=== PATIENT | female | born 1950 | race African-American/Black ===

== ENCOUNTER 2016-11-03 00:07 | Inpatient (IN) | payer OTHER ==
[~2016-11-03] VITALS: Ht 152.4 cm; Wt 134.0 kg
[2016-11-03] VITALS (7 sets, daily range): BP systolic 111–172; BP diastolic 49–92
--- NOTE | ~2016-11-03 | HC ---
[facility] [address] [place] [address] CONSULTATION Name: RADHA ALEMAN Room #: 455-P ADM IN M.R.#: [id number] Admission: 11/03/16 Attend Phys: Gilberto Phillips MD Discharge: Date of : 50 Report #: [id number] THIS REPORT FOR: //name// CC: [facility] REASON FOR ADMISSION: Shortness of breath and chest tightness. REASON FOR PRESENTATION: Chronic kidney disease. HISTORY OF PRESENT ILLNESS: This is a 67-year-old who is well known to me from my clinic. She stays at the [facility]. She has chronic kidney disease with a baseline creatinine of around 2. She is known to have obstructive sleep apnea. She is also known to have pulmonary hypertension, multiple sclerosis, diabetes mellitus and decubitus ulcers in the past. She presented to the emergency room complaining of shortness of breath. She utilizes chronic Pace catheters because of her multiple sclerosis. While taking a shower, she reported some chest tightness and shortness of breath and was brought to the emergency room for further evaluation. There was no PND or orthopnea. No nausea or vomiting. From the renal perspective, the patient has a baseline creatinine of around 2. Unfortunately, she has had numerous worsening of her kidney function because of over-diuresis and combination of diuretics in the past. I have tried to keep her out of the hospital by managing her diuretics and coordinating care with the [facility]. When she presented to the emergency room yesterday, she was found to be hyperkalemic. As far as I remember, her longterm physicians managing her diuretics sometimes add metolazone and this complicates her potassium issues. So, she gets placed on some potassium supplement along with spironolactone. This usually results in hyperkalemia. I was consulted to manage her hyperkalemia and her CKD. PAST MEDICAL HISTORY: 1. Pulmonary hypertension. 2. Chronic kidney disease stage 3. 3. Diabetes mellitus. 4. Pulmonary hypertension. 5. Obstructive sleep apnea. 6. Anemia. 7. Remote history of sacral decubitus. 8. Obesity. MEDICATIONS: 1. Gabapentin. 2. Aspirin. 3. Amlodipine. 4. Hydrocodone. [address] [address] CONSULTATION Name: RADHA ALEMAN Room #: 455-P [facility] IN .R.#: [id number] Admission: 11/03/16 Attend Phys: Gilberto Phillips MD Discharge: Date of : 50 Report #: [id number] 5. Folic acid. 6. Insulin. ALLERGIES: No known drug allergies. SOCIAL HISTORY: She resides at the [facility]. No drug or alcohol abuse. FAMILY HISTORY: Significant for hypertension and diabetes mellitus. REVIEW OF SYSTEMS: GENERAL: No fever or chills. CARDIOVASCULAR: Significant for chest pain and chest tightness. PULMONARY: No cough or hemoptysis. GASTROINTESTINAL: Occasional nausea, but no vomiting. GENITOURINARY: No frequency, no urgency. PHYSICAL EXAMINATION: GENERAL: The patient was alert, oriented, in no apparent distress. VITAL SIGNS: Most recent vitals revealed a blood pressure of 140/55, pulse rate of 85 and temperature of 36.8. HEAD AND NECK: No jugular venous distention, no bruit, no thyromegaly. CHEST: Decreased air entry bilaterally. CARDIOVASCULAR: Regular, with no rub detected. ABDOMEN: Soft, nontender with no hepatosplenomegaly. LOWER EXTREMITIES: Trace edema. LABORATORY DATA: Laboratory values reviewed. Hemoglobin is 8.3. Potassium is down to 6, creatinine is 2.5. ASSESSMENT, IMPRESSION AND PLAN: 1. Chronic kidney disease. 2. Hyperkalemia. 3. Pulmonary hypertension. 4. Obstructive sleep apnea. 5. Multiple sclerosis. 6. Discontinue spironolactone and potassium supplement. 7. Treat her hyperkalemia. 8. Gentle diuresis. 9. Avoid combination of diuretics. 10. Continue to address her current pulmonary and cardiac issues, including her COPD and her obstructive sleep apnea. 11. Cardiac workup. 12. Routine care for her multiple sclerosis. 13. I will communicate with the nursing facility [place] [address] CONSULTATION Name: RADHA ALEMAN Room #: 455-P ADM IN M.R.#: [id number] Admission: 11/03/16 Attend Phys: Gilberto Phillips MD Discharge: Date of : 50 Report #: [id number] regimen and the need to stay away from the combination of diuretics, potassium supplement and Aldactone. <ELECTRONICALLY SIGNED> By: Josep Monsalve MD 11/05/16 1554 1017 1253 Josep Monsalve MD /nt
--- NOTE | ~2016-11-03 | EKG ---
[place] [address] [facility] [place] [address] ELECTROCARDIOGRAM REPORT Name: RADHA ALEMAN Room #: 455-P ADM IN M.R.#: [id number] Admission: 11/03/16 Attend Phys: Michoacano Olivas MD Discharge: Date of : 50 Report #: [id number] THIS REPORT FOR: //name// [facility] ED Test Date: 2016-11-03 Test Time: 00:16:21 Pat Name: RADHA ALEMAN Department: Room: [facility] Gender: F Field Crop Farmer: ROSEEIAARON : 1950 Requested By: Tena Worrell Order Number: [id number] MD: Camden Rudolph Measurements Intervals [place] Rate: 82 P: OR: QRS: -36 QRSD: 154 T: 66 QT: 414 QTc: 484 Interpretive Statements Accelerated junctional rhythm Right bundle branch block Left ventricular hypertrophy Baseline wander in lead(s) V1 Compared to ECG 05/17/2016 06:58:58 Accelerated junctional rhythm now present Sinus rhythm no longer present Electronically Signed On 11-03-2016 7:47:58 DAMAGE APPRAISER by Camden Rudolph [email or web address] <ELECTRONICALLY SIGNED> By: Camden Rudolph MD, [facility] 11/03/16 0747 0016 0016 Camden Rudolph MD, [facility] /EPI
[~2016-11-03 00:07] MED LIST: ACID CONTROL20 MG PO; ALDACTONE25 MG PO; ALLOPURINOL 10100 M1 PO; BAYER CHEWABLE81 MG PO; BREWER'S YEAST500 MG PO; COLACE100 MG PO; COREG25 MG PO; DEMADEX 2020 MG/1 TA PO; DUONEB 0.5 MG-33 ML INH; ESCITALOPRAM OX20 MG PO; FLORASTOR250 MG PO; FOLIC ACID1 MG PO; GABAPENTIN 100100 MG PO; GENTAMICIN 0.1% TOP; GLYCOLAX255 GM PO; HUMALOG100 UNIT/1; HYDRALAZINE 2525 M1 PO; HYDRALAZINE 5050 MG PO; IRON325 PO; JANUVIA100 MG PO; KLOR-CON 1010 MEQ PO; KLOR-CON M2020 MEQ PO; LANTUS SOL100 UNIT/1 SUBQ; LASIX 40 MG TAB40 M2 PO; LEVAQUIN 250 M250 MG PO; LEVEMIR SUBQ; LEXAPRO 10 MG T10 M1 PO; LISINOPRIL40 MG PO; LOPERAMIDE2 MG PO; MELATONIN1 MG PO; MELATONIN3 MG PO; METOLAZONE 2.52.5 M1 PO; MIRALAX17 G1 PO; MIRALAX17 GM PO; NABUMETONE 750750 M1 PO; NEURONTIN 400M400 M2 PO; NORCO 10-325 T1 EACH PO; NORCO 5-325 TA1 EACH PO; NORVASC10 MG PO; NOVOLOG100 UNIT/1 SUBQ; SYSTANE GEL EYE10 ML OP; TYLENOL325 MG PO; VENTOLIN HFA 1818 GM INH; VITAMIN C500 M1 PO; VITAMIN D2000 UNIT PO
[2016-11-03 00:28] LABS: ABSOLUTE NEUTROPHILS 11.7 thou/uL (1.4-8.2); BASOPHILS 0.5 % (0.0-2.0); EOSINOPHILS 6.6 % (0.0-3.0); HEMATOCRIT 31.9 % (37.0-47.0); HEMOGLOBIN 10.1 gm/dL (12.0-15.0); LYMPHOCYTES 14.3 % (24.0-44.0); MCH 29.6 pg (26.0-34.0); MCHC 31.7 % (28.0-37.0); MCV 93.5 fL (80.0-100.0); MONOCYTES 4.5 % (1.0-8.0); PLATELET COUNT 264 thou/uL (150-400); POLYS 74.1 % (36.0-66.0); RBC 3.41 mil/uL (4.20-5.00); RDW 16.9 % (10.5-14.5); WBC 15.8 thou/uL (4.0-11.0)
[2016-11-03 00:32] LABS: MANUAL DIFF NO
[2016-11-03 00:37] LABS: ANION GAP 12 mmol/L (7-16); BUN 40 mg/dL (7-18); CALCIUM 9.1 mg/dL (8.5-10.1); CHLORIDE 105 mmol/L (98-107); CO2 23 mmol/L (21-32); GLUCOSE 192 mg/dL (70-99); POTASSIUM 4.8 mmol/L (3.5-5.1); SODIUM 140 mmol/L (136-145)
[2016-11-03 00:51] LABS: ALBUMIN 3.5 g/dL (3.4-5.0); ALKALINE PHOSPHATASE 90 U/L (46-116); NT-PRO BRAIN NAT PEPTIDE 2346 pg/mL (<300); SGOT 10 U/L (15-37); SGPT 14 U/L (30-65); TOTAL BILIRUBIN 0.4 mg/dL (<0.1-1.0); TOTAL PROTEIN 8.7 g/dL (6.4-8.2); TROPONIN-I < 0.04 ng/mL (<0.04-0.07)
[2016-11-03] MEDS ORDERED: MELATONIN3 MG PO (01:16)
[2016-11-03] MEDS ORDERED: NEURONTIN 300300 M1 PO (01:18)
[2016-11-03 11:08] LABS: CHOLESTEROL 196 mg/dL (<200); HDL CHOLESTEROL 48 mg/dL (>40); LDL CHOLESTEROL 135 mg/dL (<100); TC:HDL 4.1 Ratio (Not establshd); TRIGLYCERIDE 65 mg/dL (<150); VLDL 13 mg/dL (<40)
[2016-11-03 11:09] LABS: SERUM ASSESSMENT Clear
[2016-11-04 04:26] VITALS: BP 128/58
[2016-11-04 06:01] LABS: ALBUMIN 3.1 g/dL (3.4-5.0); ALKALINE PHOSPHATASE 70 U/L (46-116); ANION GAP 12 mmol/L (7-16); BUN 52 mg/dL (7-18); CALCIUM 8.8 mg/dL (8.5-10.1); CHLORIDE 102 mmol/L (98-107); CO2 22 mmol/L (21-32); CREATININE 2.4 mg/dL (0.6-1.3); GLUCOSE 268 mg/dL (70-99); MAGNESIUM 1.9 mg/dL (1.8-2.4); SGOT < 5 U/L (15-37); SGPT 12 U/L (30-65); SODIUM 136 mmol/L (136-145); TOTAL BILIRUBIN 0.3 mg/dL (<0.1-1.0); TOTAL PROTEIN 7.7 g/dL (6.4-8.2)
[2016-11-04 06:23] LABS: POTASSIUM 6.4 mmol/L (3.5-5.1)
[2016-11-04 07:00] LABS: HEMATOCRIT 26.7 % (37.0-47.0); HEMOGLOBIN 8.3 gm/dL (12.0-15.0); MCH 29.4 pg (26.0-34.0); MCV 94.8 fL (80.0-100.0); PLATELET COUNT 210 thou/uL (150-400); RBC 2.81 mil/uL (4.20-5.00); WBC 12.5 thou/uL (4.0-11.0)
[2016-11-04 07:13] LABS: CALCIUM 9.3 mg/dL (8.5-10.1); CREATININE 2.5 mg/dL (0.6-1.3)
[2016-11-04 07:29] LABS: MANUAL DIFF YES
[2016-11-04 08:10] VITALS: BP 141/55
[2016-11-04 08:53] LABS: ANISOCYTOSIS 1+; TOTAL CELL COUNT 100
[2016-11-04 12:38] VITALS: BP 127/50
[2016-11-04 15:42] VITALS: BP 148/69
[2016-11-04 20:00] VITALS: BP 149/55
[2016-11-05 04:00] VITALS: BP 149/68
[2016-11-05 04:41] LABS: HEMATOCRIT 24.3 % (37.0-47.0); HEMOGLOBIN 7.7 gm/dL (12.0-15.0); MCH 29.4 pg (26.0-34.0); MCHC 31.8 % (28.0-37.0); MCV 92.6 fL (80.0-100.0); PLATELET COUNT 210 thou/uL (150-400); RBC 2.62 mil/uL (4.20-5.00); RDW 16.8 % (10.5-14.5); WBC 12.3 thou/uL (4.0-11.0)
[2016-11-05 04:49] LABS: ALKALINE PHOSPHATASE 66 U/L (46-116); ANION GAP 11 mmol/L (7-16); BUN 57 mg/dL (7-18); CALCIUM 8.7 mg/dL (8.5-10.1); CHLORIDE 102 mmol/L (98-107); CO2 26 mmol/L (21-32); CREATININE 2.4 mg/dL (0.6-1.3); GLUCOSE 308 mg/dL (70-99); MANUAL DIFF YES; SGOT < 5 U/L (15-37); SGPT 14 U/L (30-65); SODIUM 139 mmol/L (136-145); TOTAL BILIRUBIN 0.3 mg/dL (<0.1-1.0); TOTAL PROTEIN 7.2 g/dL (6.4-8.2)
[2016-11-05 05:02] LABS: POTASSIUM 4.5 mmol/L (3.5-5.1)
[2016-11-05 06:14] LABS: ABSOLUTE NEUTROPHILS 11.1 thou/uL (1.4-8.2); ANISOCYTOSIS 1+; TOTAL CELL COUNT 100
[2016-11-05 07:14] VITALS: BP 136/46
[2016-11-05 12:32] VITALS: BP 126/45
[2016-11-05 15:30] VITALS: BP 134/59
[2016-11-05 19:31] VITALS: BP 132/56
[2016-11-06 03:28] VITALS: BP 151/57
[2016-11-06 06:37] LABS: ALBUMIN 2.9 g/dL (3.4-5.0); CALCIUM 8.4 mg/dL (8.5-10.1); CREATININE 2.1 mg/dL (0.6-1.3); PHOSPHORUS 3.7 mg/dL (2.5-4.9)
[2016-11-06 07:08] VITALS: BP 172/80
[2016-11-06 08:08] LABS: POTASSIUM 4.4 mmol/L (3.5-5.1)
[2016-11-06 10:23] LABS: HEMATOCRIT 26.9 % (37.0-47.0); HEMOGLOBIN 8.8 gm/dL (12.0-15.0); MCH 30.1 pg (26.0-34.0); MCHC 32.7 % (28.0-37.0); RBC 2.92 mil/uL (4.20-5.00); RDW 17.2 % (10.5-14.5); WBC 10.8 thou/uL (4.0-11.0)
[2016-11-06 10:27] LABS: URINE BILIRUBIN NEGATIVE (Negative); URINE BLOOD TRACE (Negative); URINE COLOR YELLOW; URINE GLUCOSE-RANDOM* NEGATIVE (Negative); URINE KETONES NEGATIVE (Negative); URINE NITRITE POSITIVE (Negative); URINE PROTEIN (DIPSTICK) NEGATIVE (Negative); URINE SPECIFIC GRAVITY 1.015 (1.003-1.035); URINE UROBILINOGEN 0.2 E.U./dl (0.2-1.0)
[2016-11-06 10:31] LABS: CASTS None Seen /LPF (None Seen); CRYSTALS None Seen /LPF (None Seen); SQUAMOUS 0-3 Few /LPF (0-3); URINE RBC None Seen /HPF (0-2); URINE WBC 6-15 Few /HPF (0-5)
[2016-11-06 11:49] VITALS: BP 150/63
[2016-11-06 16:06] VITALS: BP 136/65
[2016-11-06 19:42] VITALS: BP 116/64
[2016-11-07 00:18] VITALS: BP 132/60
[2016-11-07 03:28] VITALS: BP 138/67
[2016-11-07 04:27] LABS: HEMATOCRIT 25.8 % (37.0-47.0); HEMOGLOBIN 8.2 gm/dL (12.0-15.0); MCH 29.7 pg (26.0-34.0); MCHC 31.8 % (28.0-37.0); MCV 93.5 fL (80.0-100.0); RBC 2.76 mil/uL (4.20-5.00); RDW 17.2 % (10.5-14.5); WBC 7.1 thou/uL (4.0-11.0)
[2016-11-07 04:39] LABS: ALBUMIN 2.6 g/dL (3.4-5.0); CALCIUM 8.4 mg/dL (8.5-10.1); CREATININE 2.1 mg/dL (0.6-1.3); PHOSPHORUS 4.3 mg/dL (2.5-4.9); POTASSIUM 4.3 mmol/L (3.5-5.1)
[2016-11-07 08:20] VITALS: BP 142/69
[2016-11-07 11:44] VITALS: BP 142/75
[2016-11-07 16:00] VITALS: BP 130/63
[2016-11-07 19:38] VITALS: BP 147/62
[2016-11-08 04:14] VITALS: BP 132/59
[2016-11-08 05:47] LABS: HEMOGLOBIN 8.2 gm/dL (12.0-15.0); MCHC 32.7 % (28.0-37.0); RBC 2.72 mil/uL (4.20-5.00); RDW 16.9 % (10.5-14.5)
[2016-11-08 06:12] LABS: CALCIUM 8.3 mg/dL (8.5-10.1); CREATININE 2.1 mg/dL (0.6-1.3); POTASSIUM 4.4 mmol/L (3.5-5.1)
[2016-11-08 08:03] VITALS: BP 129/56
[2016-11-08] MEDS ORDERED: CARVEDILOL12.5 MG PO (11:40)
[2016-11-08] MEDS ORDERED: LANTUS100 UNIT/M SUBQ ×2 (11:40)
[2016-11-08] MEDS ORDERED: TORSEMIDE5 MG PO (11:40)
[2016-11-08] MEDS ORDERED: COZAAR 25 MG TA25 M1 PO (11:41)
[2016-11-08 11:55] VITALS: BP 157/70
== END 2016-11-08 19:12 | DRG 682 ==
LOC: ER 00:07 → 4W 01:35 → EROBS 01:35 → 4W 01:59
PROVIDERS: Emergency Medicine; Family Medicine; Hospitalist; Internal Medicine Nephrology; Nurse Practitioner; Nurse Practitioner Acute Care
DX: N17.9 Acute kidney failure, unspecified (principal); I50.33 Acute on chronic diastolic (congestive) heart failure; J96.01 Acute respiratory failure with hypoxia; J90 Pleural effusion, not elsewhere classified; J44.1 Chronic obstructive pulmonary disease with (acute) exacerbation; Z68.43 Body mass index [BMI] 50.0-59.9, adult; G35 Multiple sclerosis; E11.22 Type 2 diabetes mellitus with diabetic chronic kidney disease; E87.5 Hyperkalemia; D64.9 Anemia, unspecified; E11.65 Type 2 diabetes mellitus with hyperglycemia; I45.10 Unspecified right bundle-branch block; E66.9 Obesity, unspecified; I25.10 Atherosclerotic heart disease of native coronary artery without angina pectoris; G47.33 Obstructive sleep apnea (adult) (pediatric); I27.2 Other secondary pulmonary hypertension; N18.3 Chronic kidney disease, stage 3 (moderate); Z79.899 Other long term (current) drug therapy; Z79.2 Long term (current) use of antibiotics; Z79.82 Long term (current) use of aspirin; Z82.49 Family history of ischemic heart disease and other diseases of the circulatory system; Z83.3 Family history of diabetes mellitus; Z87.891 Personal history of nicotine dependence
CPT/HCPCS: 10045

== ENCOUNTER 2016-12-31 10:08 | Emergency (ER) | payer OTHER ==
[~2016-12-31] VITALS: Ht 152.4 cm; Wt 124.7 kg
[~2016-12-31 10:08] MED LIST changes: +CARVEDILOL12.5 MG PO; +COZAAR 25 MG TA25 M1 PO; +LANTUS100 UNIT/M SUBQ; +NEURONTIN 300300 M1 PO; +TORSEMIDE5 MG PO
[2016-12-31 13:26] LABS: ABSOLUTE NEUTROPHILS 7.7 thou/uL (1.4-8.2); BASOPHILS 0.8 % (0.0-2.0); HEMATOCRIT 25.6 % (37.0-47.0); HEMOGLOBIN 8.3 gm/dL (12.0-15.0); LYMPHOCYTES 14.7 % (24.0-44.0); MCHC 32.4 g/dL (28.0-37.0); MCV 89.5 fL (80.0-100.0); MONOCYTES 6.2 % (1.0-8.0); PLATELET COUNT 255 thou/uL (150-400); POLYS 75.3 % (36.0-66.0); RBC 2.86 mil/uL (4.20-5.00); RDW 18.1 % (10.5-14.5); WBC 10.2 thou/uL (4.0-11.0)
[2016-12-31 13:27] LABS: MANUAL DIFF NO
[2016-12-31 13:32] LABS: CALCIUM 8.9 mg/dL (8.5-10.1); CREATININE 2.3 mg/dL (0.6-1.3); POTASSIUM 4.1 mmol/L (3.5-5.1)
[2016-12-31 13:39] LABS: APTT 27.8 Seconds (24.5-32.8); PROTIME 10.4 Seconds (9.3-11.4)
== END 2016-12-31 17:24 | disposition home or self-care (01) ==
LOC: ER 10:08
PROVIDERS: Emergency Medicine
DX: R04.2 Hemoptysis (principal); D64.9 Anemia, unspecified; G35 Multiple sclerosis; G47.30 Sleep apnea, unspecified; E66.9 Obesity, unspecified; E11.9 Type 2 diabetes mellitus without complications; F41.9 Anxiety disorder, unspecified; M10.9 Gout, unspecified; I13.0 Hypertensive heart and chronic kidney disease with heart failure and stage 1 through stage 4 chronic kidney disease, or unspecified chronic kidney disease; N18.9 Chronic kidney disease, unspecified; I50.9 Heart failure, unspecified; K74.60 Unspecified cirrhosis of liver; Z87.891 Personal history of nicotine dependence; Z68.43 Body mass index [BMI] 50.0-59.9, adult

== ENCOUNTER 2017-01-25 15:12 | Emergency (ER) | payer OTHER ==
[~2017-01-25] VITALS: Ht 162.6 cm; Wt 113.4 kg
== END 2017-01-25 17:54 ==
LOC: ER 15:12
DX: S91.111A Laceration without foreign body of right great toe without damage to nail, initial encounter (principal); G35 Multiple sclerosis; G47.30 Sleep apnea, unspecified; E11.22 Type 2 diabetes mellitus with diabetic chronic kidney disease; I13.0 Hypertensive heart and chronic kidney disease with heart failure and stage 1 through stage 4 chronic kidney disease, or unspecified chronic kidney disease; N18.9 Chronic kidney disease, unspecified; I50.22 Chronic systolic (congestive) heart failure; J44.9 Chronic obstructive pulmonary disease, unspecified; K74.60 Unspecified cirrhosis of liver; E66.9 Obesity, unspecified; Z68.41 Body mass index [BMI] 40.0-44.9, adult; F41.9 Anxiety disorder, unspecified; Z86.2 Personal history of diseases of the blood and blood-forming organs and certain disorders involving the immune mechanism; Z96.0 Presence of urogenital implants; Z87.891 Personal history of nicotine dependence; W22.8XXA Striking against or struck by other objects, initial encounter; Y93.89 Activity, other specified; Y92.89 Other specified places as the place of occurrence of the external cause; Y99.9 Unspecified external cause status

== ENCOUNTER 2017-03-23 14:48 | Emergency (ER) | payer OTHER ==
[~2017-03-23] VITALS: Ht 152.4 cm; Wt 133.4 kg
[2017-03-23 16:00] LABS: HEMATOCRIT 22.1 % (37.0-47.0); HEMOGLOBIN 7.1 gm/dL (12.0-15.0); MCH 29.2 pg (26.0-34.0); MCHC 32.3 g/dL (28.0-37.0); MCV 90.3 fL (80.0-100.0); RBC 2.45 mil/uL (4.20-5.00); RDW 18.8 % (10.5-14.5); WBC 8.6 thou/uL (4.0-11.0)
[2017-03-23 16:08] LABS: CALCIUM 8.7 mg/dL (8.5-10.1); CREATININE 2.9 mg/dL (0.6-1.0); POTASSIUM 4.8 mmol/L (3.5-5.1)
== END 2017-03-23 17:44 | disposition home or self-care (01) ==
LOC: ER 14:48
PROVIDERS: Emergency Medicine
DX: D64.89 Other specified anemias (principal); E11.22 Type 2 diabetes mellitus with diabetic chronic kidney disease; I13.0 Hypertensive heart and chronic kidney disease with heart failure and stage 1 through stage 4 chronic kidney disease, or unspecified chronic kidney disease; N18.9 Chronic kidney disease, unspecified; I50.9 Heart failure, unspecified; E66.9 Obesity, unspecified; K74.60 Unspecified cirrhosis of liver; J44.9 Chronic obstructive pulmonary disease, unspecified; F41.9 Anxiety disorder, unspecified; Z96.0 Presence of urogenital implants; Z79.4 Long term (current) use of insulin; Z87.891 Personal history of nicotine dependence

== ENCOUNTER 2017-03-27 02:41 | Inpatient (IN) | payer OTHER ==
[2017-03-27] VITALS (8 sets, daily range): BP systolic 134–205; BP diastolic 60–84
[~2017-03-27] VITALS: Ht 152.4 cm; Wt 140.5 kg
--- NOTE | ~2017-03-27 | S ---
[facility] [place] [address] SURGICAL PATH RPT PROCEDURE Name: SAIRA ALEMAN Room #: 450-P [facility] IN M.R.#: [id number] Admission: 03/27/17 Date of : 50 Discharge: 03/31/17 Report #: [id number] Path Case #: [id number] PATHOLOGY REPORT COLLECTION DATE: 03/31/2017 RECEIVED DATE: 04/01/2017 SUBMITTING PHYS: Dr. Melani Steven OTHER PHYS: Dr. Tiffany Pretty SPECIMEN(S) RECEIVED: A.Bx of duodenum-random B.Bx of antral gastritis * * * * * * * * * * * * FINAL DIAGNOSIS: A. Small bowel, random duodenum, endoscopic biopsy: - No significant diagnostic abnormalities present. B. Gastric mucosa, gastritis, endoscopic biopsy: - Moderate reactive gastropathy with fibrotic lamina propria. - Negative for intestinal metaplasia or atrophy. - Negative for Helicobacter pylori. COMMENT: Helicobacter pylori immunohistochemical stain performed on block B1-negative. (IUV:mgr; d/t: 04/04/17) PATHOLOGIST: Enedelia Hawkins M.D. REPORT ELECTRONICALLY SIGNED BY: Enedelia Hawkins M.D. DATE/TIME: 04/04/2017 17:08 * * * * * * * * * * * * GROSS PATHOLOGY: A. Received in formalin labeled "Saira Aleman, BX of duodenumrandom," is a segment of valencia soft tissue measuring 0.4 x 0.2 x 0.2 cm in maximum dimension. The specimen is submitted entirely in cassette A1. B. Received in formalin labeled "Saira Aleman, BX of antral gastritis," are 4 segments of valencia soft tissue measuring 1.9 x 0.2 x 0.2 cm in aggregate dimensions and ranging from 0.3 to 0.6 cm in maximum dimension. The specimen is submitted entirely in cassette B1. (KYM; 04/01/2017) CLINICAL HISTORY: Anemia [facility] [address] [place] [address] SURGICAL PATH RPT PROCEDURE Name: SAIRA ALEMAN Room #: 450-[facility] IN M.R.#: [id number] Admission: 03/27/17 Date of : 50 Discharge: 03/31/17 Report #: [id number] Path Case #: [id number] INITIAL CPT CODE(S): A; 27011 B; 96843, 99242 Professional services performed by [facility] at [address] , [place] [address] Technical services performed by [facility] at [address] [place] [address], [address], [place] [address]. Jordan Valdes [facility] [address] [address] PHONE: [phone] DIRECTOR: Avinash Murphy M.D. * * * END OF REPORT * * *
--- NOTE | ~2017-03-27 | HC ---
[facility] [place] [address] CONSULTATION Name: RADHA ALEMAN Room #: 450-P ADM IN M.R.#: [id number] Admission: 03/27/17 Attend Phys: Tiffany Pretty MD Discharge: Date of : 50 Report #: [id number] THIS REPORT FOR: //name// CC: Gilberto DEE NEPHROLOGY CONSULTATION ATTENDING PHYSICIAN: Dr. Isabel. REASON FOR CONSULTATION: Chronic kidney disease. HISTORY OF PRESENT ILLNESS: The patient, well known to our service, has been seen on multiple admissions. She has chronic kidney disease with a baseline creatinine of about 2.5. She has morbid obesity with long-standing hypertension, diabetes, multiple sclerosis, for the most part bedbound and immobile, sleep apnea and chronic respiratory failure with home O2 at 3 liters. She became more short of breath. She came to the emergency room. She had extensive infiltrates which suggested possible edema or pneumonia and she was admitted. PAST MEDICAL HISTORY: She has the most part right-sided failure with a reasonably good left-sided ejection fraction. She has multiple the medical problems as eluded to above. She is DNR. ALLERGIES: No known medical allergies. SOCIAL HISTORY: Lives at home with her daughter. No code blue. FAMILY HISTORY: Negative for renal disease. REVIEW OF SYSTEMS: GENERAL: She has been feeling poorly. She is rather lethargic, not giving me a good history today. EYES: Vision seems to be okay. ENT: Hearing okay. She says she can swallow. ENDOCRINE: Positive for the diabetes. RESPIRATORY: Easily short-winded, chronically short winded, short winded at rest. CARDIAC: Denies any chest pains. GASTROINTESTINAL: Appetite is okay. GENITOURINARY: Chronic suprapubic catheter. SKELETAL: Chronic edema, particularly lower extremities. NEUROLOGIC: Weakness and paraparesis due to the multiple sclerosis. PHYSICAL EXAMINATION: GENERAL: Very obese woman, somewhat lethargic. [facility] [address] [place] [address] CONSULTATION Name: RADHA ALEMAN Room #: 450-P [facility] IN [facility].#: [id number] Admission: 03/27/17 Attend Phys: Tiffany Pretty MD Discharge: Date of : 50 Report #: [id number] SKIN: Very brawny edema in the lower extremities, rather massive. SKELETAL: Passively obese. HEENT: Extraocular movements are full. Vision intact. No scleral icterus. Hearing intact. Mucous membranes are slightly dry. NECK: Supple. Neck veins cannot be visualized. CHEST: Shows diminished breath sounds. HEART: Distant. ABDOMEN: Soft. EXTREMITIES: As above. LABORATORY DATA: Hemoglobin is only 7.8 with MCV of 89. Sodium 144, potassium 5, chloride 110, bicarbonate 24, BUN 57 and creatinine 2.5. Urinalysis pending. ASSESSMENT AND PLAN: 1. Chronic kidney disease. She has chronic kidney disease. I will stop her ARB as this may improve her renal perfusion. We will increase diuretics as she is quite fluid overloaded, probably was not on and off diuretics at home. 2. Multiple sclerosis with severe neurologic impairment. 3. Long-standing diabetes mellitus. 4. History of hypertension. 5. Right-sided heart failure with cor pulmonale. 6. Suprapubic catheter with frequent urinary tract infections. <ELECTRONICALLY SIGNED> By: Eriberto Reina MD 03/29/17 0718 1631 0116 Cesario Harrison MD /nt
--- NOTE | ~2017-03-27 | EKG ---
[address] [place] [address] ELECTROCARDIOGRAM REPORT Name: RADHA ALEMAN Room #: 450-P ADM IN M.R.#: [id number] Admission: 03/27/17 Attend Phys: Gilberto Phillips MD Discharge: Date of : 50 Report #: [id number] THIS REPORT FOR: //name// [facility] Test Date: 2017-03-27 Test Time: 10:11:57 Pat Name: RADHA AELMAN Department: Room: 450 P Gender: F Client Consultant: RAFA : 1950 Requested By: Gilberto Phillips Order Number: [id number] MD: Camden Rudolph Measurements Intervals [place] Rate: 69 P: 67 IN: 196 QRS: -41 QRSD: 149 T: 42 QT: 478 QTc: 512 Interpretive Statements Sinus rhythm RBBB and LAFB Compared to ECG 03/11/2017 11:11:56 No significant changes Electronically Signed On 03-27-2017 16:03:16 CDT by Camden Rudolph [email or web address] <ELECTRONICALLY SIGNED> By: Camden Rudolph MD, [facility] 03/27/17 1603 1011 1011 Camden Rudolph MD, [facility] /EPI
--- NOTE | ~2017-03-27 | EKG ---
[address] [place] [address] ELECTROCARDIOGRAM REPORT Name: RADHA ALEMAN Room #: 450-P ADM IN M.R.#: [id number] Admission: 03/27/17 Attend Phys: Gilberto Phillips MD Discharge: Date of : 50 Report #: [id number] THIS REPORT FOR: //name// [facility] ED Test Date: 2017-03-27 Test Time: 03:27:27 Pat Name: RADHA ALEMAN Department: Room: 450 P Gender: F Home Stereo Equipment Installer: Jeremiah GONG : 1950 Requested By: Jordan Valdes Order Number: [id number] MD: Camden Rudolph Measurements Intervals [place] Rate: 51 P: 67 DE: 168 QRS: -36 QRSD: 150 T: 28 QT: 526 QTc: 485 Interpretive Statements Sinus rhythm Right bundle branch block Compared to ECG 03/11/2017 11:11:56 No significant change was found Electronically Signed On 03-27-2017 16:02:53 CDT by Camden Rudolph [email or web address] <ELECTRONICALLY SIGNED> By: Camden Rudolph MD, [facility] 03/27/17 1602 0327 6 Camden Rudolph MD, [facility] /EPI
--- NOTE | ~2017-03-27 | HC ---
[facility] [place] [address] CONSULTATION Name: RADHA ALEMAN Room #: 450-P [facility] IN M.R.#: [id number] Admission: 03/27/17 Attend Phys: Gilberto Phillips MD Discharge: Date of : 50 Report #: [id number] THIS REPORT FOR: //name// CC: Gilberto KABA PCP DATE OF SERVICE: 03/27/2017 DATE OF SERVICE: 03/27/2017. REASON FOR CONSULTATION: Pulmonary infiltrates. IMPRESSION: 1. Pulmonary infiltrates, question edema versus pneumonia. 2. Chronic kidney disease. 3. Peripheral edema. 4. Hypertension. 5. Obstructive sleep apnea with possible obesity hypoventilation. 6. History of MS. 7. Indwelling Pace. 8. Question pulmonary fibrosis. PLAN: We will do BiPAP, aerosol therapy and culture. Diuresis per cardiology and renal. If elected, we will check sputum and urine strep and legionella. We will follow closely with. DVT prophylaxis per primary. HISTORY OF PRESENT ILLNESS: A 66-year-old female comes in with progressive edema, shortness of breath, cough. No nausea or vomiting, no chills. She relates she used to have a BiPAP; however, no longer has one. ALLERGIES: None known. MEDICATIONS: Included melatonin, nitrofurantoin, torsemide, glycol, Colace, Coreg, Pepcid, escitalopram, aspirin. FAMILY HISTORY: Positive for heart disease, congestive heart failure. SOCIAL HISTORY: Per chart, history of tobacco in past. Negative significant ETOH. PAST MEDICAL HISTORY: History of congestive heart failure, diastolic; hypertension, refractory; CKD; MS; obesity; chronic anemia; SIN. PAST SURGICAL HISTORY: Include suprapubic catheter, hysterectomy, cholecystectomy, tonsillectomy. [facility] [place] [address] CONSULTATION Name: RADHA ALEMAN Room #: 450-P [facility] IN ..#: [id number] Admission: 03/27/17 Attend Phys: Gilberto Phillips MD Discharge: Date of : 50 Report #: [id number] PHYSICAL EXAMINATION: VITAL SIGNS: Temperature 99, pulse 51, respiratory rate 20, and BP 134/60. EYES: Negative icterus. LUNGS: Crackles bilateral. HEART: Regular. ABDOMEN: Bowel sounds present. EXTREMITIES: Positive edema. LABORATORY DATA: PH 7.4, pCO2 of 34, pO2 of 66 on 10 liters. White count 11, hemoglobin 7.8, platelets 236. BUN 4311, creatinine 2.5. IMAGING STUDIES: Chest x-ray showed extensive bilateral infiltrates. We will follow closely with you. By: 1655 0012 Sugar Orellaan MD /nt
--- NOTE | ~2017-03-27 | 2DMMODE ---
[facility] [address] [place] [address] 2 D/M-MODE ECHOCARDIOGRAM Name: RADHA ALEMAN Room #: 450-P [facility] IN ..#: [id number] Admission: 03/27/17 Attend Phys: Joel Gutierrez Discharge: Date of : 50 Date of Service: 03/28/17 1058 Report #: [id number] THIS REPORT FOR: //name// APPROVED REPORT Study performed: 03/28/2017 09:47:23 EXAM: Comprehensive 2D, Doppler, and color-flow Echocardiogram Patient Location: Bedside Room #: [facility] Other Information Study Quality: Technically Difficult Indications Congestive Heart Failure COPD Diabetes Hypertension/HDD Echo Enhancing Agent Indication: Endocardial border delineation Agent(s) / Amount(s) Used: Definity 2 cc 2D Dimensions RVDd: 38.82 mm LVEF(%): 63.02 (>50%) IVSd: 12.21 (7-11mm) LVOT Diam: 20.22 (18-24mm) LVDd: 46.93 mm PWd: 12.50 (7-11mm) Ascending Ao: 32.22 (22-36mm) LVDs: 30.93 (25-40mm) Aortic Root: 27.88 mm IVC: 25.00 mm Malik's LVEF: 63.02 % Volumes Left Atrial Volume (Systole) Single Plane 4CH: 81.80 mL Single Plane 2CH: 83.13 mL LA ESV Index: 23.00 mL/m2 Aortic Valve AoV Peak Urbano.: 2.14 m/s AO Peak Gr.: 18.25 mmHg LVOT Max P.32 mmHg LVOT Max V: 0.91 m/s CHACE Vmax: 1.37 cm2 [facility] [place] [address] 2 D/M-MODE ECHOCARDIOGRAM Name: RADHA ALEMAN Room #: [facility] IN [facility].#: [id number] Admission: 03/27/17 Attend Phys: Joel Gutierrez Discharge: Date of : 50 Date of Service: 03/28/17 1058 Report #: [id number] Mitral Valve E/A Ratio: 1.2 MV Decel. Time: 230.87 ms MV E Max Urbano.: 1.09 m/s MV A Urbano.: 0.94 m/s MV PHT: 66.95 ms IVRT: 79.58 ms Pulmonary Valve PV Peak Urbano.: 1.06 m/s PV Peak Gr.: 4.48 mmHg Pulmonary Vein P Vein S: 0.59 m/s P Vein A: 0.27 m/s P Vein D: 0.39 m/s P Vein A Dur.: 110.7 msec P Vein S/D Ratio: 1.51 Tricuspid Valve RAP Estimate: 15.00 mmHg Left Ventricle The left ventricle is normal size. Mild concentric left ventricular hypertrophy. The left ventricular systolic function is normal. The left ventricular ejection fraction is within the normal range. LVEF is 60%. Right Ventricle Right ventricle size is normal. The right ventricular systolic function is normal. Atria The left atrium size is normal. The right atrium size is normal. Aortic Valve The aortic valve is mildly sclerotic. No aortic regurgitation is present. There is no aortic valvular stenosis. Mitral Valve The mitral valve is normal in structure. There is no mitral valve regurgitation noted. No evidence of mitral valve stenosis. Tricuspid Valve The tricuspid valve is normal in structure. Trace tricuspid regurgitation. Pulmonic Valve [facility] [address] [place] [address] 2 D/M-MODE ECHOCARDIOGRAM Name: ALEMANSUHARADHA Cale Room #: 450-P [facility] IN ..#: [id number] Admission: 03/27/17 Attend Phys: Joel Gutierrez Discharge: Date of : 50 Date of Service: 03/28/17 1058 Report #: [id number] The pulmonary valve is normal in structure. Trace pulmonic regurgitation. Great Vessels The aortic root is normal in size. IVC is dilated and collapses <50% with inspiration. Pericardium Trace pericardial effusion. There is no pleural effusion. <Conclusion> The left ventricle is normal size. Mild concentric left ventricular hypertrophy. The left ventricular systolic function is normal. The left atrium size is normal. Right ventricle size is normal. The left atrium size is normal. The aortic valve is mildly sclerotic. The mitral valve is normal in structure. Trace tricuspid regurgitation. Trace pericardial effusion. <ELECTRONICALLY SIGNED> By: Jamison Holguin MD 03/28/17 1058 1058 1058 Jamison Holguin MD /INF
--- NOTE | ~2017-03-27 | D ---
[facility] [place] [address] DISCHARGE SUMMARY Name: RADHA ALEMAN Room #: 450-P ADM IN M.R.#: [id number] Admission: 03/27/17 Attend Phys: Tiffany Pretty MD Discharge: Date of : 50 Report #: [id number] THIS REPORT FOR: //name// CC: Gilberto Phillips NO PCP Tiffany Pretty DATE OF SERVICE: 03/30/2017 HISTORY OF PRESENT ILLNESS: The patient is a 66-year-old female with multiple medical problems, including advanced MS and history of CHF, who came to the hospital with progressively worsening shortness of breath. Please refer to admission H and P for details. In brief, the patient was found to be in pulmonary edema and respiratory failure. HOSPITALIZATION COURSE: The patient was hospitalized at [facility]. The patient was started on IV diuretics. Real Estate Photographer and ultrasound manager were consulted. Since infiltrates could not be ruled out on the chest x-ray, the patient was also treated with antibiotics for possible pneumonia. On IV diuresis, the patient's condition improved significantly. IV Lasix was changed to the p.o. torsemide. The patient did well. The patient also was found to have acute on chronic anemia, with hemoglobin of less than 7. She received blood transfusion. The patient has guaiac positive stools. GI team was consulted. However, the patient declined EGD and colonoscopy at this time. She has no active bleeding. Currently, the patient's condition is at baseline. Her shortness of breath has improved. Her condition is acceptable, as documented in the patient's chart. DISCHARGE DIAGNOSES: 1. Acute on chronic diastolic congestive heart failure exacerbation. Cardiac echo showed normal ejection fraction. Clinically compensated on current regimen. 2. Suspected pneumonia, the patient will finish antibiotic course. 3. Acute on chronic anemia, status post blood transfusion. 4. Obesity hypoventilation, and sleep apnea. foster care case manager is working to get new CPAP machine for the patient. 5. Multiple sclerosis, disability, care dependent. 6. Hypertension. 7. Dyslipidemia. 8. Chronic obstructive pulmonary disease. 9. Morbid obesity. [facility] [address] [place] [address] DISCHARGE SUMMARY Name: RADHA ALEMAN Room #: 450-P [facility] IN .R.#: [id number] Admission: 03/27/17 Attend Phys: Tiffany Pretty MD Discharge: Date of : 50 Report #: [id number] 10. Chronic kidney disease stage 3. 11. Anxiety. 12. Gout. 13. Status post suprapubic catheter. DISCHARGE MEDICATIONS: Please refer to the medication reconciliation list. FOLLOWUP PLAN: 1. Follow up with the ultrasound manager in 1-2 weeks. 2. Follow up with the primary care physician in 1-2 weeks. DISPOSITION: The patient is discharged back to the long-term. <ELECTRONICALLY SIGNED> By: Tiffany Pretty MD 03/30/17 1807 5703 1451 Tiffany Pretty MD /[place]
--- NOTE | ~2017-03-27 | P ---
[facility] [place] [address] PROCEDURE REPORT Name: RADHA ALEMAN Room #: 450-P [facility] IN M.R.#: [id number] Admission: 03/27/17 Attend Phys: Tiffany Pretty MD Discharge: 03/31/17 Date of : 50 Report #: [id number] THIS REPORT FOR: //name// CC: Gilberto Pretty MD DATE OF SERVICE: 03/31/[address] Pretty. INDICATION FOR PROCEDURE: Evaluate possible etiologies of anemia. Informed consent for this procedure was obtained prior to the administration of any medication. The risks of the procedure which include bleeding, perforation, infection, complications of sedation and the possibility I could miss something have been explained to the patient and she has indicated her consent by signing. Propofol was slowly titrated before and during this procedure for patient comfort by the anesthesia service. The Invivodatan upper videoscope was introduced through the upper esophageal sphincter and advanced under direct visualization to the descending duodenum. Findings are noted on withdrawal of the scope. The duodenum was mildly erythematous and biopsies were obtained x 2 for histopathology. Good hemostasis was noted after those biopsies. Pylorus, normal mucosa. Antrum, erythematous mucosa. There is a watermelon appearance to the antrum of the stomach. Biopsies were obtained x 2 for histopathology from the antrum. The body, cardia and the fundus were all likewise erythematous and random biopsies were obtained x 2 in those areas as well and all placed in the same jar labeled gastric mucosal biopsies, random. Retroflex view did not reveal any hiatal hernia. The scope was withdrawn to the esophagus. The Z-line is appropriately located at the top of gastric folds and appears normal. The esophageal mucosa appears normal throughout its entirety. The scope was withdrawn. The patient went to the recovery room in stable condition. She tolerated the procedure well. IMPRESSION: 1. Gastroduodenitis as described above. Biopsies pending for both areas. 2. Normal esophagus. RECOMMENDATIONS: To await the biopsy results. [address] [address] PROCEDURE REPORT Name: RADHA ALEMAN Room #: 450-P [facility] IN .R.#: [id number] Admission: 03/27/17 Attend Phys: Tiffany Pretty MD Discharge: 03/31/17 Date of : 50 Report #: [id number] Thank you very much once again for allowing me to participate in her care, Dr. Pretty. I did not see any sign of source of chronic blood loss at this time. <ELECTRONICALLY SIGNED> By: Melani Steven DO 03/31/17 2211 1421 1813 Melani Steven DO /nt
[2017-03-27 04:23] LABS: ABG SAMPLE TYPE ARTERIAL; BE(vivo) -3.6 mmol/L (-2 to +3); HCO3 20.6 mmol/L (22.0-26.0); LACTATE 1.13 mmol/L (0.5-2.0); O2(CT) 11.6 mL/dL (15.0-23.0); O2Hb 91.3 % (92.0-98.0); PCO2 33.8 mmHg (35.0-45.0); PO2 66.1 mmHg (80.0-100.0); STICK SITE R.RADIAL; pH 7.403 (7.360-7.450); sO2 93.4 % (92.0-98.0); tCO2 21.6 mmol/L (24.0-30.0)
[2017-03-27 04:35] LABS: HEMATOCRIT 24.9 % (37.0-47.0); HEMOGLOBIN 7.8 gm/dL (12.0-15.0); MCHC 31.4 g/dL (28.0-37.0); MCV 89.3 fL (80.0-100.0); PLATELET COUNT 236 thou/uL (150-400); RBC 2.79 mil/uL (4.20-5.00); RDW 18.8 % (10.5-14.5)
[2017-03-27 04:38] LABS: MANUAL DIFF YES
[2017-03-27 04:45] LABS: CALCIUM 9.3 mg/dL (8.5-10.1); CREATININE 2.5 mg/dL (0.6-1.0)
[2017-03-27 04:53] LABS: TROPONIN-I 0.04 ng/mL (<0.04-0.07)
[2017-03-27 04:59] LABS: ANISOCYTOSIS 2+; TOTAL CELL COUNT 100
[2017-03-27] MEDS ORDERED: COREG25 MG PO (10:07)
[2017-03-27] MEDS ORDERED: GENTAMICIN 0.15 CR TOP (10:12)
[2017-03-27] MEDS ORDERED: SYSTANE 0.3-0.1 EACH OP (10:12)
[2017-03-27] MEDS ORDERED: VITAMINC500 PO (10:13)
[2017-03-27] MEDS ORDERED: MELATONIN1 MG PO (10:14)
[2017-03-27] MEDS ORDERED: DEMADEX20 MG PO (10:15)
[2017-03-27] MEDS ORDERED: LANTUS100 UNIT/M SUBQ (10:17)
[2017-03-27] MEDS ORDERED: NOVOLOG100 UNIT/1 SUBQ (10:19)
[2017-03-27] MEDS ORDERED: LANTUS SUBQ (10:19)
[2017-03-27] MEDS ORDERED: MELATIN3 MG PO (10:20)
[2017-03-27] MEDS ORDERED: MACROBID 100 M100 M2 PO (10:21)
[2017-03-28 03:33] VITALS: BP 162/62
[2017-03-28 05:28] LABS: ABSOLUTE NEUTROPHILS 4.6 thou/uL (1.4-8.2); BASOPHILS 0.6 % (0.0-2.0); EOSINOPHILS 3.5 % (0.0-3.0); LYMPHOCYTES 20.3 % (24.0-44.0); MCH 29.4 pg (26.0-34.0); MCHC 32.9 g/dL (28.0-37.0); MCV 89.3 fL (80.0-100.0); MONOCYTES 6.5 % (1.0-8.0); PLATELET COUNT 200 thou/uL (150-400); POLYS 69.1 % (36.0-66.0); RBC 2.24 mil/uL (4.20-5.00); RDW 18.9 % (10.5-14.5); WBC 6.7 thou/uL (4.0-11.0)
[2017-03-28 05:37] LABS: ALBUMIN 2.7 g/dL (3.4-5.0); CALCIUM 8.7 mg/dL (8.5-10.1); CREATININE 2.5 mg/dL (0.6-1.0); PHOSPHORUS 4.3 mg/dL (2.5-4.9); POTASSIUM 4.1 mmol/L (3.5-5.1)
[2017-03-28 05:50] LABS: MANUAL DIFF NO
[2017-03-28 05:51] LABS: HEMOGLOBIN 6.6 gm/dL (12.0-15.0)
[2017-03-28 07:36] LABS: HEMATOCRIT 20.8 % (37.0-47.0)
[2017-03-28 07:38] LABS: HEMOGLOBIN 6.7 gm/dL (12.0-15.0)
[2017-03-28 08:00] VITALS: BP 156/60
[2017-03-28 08:42] LABS: CHOLESTEROL 144 mg/dL (<200); HDL CHOLESTEROL 38 mg/dL (>40); LDL CHOLESTEROL 92 mg/dL (<100); TC:HDL 3.8 Ratio (Not establshd); TRIGLYCERIDE 74 mg/dL (<150); VLDL 15 mg/dL (<40)
[2017-03-28 12:00] VITALS: BP 138/68
[2017-03-28 14:52] VITALS: BP 145/78; BP 147/78
[2017-03-28 19:01] VITALS: BP 124/43
[2017-03-29] VITALS (7 sets, daily range): BP systolic 142–168; BP diastolic 63–82
[2017-03-29 04:23] LABS: ABSOLUTE NEUTROPHILS 5.9 thou/uL (1.4-8.2); BASOPHILS 0.6 % (0.0-2.0); EOSINOPHILS 3.9 % (0.0-3.0); HEMATOCRIT 23.9 % (37.0-47.0); HEMOGLOBIN 7.5 gm/dL (12.0-15.0); LYMPHOCYTES 14.7 % (24.0-44.0); MCHC 31.5 g/dL (28.0-37.0); MCV 88.8 fL (80.0-100.0); MONOCYTES 6.8 % (1.0-8.0); PLATELET COUNT 208 thou/uL (150-400); RBC 2.69 mil/uL (4.20-5.00); WBC 7.9 thou/uL (4.0-11.0)
[2017-03-29 04:31] LABS: MANUAL DIFF NO
[2017-03-29 04:36] LABS: ALBUMIN 2.9 g/dL (3.4-5.0); CALCIUM 8.7 mg/dL (8.5-10.1); CREATININE 2.6 mg/dL (0.6-1.0); PHOSPHORUS 4.7 mg/dL (2.5-4.9); POTASSIUM 4.1 mmol/L (3.5-5.1)
[2017-03-30 03:08] VITALS: BP 180/85
[2017-03-30 05:37] LABS: ABSOLUTE NEUTROPHILS 6.1 thou/uL (1.4-8.2); BASOPHILS 0.9 % (0.0-2.0); HEMATOCRIT 30.8 % (37.0-47.0); LYMPHOCYTES 14.7 % (24.0-44.0); MCH 28.3 pg (26.0-34.0); MCHC 32.6 g/dL (28.0-37.0); MCV 86.9 fL (80.0-100.0); MONOCYTES 6.4 % (1.0-8.0); PLATELET COUNT 211 thou/uL (150-400); RBC 3.55 mil/uL (4.20-5.00); RDW 18.4 % (10.5-14.5); WBC 8.2 thou/uL (4.0-11.0)
[2017-03-30 05:49] LABS: MANUAL DIFF NO
[2017-03-30 05:59] LABS: CALCIUM 8.8 mg/dL (8.5-10.1); CREATININE 2.5 mg/dL (0.6-1.0)
[2017-03-30 07:02] VITALS: BP 147/64
[2017-03-30 11:10] VITALS: BP 149/68
[2017-03-30] MEDS ORDERED: AUGMENTIN 500-1 EACH PO (13:52)
[2017-03-30] MEDS ORDERED: DEMADEX20 MG PO (13:52)
[2017-03-30] MEDS ORDERED: NORCO 10-325 T1 EACH PO (13:53)
[2017-03-30 15:25] VITALS: BP 169/79
[2017-03-30 19:06] VITALS: BP 155/66
[2017-03-31 03:39] VITALS: BP 187/72
[2017-03-31 06:17] LABS: ALBUMIN 3.1 g/dL (3.4-5.0); CALCIUM 8.8 mg/dL (8.5-10.1); CREATININE 2.4 mg/dL (0.6-1.0); PHOSPHORUS 3.7 mg/dL (2.5-4.9); POTASSIUM 3.7 mmol/L (3.5-5.1)
[2017-03-31 09:51] VITALS: BP 193/89
[2017-03-31 12:33] VITALS: BP 157/75
== END 2017-03-31 18:31 | DRG 291 ==
LOC: ER 02:41 → EROBS 06:32 → 4W 06:32
PROVIDERS: Emergency Medicine; Internal Medicine Endocrinology, Diabetes & Metabolism; Internal Medicine Nephrology; Nurse Practitioner Adult Health; Nurse Practitioner Family
PROC: 0DB68ZX Excision of Stomach, Via Natural or Artificial Opening Endoscopic, Diagnostic (ICD-10-PCS; principal; 2017-03-31)
PROC: 0DB98ZX Excision of Duodenum, Via Natural or Artificial Opening Endoscopic, Diagnostic (ICD-10-PCS; principal; 2017-03-31)
DX: I13.0 Hypertensive heart and chronic kidney disease with heart failure and stage 1 through stage 4 chronic kidney disease, or unspecified chronic kidney disease (principal); I50.33 Acute on chronic diastolic (congestive) heart failure; J18.9 Pneumonia, unspecified organism; J96.20 Acute and chronic respiratory failure, unspecified whether with hypoxia or hypercapnia; N39.0 Urinary tract infection, site not specified; E66.2 Morbid (severe) obesity with alveolar hypoventilation; N18.4 Chronic kidney disease, stage 4 (severe); Z68.44 Body mass index [BMI] 60.0-69.9, adult; G35 Multiple sclerosis; E11.22 Type 2 diabetes mellitus with diabetic chronic kidney disease; K74.60 Unspecified cirrhosis of liver; J44.9 Chronic obstructive pulmonary disease, unspecified; F41.9 Anxiety disorder, unspecified; M10.9 Gout, unspecified; D64.9 Anemia, unspecified; E78.5 Hyperlipidemia, unspecified; K29.90 Gastroduodenitis, unspecified, without bleeding; Z66 Do not resuscitate; M79.605 Pain in left leg; I27.2 Other secondary pulmonary hypertension; Z87.891 Personal history of nicotine dependence; Z90.710 Acquired absence of both cervix and uterus; Z90.49 Acquired absence of other specified parts of digestive tract; Z99.81 Dependence on supplemental oxygen; Z79.4 Long term (current) use of insulin; Z79.82 Long term (current) use of aspirin; Z79.899 Other long term (current) drug therapy; Z82.49 Family history of ischemic heart disease and other diseases of the circulatory system
CPT/HCPCS: 10045; 70005

== ENCOUNTER 2017-07-28 16:30 | Emergency (ER) | payer OTHER ==
[~2017-07-28] VITALS: Ht 152.4 cm; Wt 120.2 kg
[~2017-07-28 16:30] MED LIST changes: +AUGMENTIN 500-1 EACH PO; +DEMADEX20 MG PO; +GENTAMICIN 0.15 CR TOP; +LANTUS SUBQ; +MACROBID 100 M100 M2 PO; +MELATIN3 MG PO; +SYSTANE 0.3-0.1 EACH OP; +VITAMINC500 PO
[2017-07-28 16:58] LABS: URINE BILIRUBIN NEGATIVE (Negative); URINE BLOOD TRACE (Negative); URINE COLOR YELLOW; URINE GLUCOSE-RANDOM* NEGATIVE (Negative); URINE KETONES NEGATIVE (Negative); URINE NITRITE POSITIVE (Negative); URINE PROTEIN (DIPSTICK) NEGATIVE (Negative); URINE SPECIFIC GRAVITY <= 1.005 (1.003-1.035); URINE UROBILINOGEN 0.2 E.U./dl (0.2-1.0)
[2017-07-28 17:24] LABS: BACTERIA >30 Many /HPF (None Seen); CRYSTALS None Seen /LPF (None Seen); SQUAMOUS None Seen /LPF (0-3); URINE WBC >25 Many /HPF (0-5); WBC CLUMPS Moderate (None Seen)
[2017-07-28 17:25] LABS: CASTS None Seen /LPF (None Seen); URINE RBC 0-2 Rare /HPF (0-2)
[2017-07-28] MEDS ORDERED: KEFLEX500 MG PO (17:45)
== END 2017-07-28 18:43 | disposition home or self-care (01) ==
LOC: ER 16:30
PROVIDERS: Physician Assistant
DX: T83.038A Leakage of other urinary catheter, initial encounter (principal); N39.0 Urinary tract infection, site not specified; G47.30 Sleep apnea, unspecified; K74.60 Unspecified cirrhosis of liver; J44.9 Chronic obstructive pulmonary disease, unspecified; F41.9 Anxiety disorder, unspecified; M10.9 Gout, unspecified; I13.0 Hypertensive heart and chronic kidney disease with heart failure and stage 1 through stage 4 chronic kidney disease, or unspecified chronic kidney disease; E11.22 Type 2 diabetes mellitus with diabetic chronic kidney disease; N18.9 Chronic kidney disease, unspecified; I50.9 Heart failure, unspecified; E66.9 Obesity, unspecified; Z79.4 Long term (current) use of insulin; Z86.2 Personal history of diseases of the blood and blood-forming organs and certain disorders involving the immune mechanism; Z87.891 Personal history of nicotine dependence; Z68.43 Body mass index [BMI] 50.0-59.9, adult; Y84.9 Medical procedure, unspecified as the cause of abnormal reaction of the patient, or of later complication, without mention of misadventure at the time of the procedure; Y92.89 Other specified places as the place of occurrence of the external cause

== ENCOUNTER → 2017-11-25 | Outpatient (CLI) | payer OTHER ==
[~2017-11-25] MED LIST changes: +ACETAMINOPHEN-1 EAC1 PO; +AMLODIPINE BESY10 MG PO; +AMLODIPINE BESYL5 M1 PO; +CARDURA4 MG PO; +CLARITIN10 MG PO; +COZAAR 50 MG TA50 M2 PO; +HUMALOG100 UNIT/1 SUBQ; +HYDROCODON-ACE1 EAC7 PO; +IMDUR 60 MG TAB60 M1 PO; +IPRAT-ALBUT 0.5-3 ML INH; +KEFLEX500 MG PO; +NEURONTIN600 MG PO; +OXYBUTYNIN 5 MG5 M2 PO; +PREDNISONE 10 M10 MG PO; +PROCRIT20000 UNIT SUBQ
--- NOTE | ~2017-11-25 | 2DMMODE ---
[facility] [place] [address] 2 D/M-MODE ECHOCARDIOGRAM Name: RADHA ALEMAN Room #: REG CL [facility]#: [id number] Admission: 11/25/17 Attend Phys: Aniceto Omalley Discharge: Date of : 50 Date of Service: 11/25/17 1340 Report #: [id number] THIS REPORT FOR: //name// APPROVED REPORT Study performed: 11/25/2017 12:46:18 EXAM: Comprehensive 2D, Doppler, and color-flow Echocardiogram Patient Location: Out-Patient Status: routine BSA: 2.17 HR: 50 bpm Rhythm: NSR Other Information Study Quality: Adequate Technically limited study due to morbid obesity. Exam done with patient in wheelchair. Indications Cardiomyopathy. Hx:CHF, DM, PHTN 2D Dimensions RVDd: 41.53 mm LVEF(%): 55.91 (>50%) IVSd: 13.05 (7-11mm) LVOT Diam: 20.57 (18-24mm) LVDd: 46.78 mm PWd: 12.80 (7-11mm) LVDs: 33.16 (25-40mm) Aortic Root: 31.45 mm Malik's LVEF: 55.91 % Volumes Left Atrial Volume (Systole) Single Plane 4CH: 72.81 mL Single Plane 2CH: 84.67 mL LA ESV Index: 38.00 mL/m2 Aortic Valve AoV Peak Urbano.: 2.19 m/s AO Peak Gr.: 19.24 mmHg LVOT Max P.07 mmHg AO Mean Gr.: 9.84 mmHg AO V2 Mean: 1.49 m/s LVOT Max V: 1.12 m/s AO V2 VTI: 52.35 cm CHACE Vmax: 1.70 cm2 [facility] [place] [address] 2 D/M-MODE ECHOCARDIOGRAM Name: RADHA ALEMAN Room #: REG Noe#: [id number] Admission: 11/25/17 Attend Phys: Aniceto Omalley Discharge: Date of : 50 Date of Service: 11/25/17 1340 Report #: [id number] Mitral Valve E/A Ratio: 1.3 MV Decel. Time: 164.68 ms MV E Max Urbano.: 0.99 m/s MV A Urbano.: 0.74 m/s MV PHT: 47.76 ms IVRT: 73.82 ms Pulmonary Valve PV Peak Urbano.: 0.91 m/s PV Peak Gr.: 3.29 mmHg Pulmonary Vein P Vein S: 0.47 m/s P Vein A: 0.30 m/s P Vein D: 0.38 m/s P Vein A Dur.: 120.0 msec P Vein S/D Ratio: 1.24 Tricuspid Valve TR Peak Urbano.: 3.70 m/s RAP Estimate: 10.00 mmHg TR Peak Gr.: 54.63 mmHg PA Pressure: 65.00 mmHg Left Ventricle The left ventricle is normal size. Mild concentric left ventricular hypertrophy. Left ventricular systolic function is normal. LVEF is 55-60%. Moderate diastolic dysfunction is present (pseudonormal filling). Right Ventricle Right ventricle is not well visualized but appears grossly normal. Atria Left atrium is mildly dilated. Right atrium is at the upper limits of normal. Aortic Valve The Aortic valve is mildly sclerotic. No aortic regurgitation is present. No hemodynamically significant valvular aortic stenosis. Mitral Valve The mitral valve is normal in structure. Mild mitral regurgitation. Tricuspid Valve [address] [address] 2 D/M-MODE ECHOCARDIOGRAM Name: RADHA ALEMAN [id number] Admission: 11/25/17 Attend Phys: Aniceto Omalley Discharge: Date of : 50 Date of Service: 11/25/17 1340 Report #: [id number] The tricuspid valve is normal in structure. Mild tricuspid regurgitation. Moderate to severe pulmonary hypertension. Estimated PAP is 65-70mmHg. Pulmonic Valve The pulmonary valve is normal in structure. Trace pulmonic regurgitation. Great Vessels The aortic root is normal in size. Ascending aorta is not well visualized. IVC is dilated and collapses >50% with inspiration. Pericardium No significant pericardial effusion <Conclusion> The left ventricle is normal size. LVEF is 55-60%. Right ventricle is not well visualized but appears grossly normal. Left atrium is mildly dilated. The Aortic valve is mildly sclerotic. No aortic regurgitation is present. No hemodynamically significant valvular aortic stenosis. The mitral valve is normal in structure. Mild mitral regurgitation. The tricuspid valve is normal in structure. Mild tricuspid regurgitation. Moderate to severe pulmonary hypertension. Estimated PAP is 65-70mmHg. The pulmonary valve is normal in structure. Trace pulmonic regurgitation. No significant pericardial effusion <ELECTRONICALLY SIGNED> By: Aniceto Moses MD 11/25/17 1340 1340 1340 Aniceto Moses MD /INF
== END ==
LOC: CV 10:14
DX: I42.9 Cardiomyopathy, unspecified (principal); I11.0 Hypertensive heart disease with heart failure; I50.9 Heart failure, unspecified; E11.9 Type 2 diabetes mellitus without complications; J44.9 Chronic obstructive pulmonary disease, unspecified

== ENCOUNTER 2018-04-19 00:37 | Inpatient (IN) | payer OTHER ==
[~2018-04-19] VITALS: Ht 165.1 cm; Wt 127.9 kg
[2018-04-19] VITALS (9 sets, daily range): BP systolic 151–201; BP diastolic 72–91
--- NOTE | ~2018-04-19 | EKG ---
[address] [place] [address] ELECTROCARDIOGRAM REPORT Name: RADHA ALEMAN Room #: 211-P [facility] IN M.R.#: [id number] Admission: 04/19/18 Attend Phys: Irving Goldberg MD Discharge: Date of : 50 Report #: [id number] THIS REPORT FOR: //name// [facility] ED Test Date: 2018-04-19 Test Time: 00:40:40 Pat Name: RADHA ALEMAN Department: Room: Gender: F Research & Analytics Manager: 8 : 1950 Requested By: Jordan Valdes Order Number: [id number] MD: Camden Rudolph Measurements Intervals [place] Rate: 59 P: VA: QRS: -57 QRSD: 144 T: 80 QT: 470 QTc: 466 Interpretive Statements Junctional rhythm RBBB and LAFB Compared to ECG 03/27/2017 10:11:57 Junctional rhythm now present Electronically Signed On 04-20-2018 8:34:44 CDT by Camden Rudolph [email or web address] <ELECTRONICALLY SIGNED> By: Camden Rudolph MD, [facility] 04/20/18 0834 0040 Camden Rudolph MD, FACC /EPI
--- NOTE | ~2018-04-19 | H ---
[facility] [place] [address] HISTORY AND PHYSICAL Name: RADHA ALEMAN Cale Room #: 211-P ADM IN .R.#: [id number] Admission: 04/19/18 Attend Phys: Irving Goldberg MD Discharge: Date of : 50 Report #: [id number] THIS REPORT FOR: //name// CC: Bello Torres MD DATE OF SERVICE: 04/19/2018 CHIEF COMPLAINT: Shortness of breath and chest tightness. HISTORY OF PRESENT ILLNESS: The patient is a 67-year-old female who presents to the Emergency Department with complaints of chest tightness and shortness of breath that began 20 minutes prior to arrival. Dr. Cabrales worked her up quite extensively and then called me. Her workup findings suggested healthcare-acquired pneumonia and possible COPD exacerbation. Chest x-ray also suggested possibility of infiltrates with pulmonary edema and cardiomegaly. The patient is admitted for further evaluation and treatment. PAST MEDICAL HISTORY: Includes multiple sclerosis, obstructive sleep apnea, hypertension, obesity, diabetes mellitus, cirrhosis, etiology not described; COPD, congestive heart failure, chronic kidney disease, chronic anxiety, gout, anemia, urogenital implants/suprapubic catheter, sacral and heel ulcers, obesity and type 2 diabetes mellitus. MEDICATIONS: At the time of admission include torsemide 20 mg tablets 2 tablets daily, hydralazine 50 mg tablets one and a half tablet by mouth 3 times daily, ferrous sulfate 325 mg by mouth twice daily, allopurinol 100 mg by mouth daily for gout, folic acid 1 mg by mouth daily, MiraLax 17 grams by mouth daily in a glass of water, vitamin D3 at 2000 units by mouth daily, gabapentin 600 mg by mouth 3 times daily, carvedilol 6.25 mg by mouth twice daily, Lantus 20 units subQ daily, oxybutynin 5 mg by mouth twice daily, melatonin 3 mg by mouth nightly, loratadine 10 mg by mouth daily, losartan 50 mg by mouth daily, Tylenol No. 3 at 300 mg every 4 hours p.r.n. pain, Humalog 3 units before meals, aspirin 81 mg by mouth daily chewable, escitalopram 20 mg by mouth daily, famotidine 10 mg by mouth twice daily, Tylenol on a p.r.n. basis, gentamicin sulfate 0.1% cream apply topically daily (I am not sure of the diagnosis for this), and vitamin C 500 mg by mouth twice daily. ALLERGIES: She has no known drug allergies. SOCIAL HISTORY: She lives in a intermediate. She smoked in the past. She drank to excess in the past, but does not have any current vices. [address] [address] HISTORY AND PHYSICAL Name: RADHA ALEMAN Room #: 211-P [facility] IN M.R.#: [id number] Admission: 04/19/18 Attend Phys: Irving Goldberg MD Discharge: Date of : 50 Report #: [id number] FAMILY HISTORY: Unavailable. REVIEW OF SYSTEMS: The patient reports that this sort of sudden onset of shortness of breath problem has happened to her in the past. Also note that in reviewing her record, she has significant pulmonary artery hypertension with the range of pulmonary artery blood pressure greater than 60. She also has known diastolic dysfunction. PHYSICAL EXAMINATION: VITAL SIGNS: In the Emergency Room showed temperature of 36.9 degrees centigrade, pulse of 67, blood pressure of 198/91, respirations of 28 with oxygen at 4 liters per nasal cannula and an oxygen saturation of 91%. She usually wears oxygen at 3 liters per nasal cannula chronically. Her reported weight at the time of admission is 289.2 pounds. GENERAL: This is an obese, older white female with mild respiratory distress. HEENT: Extraocular muscles are intact. Oropharynx is slightly dry and pink. No lesions, no exudates. NECK: Without adenopathy, thyromegaly or mass. Elevated JVD is noted to the angle of the jaw. CHEST: Lungs are slightly coarse throughout with wheezes noted bilaterally. No respiratory distress, no accessory muscles being used. ABDOMEN: Soft. Bowel sounds are present. No visceromegaly or masses. CARDIAC: Rhythm is regular, but distant. EXTREMITIES: Bilateral lower extremity 1/4 pitting below the knees and generalized weakness. MENTAL STATUS: The patient is alert. She is oriented to person, place and time and is quite inquisitive. She is able to think abstractly without difficulty. NEUROLOGIC: She has significant motor deficits in the right lower extremity and to a lesser degree the right upper extremity. LABORATORY DATA: EKG in the Emergency Room showed junctional rhythm with right bundle branch block and left anterior fascicular block and a rate of 59 beats per minute. The CBC showed a white blood cell count was elevated at 14,100 with a hemoglobin of 10.2, hematocrit 31.4, platelet count of 187,000, fairly normal red blood cell indices, although the RDW was slightly elevated at 18.4. The differential showed 83% segmented neutrophils, 8.2% lymphocytes, 3.9% monocytes, 4.0% eosinophils, 0.9% basophils and the absolute neutrophil count was 11,700. Basic metabolic panel showed a sodium of 135, potassium 4.3, chloride of 101, bicarbonate 27, BUN of 83, and creatinine 3.3. The anion gap is 7. The glucose is 211. The calcium is 8.8 and the estimated GFR was 17. Troponin in the Emergency Room was less than 0.06. The NT-proBNP that was done in the Emergency Room was 2753. Lactic acid venous was 1.0. The procalcitonin was 0.39, also normal. The official reading on the chest x-ray from the Emergency Room, which was compared to one from 03/2017 showed pulmonary edema and mention of interstitial alveolar infiltrates bilaterally without any pleural effusions. [facility] [address] [place] [address] HISTORY AND PHYSICAL Name: RADHA ALEMAN Room #: [facility] IN ..#: [id number] Admission: 04/19/18 Attend Phys: Irving Goldberg MD Discharge: Date of : 50 Report #: [id number] ASSESSMENT: 1. Community-acquired pneumonia. 2. Pulmonary edema. 3. History of severe pulmonary hypertension, diastolic dysfunction and diastolic congestive heart failure (chronic). 4. Multiple sclerosis with right hemiparesis. 5. Type 2 diabetes mellitus. 6. Possible history of cirrhosis, suspect nonalcoholic steatohepatitis. 7. Obstructive sleep apnea history. 8. History of gout. 9. History of chronic kidney disease -- review of previous lab studies shows that her creatinine was 2.6 as of last May. It was 3.1 February of the year before, was 1.7 as recently as 12/2016 and generally in the past 2 years has been gradually inching upward. Today is the highest creatinine reading of those available in the hospital computer. PLAN: Cultures have been obtained, IV antibiotics started, aggressive nebulizer treatments and diet. I did speak with this patient at length about her diet. She has numerous complaints about the food at the intermediate where she resides and her lack of control over diet choices there. I suggested to her that she be weighed daily and that the information be used to help manage degree of fluid overload so that risk of being hospitalized for acute congestive heart failure could be minimized. I will discuss her case further with Dr. Torres when he is back. We will use sequential compression stockings and Lovenox for DVT prophylaxis. <ELECTRONICALLY SIGNED> By: Irving oGldberg MD 04/22/181414 25 54 Irving Goldberg MD /nt
--- NOTE | ~2018-04-19 | HC ---
[facility] [address] [place] [address] CONSULTATION Name: RADHA ALEMAN Room #: 211-P [facility] IN M.R.#: [id number] Admission: 04/19/18 Attend Phys: Irving Goldberg MD Discharge: Date of : 50 Report #: [id number] THIS REPORT FOR: //name// CC: Irving Torres REASON FOR PRESENTATION: Shortness of breath. HISTORY OF PRESENT ILLNESS: The patient has chronic kidney disease, who follows with me in the clinic. She has longstanding hypertension, diabetes mellitus. She is also known to have multiple sclerosis. She resides in the [facility]. She has done relatively well in the last year; however, she had issues with her care at the [facility]. Her baseline creatinine runs anywhere from 2-2.5. We had been able to manage her volume with some diuretics; however, combined diuretics regimen had some times resulted in worsening of her kidney function. On other occasions she had significant hyperkalemia. She presented yesterday complaining of sudden onset shortness of breath. This was associated with a sudden surge in her blood pressure. Chest x-ray was suggestive of pulmonary edema. She was admitted for further evaluation and management. No fever or chills. She has a chronic Pace catheter related to her neurogenic bladder and multiple sclerosis. She is being treated currently as a case of healthcare-associated pneumonia with pulmonary edema. It is not clear to me why did her blood pressure have a sudden surge. Most of the time when she is seeing me in the clinic, her blood pressure is under well control. I am being asked to manage her chronic kidney disease as she had an elevated creatinine above her baseline when she presented. PAST MEDICAL HISTORY: 1. Chronic kidney disease with a creatinine baseline of around 2-2.5. 2. Multiple sclerosis. 3. Obstructive sleep apnea. 4. Diabetes mellitus. 5. Hypertension. 6. Gout. 7. Chronic suprapubic catheter. 8. Chronic sacral and heel ulcers. MEDICATIONS: 1. Torsemide 20 mg and she is supposed to take 2 tablets daily. 2. Hydralazine 50 three times a day. 3. Ferrous sulfate. 4. MiraLax. 5. Allopurinol. 6. Gabapentin. 7. Carvedilol twice a day. 8. Lantus 20 units. 9. Melatonin. [address] [address] CONSULTATION Name: RADHA ALEMAN Room #: 211-P [facility] IN .R.#: [id number] Admission: 04/19/18 Attend Phys: Irving Goldberg MD Discharge: Date of : 50 Report #: [id number] 10. Losartan. 11. Humalog. 12. Aspirin. 13. Tylenol. ALLERGIES: None. SOCIAL HISTORY: She resides in the [facility]. No drug or alcohol abuse. FAMILY HISTORY: Very significant diabetes and hypertension. REVIEW OF SYSTEMS: GENERAL: Occasional weakness. She utilizes an electric wheelchair to move around given her multiple sclerosis. CARDIOVASCULAR: As per the history of present illness. No palpitation, no syncope. PULMONARY: As per the history of present illness. GASTROINTESTINAL: No nausea or vomiting. GENITOURINARY: Chronic suprapubic catheter. PHYSICAL EXAMINATION: GENERAL: She was alert, oriented. VITAL SIGNS: Blood pressure was 198/91, respiratory rate was 21, O2 sat was 91 on 4 liters when evaluated. HEAD AND NECK: No jugular venous distention. CHEST: Decreased air entry bilaterally with crackles. CARDIOVASCULAR: Regular with no rub. ABDOMEN: Soft, nontender. LOWER EXTREMITIES: +1 edema. She has suprapubic catheter. She has chronic heel ulcers. LABORATORY DATA: Reviewed. CBC showed a white blood cell count of 14,000, hemoglobin 10. Sodium was 135, potassium 4.3, chloride 101, bicarbonate 27, BUN 30, creatinine 3.3. ASSESSMENT, IMPRESSION AND PLAN: 1. Pulmonary edema. 2. Severe pulmonary hypertension. 3. Diastolic heart failure. 4. Multiple sclerosis. 5. Diabetes mellitus. 6. Hypertension. 7. Obstructive sleep apnea. 8. I am puzzled as to why she had a sudden surge in her blood pressure and this is the likely contribution to be pulmonary edema. Unfortunately, she resides in a nursing facility and she is not able to control her salt or fluid restriction. [facility] [address] [place] [address] CONSULTATION Name: RADHA ALEMAN Room #: 211-P ADM IN M.R.#: [id number] Admission: 04/19/18 Attend Phys: Irving Goldberg MD Discharge: Date of : 50 Report #: [id number] As of this moment, we will send appropriate laboratory investigations related to her symptoms. She is currently being treated as a pneumonitis. Pulmonary has been consulted. 9. I will switch to IV diuretic regimen. 10. Blood pressure control including her medication is losartan and carvedilol and those should be resumed. 11. Blood sugar control. 12. Daily evaluate. 13. Continue to address her other comorbid conditions. As usual, it is my pleasure to evaluate the patient. Should you have any question, please do not hesitate to call me. <ELECTRONICALLY SIGNED> By: Josep Monsalve MD 04/21/18 0734 1250 1631 Josep Monsalve MD /nt
--- NOTE | ~2018-04-19 | EKG ---
[address] [place] [address] ELECTROCARDIOGRAM REPORT Name: RADHA ALEMAN Room #: 211- ADM IN M.R.#: [id number] Admission: 04/19/18 Attend Phys: Irving Goldberg MD Discharge: Date of : 50 Report #: [id number] THIS REPORT FOR: //name// [facility] Test Date: 2018-04-20 Test Time: 06:44:32 Pat Name: RADHA ALEMAN Department: Room: 211 P Gender: F Monument Installer: GR : 1950 Requested By: Irving Goldberg Order Number: [id number] MD: Camden Rudolph Measurements Intervals [place] Rate: 65 P: 64 [place]: 200 QRS: -49 QRSD: 151 T: 112 QT: 487 QTc: 507 Interpretive Statements Sinus rhythm RBBB and LAFB Nonspecific ST and T wave abnormality Compared to ECG 03/27/2017 10:11:57 Sinus rhythm has replaced junctional rhythm Electronically Signed On 04-20-2018 8:46:52 CDT by Camden Rudolph [email or web address] <ELECTRONICALLY SIGNED> By: Camden Rudolph MD, [facility] 04/20/18 0846 Camden Rudolph MD, [facility] /EPI
[~2018-04-19 00:37] MED LIST changes: -ACETAMINOPHEN-1 EAC1 PO; -AMLODIPINE BESY10 MG PO; -AMLODIPINE BESYL5 M1 PO; -CARDURA4 MG PO; -CLARITIN10 MG PO; -COZAAR 50 MG TA50 M2 PO; -HUMALOG100 UNIT/1 SUBQ; -HYDROCODON-ACE1 EAC7 PO; -IMDUR 60 MG TAB60 M1 PO; -IPRAT-ALBUT 0.5-3 ML INH; -NEURONTIN600 MG PO; -OXYBUTYNIN 5 MG5 M2 PO; -PREDNISONE 10 M10 MG PO; -PROCRIT20000 UNIT SUBQ
[2018-04-19 01:34] LABS: ABSOLUTE NEUTROPHILS 11.7 thou/uL (1.4-8.2); BASOPHILS 0.9 % (0.0-2.0); HEMATOCRIT 31.4 % (37.0-47.0); HEMOGLOBIN 10.2 gm/dL (12.0-15.0); LYMPHOCYTES 8.2 % (24.0-44.0); MCH 27.3 pg (26.0-34.0); MCHC 32.6 g/dL (28.0-37.0); MCV 83.9 fL (80.0-100.0); MONOCYTES 3.9 % (1.0-8.0); PLATELET COUNT 187 thou/uL (150-400); RBC 3.74 mil/uL (4.20-5.00); RDW 18.4 % (10.5-14.5); WBC 14.1 thou/uL (4.0-11.0)
[2018-04-19 01:39] LABS: ANION GAP 7 mmol/L (7-16); BUN 83 mg/dL (7-18); CALCIUM 8.8 mg/dL (8.5-10.1); CHLORIDE 101 mmol/L (98-107); CO2 27 mmol/L (21-32); CREATININE 3.3 mg/dL (0.6-1.0); GLUCOSE 211 mg/dL (74-106); POTASSIUM 4.3 mmol/L (3.5-5.1); SODIUM 135 mmol/L (136-145)
[2018-04-19 01:48] LABS: TROPONIN-I <0.06 ng/mL (<0.06)
[2018-04-19] MEDS ORDERED: NEURONTIN600 MG PO (04:21)
[2018-04-19] MEDS ORDERED: OXYBUTYNIN 5 MG5 M2 PO (04:22)
[2018-04-19] MEDS ORDERED: CLARITIN10 MG PO (04:23)
[2018-04-19] MEDS ORDERED: MELATONIN3 MG PO (04:23)
[2018-04-19] MEDS ORDERED: COZAAR 50 MG TA50 M2 PO (04:24)
[2018-04-19] MEDS ORDERED: ACETAMINOPHEN-1 EAC1 PO (04:26)
[2018-04-19] MEDS ORDERED: HUMALOG100 UNIT/1 SUBQ (04:29)
[2018-04-20 00:59] VITALS: BP 188/74
[2018-04-20 03:13] LABS: HEMATOCRIT 27.4 % (37.0-47.0); MCH 27.9 pg (26.0-34.0); MCHC 32.9 g/dL (28.0-37.0); MCV 84.7 fL (80.0-100.0); RBC 3.23 mil/uL (4.20-5.00)
[2018-04-20 03:25] LABS: CALCIUM 8.6 mg/dL (8.5-10.1); CREATININE 3.1 mg/dL (0.6-1.0); POTASSIUM 4.4 mmol/L (3.5-5.1)
[2018-04-20 04:50] VITALS: BP 195/85
[2018-04-20 07:05] VITALS: BP 207/82
[2018-04-20 11:10] VITALS: BP 183/75
[2018-04-20 15:00] VITALS: BP 151/63
[2018-04-20 19:07] VITALS: BP 167/76
[2018-04-21 04:30] VITALS: BP 180/78
[2018-04-21 04:32] LABS: ALBUMIN 3.2 g/dL (3.4-5.0); CALCIUM 8.8 mg/dL (8.5-10.1); CREATININE 3.1 mg/dL (0.6-1.0); PHOSPHORUS 4.3 mg/dL (2.5-4.9); POTASSIUM 4.6 mmol/L (3.5-5.1)
[2018-04-21 07:20] VITALS: BP 178/81
[2018-04-21 11:00] VITALS: BP 177/77
[2018-04-21 15:05] VITALS: BP 197/94
[2018-04-21 15:25] VITALS: BP 105/72
[2018-04-21 19:25] VITALS: BP 180/84
[2018-04-22 00:17] VITALS: BP 181/81
[2018-04-22 03:49] VITALS: BP 177/80
[2018-04-22 03:52] LABS: ALBUMIN 3.1 g/dL (3.4-5.0); CALCIUM 8.4 mg/dL (8.5-10.1); CREATININE 3.1 mg/dL (0.6-1.0); PHOSPHORUS 4.3 mg/dL (2.5-4.9); POTASSIUM 4.7 mmol/L (3.5-5.1)
[2018-04-22 07:10] VITALS: BP 183/85
[2018-04-22 11:30] VITALS: BP 179/83
[2018-04-22 15:30] VITALS: BP 158/84
[2018-04-22 19:45] VITALS: BP 144/56
[2018-04-23 03:55] LABS: ALBUMIN 3.2 g/dL (3.4-5.0); CALCIUM 8.5 mg/dL (8.5-10.1); CREATININE 3.1 mg/dL (0.6-1.0); PHOSPHORUS 4.2 mg/dL (2.5-4.9); POTASSIUM 4.2 mmol/L (3.5-5.1)
[2018-04-23 05:06] VITALS: BP 164/65
[2018-04-23 07:33] VITALS: BP 156/68
[2018-04-23 11:05] VITALS: BP 167/75
[2018-04-23 15:35] VITALS: BP 163/66
[2018-04-23 19:58] VITALS: BP 152/69
[2018-04-24 05:19] VITALS: BP 123/62
[2018-04-24 07:05] VITALS: BP 147/58
[2018-04-24 11:05] VITALS: BP 146/66
[2018-04-24 15:30] VITALS: BP 126/64
[2018-04-24 19:58] VITALS: BP 124/56
[2018-04-25 04:34] LABS: ALBUMIN 2.8 g/dL (3.4-5.0); CALCIUM 8.3 mg/dL (8.5-10.1); CREATININE 3.1 mg/dL (0.6-1.0); POTASSIUM 4.5 mmol/L (3.5-5.1)
[2018-04-25 04:50] VITALS: BP 132/62
[2018-04-25 07:05] VITALS: BP 135/70
[2018-04-25] MEDS ORDERED: IPRAT-ALBUT 0.5-3 ML INH (09:38)
[2018-04-25] MEDS ORDERED: LEVAQUIN 250 M250 MG PO (09:38)
[2018-04-25] MEDS ORDERED: IMDUR 60 MG TAB60 M1 PO (09:39)
[2018-04-25] MEDS ORDERED: AMLODIPINE BESY10 MG PO (09:40)
[2018-04-25] MEDS ORDERED: NEURONTIN 300300 M1 PO (09:41)
[2018-04-25] MEDS ORDERED: DEMADEX 2020 MG/1 TA PO (09:41)
[2018-04-25] MEDS ORDERED: PREDNISONE 10 M10 MG PO (09:45)
[2018-04-25 11:10] VITALS: BP 124/59
== END 2018-04-25 15:00 | DRG 291 ==
LOC: ER 00:37 → EROBS 02:35 → 2N 02:35
PROVIDERS: Emergency Medicine; Hospitalist; Internal Medicine; Internal Medicine Nephrology
DX: I13.0 Hypertensive heart and chronic kidney disease with heart failure and stage 1 through stage 4 chronic kidney disease, or unspecified chronic kidney disease (principal); J18.9 Pneumonia, unspecified organism; J96.21 Acute and chronic respiratory failure with hypoxia; I50.33 Acute on chronic diastolic (congestive) heart failure; I26.99 Other pulmonary embolism without acute cor pulmonale; Z68.42 Body mass index [BMI] 45.0-49.9, adult; J44.0 Chronic obstructive pulmonary disease with (acute) lower respiratory infection; J44.1 Chronic obstructive pulmonary disease with (acute) exacerbation; G81.91 Hemiplegia, unspecified affecting right dominant side; N17.9 Acute kidney failure, unspecified; N18.4 Chronic kidney disease, stage 4 (severe); R65.10 Systemic inflammatory response syndrome (SIRS) of non-infectious origin without acute organ dysfunction; G35 Multiple sclerosis; I27.20 Pulmonary hypertension, unspecified; E66.01 Morbid (severe) obesity due to excess calories; E11.22 Type 2 diabetes mellitus with diabetic chronic kidney disease; N31.9 Neuromuscular dysfunction of bladder, unspecified; Y95 Nosocomial condition; D63.1 Anemia in chronic kidney disease; G47.33 Obstructive sleep apnea (adult) (pediatric); K74.60 Unspecified cirrhosis of liver; F41.9 Anxiety disorder, unspecified; M10.9 Gout, unspecified; Z90.49 Acquired absence of other specified parts of digestive tract; Z90.710 Acquired absence of both cervix and uterus; Z87.891 Personal history of nicotine dependence; Z79.4 Long term (current) use of insulin; Z79.82 Long term (current) use of aspirin; Z79.899 Other long term (current) drug therapy; Z83.3 Family history of diabetes mellitus; Z80.0 Family history of malignant neoplasm of digestive organs
CPT/HCPCS: 10081

== ENCOUNTER 2018-05-05 18:15 | Inpatient (IN) | payer OTHER ==
[~2018-05-05] VITALS: Ht 152.4 cm; Wt 124.3 kg
--- NOTE | ~2018-05-05 | HC ---
[facility] [place] [address] CONSULTATION Name: RADHA ALEMAN Room #: 457-P [facility] IN M.R.#: [id number] Admission: 05/05/18 Attend Phys: Irving Goldberg MD Discharge: Date of : 50 Report #: [id number] THIS REPORT FOR: //name// CC: Irving Torres REASON FOR CONSULTATION: Chronic kidney disease. REASON FOR PRESENTATION: Abnormal labs. HISTORY OF PRESENT ILLNESS: This is a very well-known patient to me. See my consultation from 04/19/2018. She has a long-standing diabetes mellitus, hypertension, chronic kidney disease with multiple sclerosis, suprapubic catheter and chronic lower extremity edema. Baseline creatinine is anywhere from 2 to 2.5 with recent worsening of her creatinine all the way up to 3. She was recently discharged after being treated for pulmonary edema and elevated blood pressure. She was discharged on torsemide. Creatinine was stable. However, her BUN was above her baseline and she was sent for further evaluation and management. She continues to have issues with her blood pressure. She also continues to have some issues with lower extremity edema. Unfortunately, dietary habits are not being followed with her being in a nursing facility, specifically salt and fluid restriction has not been followed in the past and the patient has had numerous admissions with sudden surges of her blood pressures, pulmonary edema. I am being consulted to manage her chronic kidney disease. PAST MEDICAL HISTORY: 1. Chronic sacral and heel ulcers. 2. Suprapubic catheter. 3. Hypertension. 4. Diabetes mellitus. 5. Obstructive sleep apnea. 6. Multiple sclerosis. 7. Wheelchair bound. 8. Chronic kidney disease. MEDICATIONS: 1. Torsemide. 2. Allopurinol. 3. Carvedilol. 4. Lantus. 5. Hydralazine. 6. Losartan. 7. Humalog. 8. Aspirin. 9. Tylenol. [facility] [address] [place] [address] CONSULTATION Name: RADHA ALEMAN Room #: 457-P [facility] IN [facility]#: [id number] Admission: 05/05/18 Attend Phys: Irving Goldberg MD Discharge: Date of : 50 Report #: [id number] SOCIAL HISTORY: She resides in the [facility]. No drug or alcohol abuse. FAMILY HISTORY: Significant for diabetes mellitus and hypertension. ALLERGIES: None. REVIEW OF SYSTEMS: GENERAL: Wheelchair bound. CARDIOVASCULAR: Occasional shortness of breath and lower extremity edema. PULMONARY: No cough, however, she did have some issues with her shortness of breath. GASTROINTESTINAL: No nausea or vomiting. GENITOURINARY: Chronic suprapubic catheter. PHYSICAL EXAMINATION: VITAL SIGNS: Blood pressure is 160/66. HEAD AND NECK: No jugular venous distention. CHEST: Decreased air entry bilaterally, with crackles. CARDIOVASCULAR: Regular, with no rub. ABDOMEN: Soft, nontender. LOWER EXTREMITIES: +3 edema with what seems to be chronic venous stasis changes. LABORATORY DATA: Laboratory values reviewed. White blood cell count 6.9, hemoglobin 8.0 and platelet 109,000. Sodium 142, potassium 4.2, BUN 95 and creatinine 3. IMAGING: Chest x-ray reviewed, mild pulmonary venous congestions. ASSESSMENT, IMPRESSION AND PLAN: 1. Chronic kidney disease. 2. Anemia. 3. Diabetes mellitus. 4. Hypertension. 5. Mild pulmonary edema. 6. Chronic venous stasis changes and chronic lymphedema. 7. Chronic suprapubic catheter. 8. From the renal perspective, she is at her baseline. 9. Blood pressure is mildly elevated and I will resume her Cozaar. 10. Continue with once daily torsemide. 11. Continue with other blood pressure medications. [facility] [address] [place] [address] CONSULTATION Name: RADHA ALEMAN Room #: 457-P [facility] IN .R.#: [id number] Admission: 05/05/18 Attend Phys: Irving Goldberg MD Discharge: Date of : 50 Report #: [id number] 12. Blood sugar control. 13. Receiving iron and I will add erythropoietin. By: 1000 1320 Josep Monsalve MD /nt
--- NOTE | ~2018-05-05 | H ---
[facility] [place] [address] HISTORY AND PHYSICAL Name: RADHA ALEMAN Room #: 457-P ADM IN M.R.#: [id number] Admission: 05/05/18 Attend Phys: Irving Goldberg MD Discharge: Date of : 50 Report #: [id number] THIS REPORT FOR: //name// CC: Irving Torres MD DATE OF SERVICE: 05/06/2018 CHIEF COMPLAINT: "I just don't feel well." HISTORY OF PRESENT ILLNESS: The patient is a 67-year-old, soon to be 68 female who is a resident of a retirement who explained that she had not been feeling well for the last couple of days. She was seen by Dr. Torres at the retirement and had some labs that showed markedly elevated from baseline blood urea nitrogen and she was sent to the hospital for further evaluation and treatment. Emergency Room evaluation confirmed that and urinalysis suggested possibility of a urinary tract infection. She does have a chronic indwelling suprapubic catheter. The patient denies any back pain or fever or chills and has no new pains different from her baseline condition. PAST MEDICAL HISTORY: Very extensive and includes advanced multiple sclerosis, obstructive sleep apnea, hypertension, obesity, type 2 diabetes mellitus, decubitus ulcers in the sacral and heel areas in the past, cirrhosis of the liver, recent acute on chronic congestive heart failure, recent acute kidney injury as well as chronic kidney disease, neurogenic bladder due to MS, chronic obstructive pulmonary disease, history of recurrent gout, history of urogenital implants, history of anemia, history of chronic anxiety. MEDICATIONS: On the list from the retirement include levofloxacin recently, ipratropium/albuterol nebulizer treatments, isosorbide mononitrate, amlodipine, gabapentin, torsemide, prednisone, hydralazine, ferrous sulfate, allopurinol, folic acid, MiraLax, vitamin D3, carvedilol, Lantus, oxybutynin, melatonin, loratadine, Tylenol No. 3, Humalog, aspirin, Lexapro, famotidine, plain Tylenol, and vitamin C. ALLERGIES: She has no known drug allergies. FAMILY HISTORY: Not applicable. SOCIAL HISTORY: She is a retirement resident because of advanced MS. She smoked in the past, but she has not smoked and does not have any vices for many years. REVIEW OF SYSTEMS: GENERAL: She has malaise, but no shaking chills or fever that she was aware of [address] [address] HISTORY AND PHYSICAL Name: RADHA ALEMAN Room #: 457-P [facility] IN ..#: [id number] Admission: 05/05/18 Attend Phys: Irving Goldberg MD Discharge: Date of : 50 Report #: [id number] until today, no headache, no vision changes, she does have some dysgeusia and feels like her tongue and throat are coated. No neck pain. There is mild shortness of breath, no chest pain, no complaints of back pain, no abdominal pain. She does not have any pain in her extremities. She feels very tired, more so than usual. PHYSICAL EXAMINATION: VITAL SIGNS: In the Emergency Room showed a temperature of 37.3 degrees centigrade, which is afebrile, but today her temperature is 100.5 degrees Fahrenheit, which is febrile. Her pulse is 57 on admission, respirations 16. Her oxygen saturation was 98% on 3 liters per nasal cannula and her blood pressure was 181/73, her blood pressure remains elevated today. Her oxygen saturation was 92%. Her weight yesterday was recorded as 274 pounds via bed scale consistent with the patient report. Her current oxygen replacement is at 1.5 liters per nasal cannula. GENERAL: The patient is drowsy, but pleasant, older female with no overt signs of distress. HEENT: Extraocular muscles are intact. Borderline exophthalmos. Oropharynx is moist and pink, slightly whitish coating but no areas of erythema. Sinuses are nontender. Hearing is grossly normal. NECK: Supple, without adenopathy or thyromegaly or mass. LUNGS: Fairly clear bilaterally. CARDIAC: Reveals a regular rate and rhythm without tachycardia. ABDOMEN: Soft. Bowel sounds are present, no visceromegaly or masses. EXTREMITIES: The lower extremities are somewhat flaccid as far as skin tone with trace edema at worst. Peripheral pulses easily palpated in all 4 distal extremities. MENTAL STATUS: The patient is arousable, oriented to place and person, but not time. No overt hallucinations or delusions. Affect is somewhat downcast. Generalized weakness, but more pronounced in the lower extremities. No focal sensory losses. No Babinski signs. Gait and Romberg could not be assessed. LABORATORY DATA: This morning's second set of labs show white blood cell count of 9800 without differential, hemoglobin of 8.6, hematocrit of 26.2, which is slightly lower than yesterday, which was 9.0 and 27.4, but the white count is stable and the platelet count today is 122,000, comparable to 127,000 the day before. The red blood cell indices are fairly normal with a distribution but that has increased at 20, in the setting of a mean cell volume of 86.5. The basic metabolic panel shows a sodium of 142, potassium 4.1, (was 5.3 yesterday), chloride of 107, bicarbonate of 24, BUN of 114, creatinine 3.1 with an anion gap of 11, glucose is 124 nonfasting, and calcium is 8.5. The estimated GFR is 18 and urinalysis shows a specific gravity that is less than 1.005 with a pH of 6; is negative for protein, glucose, ketones, bilirubin; positive for blood, nitrite and 3+ for leukocytes. Microscopic exam shows a few white blood cell clumps, 0-5 white blood cells per high power field, 3-10 red blood cells per high power field, few bacteria, and no casts or crystals. Blood cultures were [facility] [address] [place] [address] HISTORY AND PHYSICAL Name: RADHA ALEMAN Room #: 457-P [facility] IN .R.#: [id number] Admission: 05/05/18 Attend Phys: Irving Goldberg MD Discharge: Date of : 50 Report #: [id number] obtained in the Emergency Room and are pending. ASSESSMENT AND PLAN: 1. Fever and generalized malaise in a relatively immunocompromised patient - I am concerned because of the patient's recent respiratory failure and her chronic indwelling urinary catheter. Cultures are pending. We will proceed with intravenous antibiotics looking for the usual suspects as far as infections go and close monitoring. 2. We will use acetaminophen to help her manage the fever and continue gentle rehydration to continue. Chest x-ray will be ordered. 3. Advanced multiple sclerosis - neurologically stable. 4. Hypertension - out of control, we will increase therapy. 5. Type 2 diabetes mellitus. We will perform serial monitoring and use a sliding scale in addition to her long-acting insulin at mealtimes. 6. History of recent acute on chronic diastolic heart failure (see recent echocardiogram) - we will treat to lower blood pressure and decrease cardiac work. 7. History of obstructive sleep apnea, currently using supplemental oxygen, but not CPAP or BiPAP. 8. Chronis obstructive pulmonary disease - continue respiratory nebulizer treatments and supplemental oxygen. I did not hear any wheezes or see any evidence of respiratory distress despite the patient's complaint that she did feel somewhat short of breath. 9. History of gout - no evidence of disease at this time. 10. Anemia, probably multifactorial and made worse by inflammation as well as by chronic kidney disease. Iron deficiency is remarked upon in her past as well. See continuing workup. <ELECTRONICALLY SIGNED> By: Irving Goldberg MD 05/08/18 1708 1208 1248 Irving Goldberg MD /nt
--- NOTE | ~2018-05-05 | EKG ---
[address] [address] ELECTROCARDIOGRAM REPORT Name: RADHA ALEMAN Room #: 457-P ADM IN M.R.#: [id number] Admission: 05/05/18 Attend Phys: Irving Goldberg MD Discharge: Date of : 50 Report #: [id number] THIS REPORT FOR: //name// [facility] Test Date: 2018-05-06 Test Time: 12:24:28 Pat Name: RADHA ALEMAN Department: Room: [facility] Gender: F Coffee Sommelier: jlambertz : 1950 Requested By: Irving Goldberg Order Number: [id number] MD: Camden Rudolph Measurements Intervals [place] Rate: 68 P: 69 MS: 184 QRS: -62 QRSD: 147 T: 81 QT: 446 QTc: 475 Interpretive Statements Sinus rhythm RBBB and LAFB Compared to ECG 04/20/2018 06:44:32 ST (T wave) deviation no longer present Electronically Signed On 05-08-2018 8:08:21 CDT by Camden Rudolph [email or web address] <ELECTRONICALLY SIGNED> By: Camden Rudolph MD, [facility] 05/08/18 0808 1224 23 Camden Rudolph MD, [facility] /EPI
[~2018-05-05 18:15] MED LIST changes: +ACETAMINOPHEN-1 EAC1 PO; +AMLODIPINE BESY10 MG PO; +CLARITIN10 MG PO; +COZAAR 50 MG TA50 M2 PO; +HUMALOG100 UNIT/1 SUBQ; +IMDUR 60 MG TAB60 M1 PO; +IPRAT-ALBUT 0.5-3 ML INH; +NEURONTIN600 MG PO; +OXYBUTYNIN 5 MG5 M2 PO; +PREDNISONE 10 M10 MG PO
[2018-05-05 18:16] VITALS: BP 181/73
[2018-05-05 18:51] LABS: ABSOLUTE NEUTROPHILS 7.6 thou/uL (1.4-8.2); BASOPHILS 0.9 % (0.0-2.0); EOSINOPHILS 4.2 % (0.0-3.0); HEMATOCRIT 27.4 % (37.0-47.0); LYMPHOCYTES 11.3 % (24.0-44.0); MCH 28.4 pg (26.0-34.0); MCHC 32.9 g/dL (28.0-37.0); MCV 86.2 fL (80.0-100.0); MONOCYTES 4.9 % (1.0-8.0); PLATELET COUNT 127 thou/uL (150-400); POLYS 78.7 % (36.0-66.0); RBC 3.18 mil/uL (4.20-5.00); RDW 20.5 % (10.5-14.5); WBC 9.7 thou/uL (4.0-11.0)
[2018-05-05 18:59] LABS: CALCIUM 8.9 mg/dL (8.5-10.1); CREATININE 3.2 mg/dL (0.6-1.0); POTASSIUM 5.3 mmol/L (3.5-5.1)
[2018-05-05 19:04] LABS: ALBUMIN 3.1 g/dL (3.4-5.0); DIRECT BILIRUBIN 0.1 mg/dL (<0.1-0.3); TOTAL BILIRUBIN 0.6 mg/dL (<0.1-1.0); TOTAL PROTEIN 7.4 g/dL (6.4-8.2)
[2018-05-05 19:12] LABS: URINE BILIRUBIN NEGATIVE (Negative); URINE BLOOD 2+ (Negative); URINE CLARITY CLEAR; URINE COLOR YELLOW; URINE GLUCOSE-RANDOM* NEGATIVE (Negative); URINE KETONES NEGATIVE (Negative); URINE LEUKOCYTES 3+ (Negative); URINE NITRITE POSITIVE (Negative); URINE PROTEIN (DIPSTICK) NEGATIVE (Negative); URINE SPECIFIC GRAVITY <= 1.005 (1.005-1.035); URINE UROBILINOGEN 0.2 E.U./dl (0.2-1.0)
[2018-05-05 19:32] LABS: SQUAMOUS None Seen /LPF (0-3); WBC CLUMPS Few (None Seen)
[2018-05-05 19:33] LABS: BACTERIA 1-9 Few /HPF (None Seen); CASTS None Seen /LPF (None Seen); CRYSTALS None Seen /LPF (None Seen); URINE RBC 3-10 Few /HPF (0-2); URINE WBC 0-5 Rare /HPF (0-5)
[2018-05-05 19:44] LABS: ANISOCYTOSIS 2+
[2018-05-05 19:45] LABS: POLYCHROMASIA 1+
[2018-05-05 21:44] VITALS: BP 185/70
[2018-05-05 21:49] VITALS: BP 181/65
[2018-05-06 03:40] VITALS: BP 186/76
[2018-05-06 06:29] LABS: HEMATOCRIT 26.2 % (37.0-47.0); HEMOGLOBIN 8.6 gm/dL (12.0-15.0); MCH 28.4 pg (26.0-34.0); MCHC 32.8 g/dL (28.0-37.0); MCV 86.5 fL (80.0-100.0); RBC 3.03 mil/uL (4.20-5.00); WBC 9.8 thou/uL (4.0-11.0)
[2018-05-06 06:37] LABS: CALCIUM 8.5 mg/dL (8.5-10.1); CREATININE 3.1 mg/dL (0.6-1.0); POTASSIUM 4.1 mmol/L (3.5-5.1)
[2018-05-06 07:25] VITALS: BP 173/73
[2018-05-06 16:10] VITALS: BP 170/72
[2018-05-06 19:09] VITALS: BP 139/51
[2018-05-07 04:41] VITALS: BP 147/50
[2018-05-07 06:44] LABS: ABSOLUTE NEUTROPHILS 5.3 thou/uL (1.4-8.2); ABSOLUTE RETIC COUNT 0.0428 10^6/uL; BASOPHILS 0.5 % (0.0-2.0); EOSINOPHILS 4.6 % (0.0-3.0); HEMATOCRIT 24.9 % (37.0-47.0); LYMPHOCYTES 12.7 % (24.0-44.0); MCH 28.1 pg (26.0-34.0); MCHC 32.3 g/dL (28.0-37.0); MCV 86.8 fL (80.0-100.0); MONOCYTES 5.8 % (1.0-8.0); OBSERVED RETIC COUNT 1.49 % (0.6-2.6); PLATELET COUNT 109 thou/uL (150-400); POLYS 76.4 % (36.0-66.0); RBC 2.86 mil/uL (4.20-5.00); RDW 19.8 % (10.5-14.5); WBC 6.9 thou/uL (4.0-11.0)
[2018-05-07 06:59] LABS: % SATURATION 31 % (20-39); ALBUMIN 2.7 g/dL (3.4-5.0); CALCIUM 8.4 mg/dL (8.5-10.1); CREATININE 2.7 mg/dL (0.6-1.0); DIRECT BILIRUBIN 0.2 mg/dL (<0.1-0.3); IRON 43 ug/dL (50-170); POTASSIUM 4.1 mmol/L (3.5-5.1); TIBC 139 ug/dL (250-450); TOTAL BILIRUBIN 0.6 mg/dL (<0.1-1.0); TOTAL PROTEIN 6.6 g/dL (6.4-8.2); URIC ACID* 9.6 mg/dL (2.6-7.2)
[2018-05-07 07:20] VITALS: BP 155/70
[2018-05-07 16:22] VITALS: BP 152/71
[2018-05-07 19:50] VITALS: BP 130/56
[2018-05-08 05:12] VITALS: BP 138/71
[2018-05-08 06:52] LABS: CALCIUM 8.4 mg/dL (8.5-10.1); CREATININE 2.7 mg/dL (0.6-1.0); POTASSIUM 4.2 mmol/L (3.5-5.1)
[2018-05-08 08:00] VITALS: BP 133/67
[2018-05-08 11:45] VITALS: BP 115/58
[2018-05-08 13:57] LABS: HEMATOCRIT 27.6 % (37.0-47.0)
[2018-05-08 15:54] VITALS: BP 111/59
[2018-05-08 20:00] VITALS: BP 106/43
[2018-05-09] VITALS: BP 112/59
[2018-05-09 04:00] VITALS: BP 124/62
[2018-05-09 06:20] LABS: HEMATOCRIT 27.9 % (37.0-47.0); HEMOGLOBIN 9.1 gm/dL (12.0-15.0)
[2018-05-09 06:32] LABS: CALCIUM 8.6 mg/dL (8.5-10.1); POTASSIUM 4.2 mmol/L (3.5-5.1)
[2018-05-09 07:25] VITALS: BP 118/68
[2018-05-09 15:45] VITALS: BP 115/60
[2018-05-09 19:59] VITALS: BP 138/68
[2018-05-10 04:22] VITALS: BP 169/81
[2018-05-10 07:55] VITALS: BP 161/66
[2018-05-10 15:20] VITALS: BP 141/55
[2018-05-10 20:35] VITALS: BP 151/50
[2018-05-11 04:00] VITALS: BP 161/61
[2018-05-11 05:30] LABS: HEMATOCRIT 25.4 % (37.0-47.0); HEMOGLOBIN 8.4 gm/dL (12.0-15.0); MCH 28.6 pg (26.0-34.0); MCV 86.8 fL (80.0-100.0); RBC 2.92 mil/uL (4.20-5.00); RDW 18.8 % (10.5-14.5); WBC 6.6 thou/uL (4.0-11.0)
[2018-05-11 05:44] LABS: ALBUMIN 2.5 g/dL (3.4-5.0); CALCIUM 8.2 mg/dL (8.5-10.1); CREATININE 2.9 mg/dL (0.6-1.0); POTASSIUM 4.1 mmol/L (3.5-5.1); TOTAL BILIRUBIN 0.3 mg/dL (<0.1-1.0); TOTAL PROTEIN 6.4 g/dL (6.4-8.2)
[2018-05-11 07:08] VITALS: BP 131/59
[2018-05-11 10:11] LABS: ANTI-DNA SCREEN 1 IU/mL (0-9); ANTI-RNP 0.2 AI (0.0-0.9)
[2018-05-11] MEDS ORDERED: PROCRIT20000 UNIT SUBQ (12:02)
[2018-05-11] MEDS ORDERED: HYDRALAZINE 5050 MG PO (12:03)
[2018-05-11] MEDS ORDERED: CARDURA4 MG PO (12:05)
[2018-05-11] MEDS ORDERED: DEMADEX 2020 MG/1 TA PO (12:06)
[2018-05-11 16:13] VITALS: BP 148/68
== END 2018-05-11 19:56 | DRG 682 ==
LOC: ER 18:15 → EROBS 19:35 → 4W 19:35
PROVIDERS: Emergency Medicine; Hospitalist; Internal Medicine; Nurse Practitioner Gerontology
PROC: 30233N1 Transfusion of Nonautologous Red Blood Cells into Peripheral Vein, Percutaneous Approach (ICD-10-PCS; principal; 2018-05-08)
DX: N17.9 Acute kidney failure, unspecified (principal); I50.33 Acute on chronic diastolic (congestive) heart failure; E43 Unspecified severe protein-calorie malnutrition; N39.0 Urinary tract infection, site not specified; I13.0 Hypertensive heart and chronic kidney disease with heart failure and stage 1 through stage 4 chronic kidney disease, or unspecified chronic kidney disease; Z68.43 Body mass index [BMI] 50.0-59.9, adult; N18.4 Chronic kidney disease, stage 4 (severe); E66.9 Obesity, unspecified; K74.60 Unspecified cirrhosis of liver; J44.9 Chronic obstructive pulmonary disease, unspecified; F41.9 Anxiety disorder, unspecified; M10.9 Gout, unspecified; G47.33 Obstructive sleep apnea (adult) (pediatric); I87.8 Other specified disorders of veins; I89.0 Lymphedema, not elsewhere classified; G47.00 Insomnia, unspecified; G35 Multiple sclerosis; E86.0 Dehydration; E86.1 Hypovolemia; E11.22 Type 2 diabetes mellitus with diabetic chronic kidney disease; I27.20 Pulmonary hypertension, unspecified; F32.9 Major depressive disorder, single episode, unspecified; D63.8 Anemia in other chronic diseases classified elsewhere; Z79.899 Other long term (current) drug therapy; Z79.82 Long term (current) use of aspirin; Z87.891 Personal history of nicotine dependence; Z83.3 Family history of diabetes mellitus; Z82.49 Family history of ischemic heart disease and other diseases of the circulatory system; Z90.49 Acquired absence of other specified parts of digestive tract; Z90.710 Acquired absence of both cervix and uterus
CPT/HCPCS: 10040; 10045

== ENCOUNTER 2018-10-03 16:04 | Inpatient (IN) | payer OTHER ==
[~2018-10-03] VITALS: Ht 152.4 cm; Wt 99.6 kg
[~2018-10-03 16:04] MED LIST changes: +AMLODIPINE BESYL5 M1 PO; +CARDURA4 MG PO; +HYDROCODON-ACE1 EAC7 PO; +PROCRIT20000 UNIT SUBQ
[2018-10-03 16:06] VITALS: BP 114/51
[2018-10-03 16:48] LABS: HEMATOCRIT 31.6 % (37.0-47.0); HEMOGLOBIN 9.9 gm/dL (12.0-15.0); MCH 27.9 pg (26.0-34.0); MCHC 31.4 g/dL (28.0-37.0); MCV 88.8 fL (80.0-100.0); PLATELET COUNT 258 thou/uL (150-400); RBC 3.56 mil/uL (4.20-5.00); RDW 19.7 % (10.5-14.5); WBC 20.2 thou/uL (4.0-11.0)
[2018-10-03 16:58] LABS: CALCIUM 9.5 mg/dL (8.5-10.1); CREATININE 5.8 mg/dL (0.6-1.0); POTASSIUM 3.7 mmol/L (3.5-5.1)
[2018-10-03 17:06] LABS: ALBUMIN 2.1 g/dL (3.4-5.0); TOTAL BILIRUBIN 0.7 mg/dL (<0.1-1.0); TOTAL PROTEIN 7.8 g/dL (6.4-8.2); TROPONIN-I 0.08 ng/mL (<0.06)
[2018-10-03 17:12] LABS: URINE BILIRUBIN NEGATIVE (Negative); URINE BLOOD 3+ (Negative); URINE CLARITY TURBID; URINE COLOR RED; URINE GLUCOSE-RANDOM* NEGATIVE (Negative); URINE KETONES NEGATIVE (Negative); URINE NITRITE-REFLEX NEGATIVE (Negative); URINE PROTEIN (DIPSTICK) 2+ (Negative); URINE UROBILINOGEN 0.2 E.U./dl (0.2-1.0)
[2018-10-03 17:15] LABS: URINE LEUKOCYTES-REFLEX 3+ (Negative)
[2018-10-03 17:19] LABS: CASTS None Seen /LPF (None Seen); CRYSTALS None Seen /LPF (None Seen); MUCUS >6 Heavy strn/LPF (None Seen); SQUAMOUS 0-3 Few /LPF (0-3); URINE RBC >20 Many /HPF (0-2); URINE WBC-REFLEX >25 Many /HPF (0-5)
[2018-10-03 17:20] LABS: BACTERIA-REFLEX >30 Many /HPF (None Seen); WBC CLUMPS Packed (None Seen)
--- NOTE | 2018-10-03 17:28 | EKG ---
[address] [address] [place] [address] ELECTROCARDIOGRAM REPORT Name: RADHA ALEMAN Room #: [facility] Noe#: [id number] Admission: 10/03/18 Attend Phys: Discharge: Date of : 50 Report #: [id number] THIS REPORT FOR: //name// [facility] ED Test Date: 2018-10-03 Test Time: 16:59:57 Pat Name: RADHA ALEMAN Department: Room: Gender: F Tv Production Assistant: ABDIRAHMAN : 1950 Requested By: Shakira Ramirez Order Number: [id number] MD: Camden Rudolph Measurements Intervals [place] Rate: 77 P: 64 ND: 164 QRS: -67 QRSD: 143 T: 46 QT: 417 QTc: 472 Interpretive Statements Sinus rhythm RBBB and LAFB Compared to ECG 05/23/2018 17:19:58 Junctional rhythm no longer present Electronically Signed On 10-03-2018 17:28:26 WIRELESS SALES MANAGER by Camden Rudolph [email or web address] <ELECTRONICALLY SIGNED> By: Camden Rudolph MD, [facility] 10/03/18 1728 1659 1659 Camden Rudolph MD, [facility] /EPI
[2018-10-03 17:30] LABS: ABSOLUTE NEUTROPHILS 17.4 thou/uL (1.4-8.2); ANISOCYTOSIS 1+; PLATELET ESTIMATE NORMAL
[2018-10-03 21:29] VITALS: BP 116/52
[2018-10-03 22:27] VITALS: BP 94/45
[2018-10-03 22:30] VITALS: BP 117/50
[2018-10-03] MEDS ORDERED: IBUPROFEN 400400 M2 PO (22:58)
[2018-10-03] MEDS ORDERED: RENVELA800 MG PO (22:59)
[2018-10-03] MEDS ORDERED: ARTIFICIAL TEA1 EAC1 INTRAOCULR (23:00)
[2018-10-03] MEDS ORDERED: MILK OF MA2400 MG/10 PO (23:01)
[2018-10-03] MEDS ORDERED: RENA-VITE TABL0.8 MG PO (23:17)
[2018-10-03] MEDS ORDERED: PEPCID20 MG PO (23:18)
[2018-10-03] MEDS ORDERED: REGLAN 10 MG TA10 MG PO (23:19)
[2018-10-03] MEDS ORDERED: IMDUR 60 MG TAB60 M1 PO (23:25)
[2018-10-03] MEDS ORDERED: LANTUS100 UNIT/M SUBQ (23:39)
[2018-10-03] MEDS ORDERED: SSD CREAM 1% 5050 GM TOP (23:39)
[2018-10-03] MEDS ORDERED: AMITIZA 24 MCG24 MC1 PO (23:40)
[2018-10-03] MEDS ORDERED: NORCO 5-325 TA1 EACH PO (23:41)
--- NOTE | 2018-10-04 00:22 | NUR ---
PATIENT WAS A NEW ADMISSION TO THE UNIT THIS SHIFT. SHE ARRIVED VIA CART FROM THE ER AND HAD TO BE TRANSFERRED TO BED. PATIENT IS ALERT TO SELF AND SITUATION AND IS UNABLE TO FULLY PARTICIPATE IN ADMISSION PROCESS. PATIENT HAS MULTIPLE WOUNDS WHICH REQUIRED DRESSINGS AND PICTURES. NURSE TO COMPETE ADMISSION AND INITIATE CARE PLAN.
[2018-10-04 01:00] VITALS: BP 154/72
[2018-10-04 05:30] VITALS: BP 143/66
[2018-10-04 07:24] VITALS: BP 122/55
--- NOTE | 2018-10-04 07:50 | EKG ---
[address] [place] [address] ELECTROCARDIOGRAM REPORT Name: RADHA ALEMAN Room #: 356-P ADM IN M.R.#: [id number] Admission: 10/03/18 Attend Phys: Ruby Torres MD Discharge: Date of : 50 Report #: [id number] THIS REPORT FOR: //name// [facility] ED Test Date: 2018-10-03 Test Time: 17:05:48 Pat Name: RADHADEANNA ALEMAN Department: Room: [facility] Gender: F Manager Trade Marketing: ABDIRAHMAN : 1950 Requested By: Shakira Ramirez Order Number: [id number] MD: Camden Rudolph Measurements Intervals [place] Rate: 71 P: 262 CA: 215 QRS: 33 QRSD: 98 T: 51 QT: 401 QTc: 436 Interpretive Statements Sinus or ectopic atrial rhythm Borderline prolonged CA interval Poor R wave progression Compared to ECG 10/03/2018 16:59:57 Ectopic atrial rhythm now present Left anterior fascicular block no longer present Right bundle-branch block no longer present Electronically Signed On 10-04-2018 7:50:13 TABLEAU ARCHITECT by Camden Rudolph [email or web address] <ELECTRONICALLY SIGNED> By: Camden Rudolph MD, [facility] 10/04/18 0750 1705 1705 Camden Rduolph MD, [facility] /EPI
[2018-10-04 13:19] VITALS: BP 97/44
--- NOTE | 2018-10-04 13:58 | NUR ---
ASSUMED PATIENT CARE AT 0715. PATIENT ORIENTED TO PERSON AND PLACE. VERY LETHARGIC, WOULD NOT FOLLOW ANY COMMANDS ON FIRST ASSESSMENT. FEVER OF 103 F. IN THE MORNING. UNABLE TO GIVE ANY ORAL MEDS DUE TO PATIENT BEING SO LETHARGIC. AFEBRILE FOR NOON VITALS. IV TEAM PLACED NEW IV IN THE AFTERNOON. ANTIBIOTICS STARTED. MULTIPLE PRESSURE WOUNDS AND DTI'S. WOUND ROUNDED AND WROTE FOR DRESSING CHANGE ORDERS, SEE WOUND RN NOTE. WOUNDS ARE VERY FOUL SMELLING. SURGERY CONSULTED FOR POSSIBLE I&D OF WOUNDS. Q2 TURN. VERY SLOWLY WOKRING TOWARDS DC GOALS.
--- NOTE | 2018-10-04 14:42 | NUR ---
WOUND CONSULT: PT. WAS SEEN TODAY BY DR. HERRERA AND MYSELF. PT. HAS MULTIPLE PRESSURE ULCER THROUGHOUT HER BODY. DEEP TISSUE INJURYS ARE LOCATED AT: LEFT LATERAL HEEL, LEFT LATERAL ANKLE, LEFT LATERAL LEG, LEFT 5TH MTP JOINT, LEFT MEDIAL ANKLE, LEFT POSTERIOR CALF, RIGHT HEEL, RIGHT POSTERIOR CALF, AND RIGHT GREAT TOE. PT. ALSO HAS A FISSURE LOCATED ON HER RIGHT 4TH TOE PLANTER SURFACE. STAGE 3 PRESSURE ULCER TO HER RIGHT LATERAL CALF AND AN UNSTAGABLE PRESSURE ULCER TO HER SACRUM. HER RIGHT ADAN HAS 2 POSSIBLE HEMOTOMA'S WELL. RECOMMENDATIONS: BETADINE DAILY TO ALL DTI'S AND FISSURE DAKIN'S TO SACRUM AND RIGHT LATERAL LEG BID HEEL PROTECTORS VALENTINO PUMP GENERAL SURGERY CONSULT FOR SACRUM ULCER ARTERIAL DOPPERAL FOR EVALUATION OF BLOOD FLOW DIEATARY CONSULT PT. AND STAFF NURSE WERE INSTRUCTED ON WOUND CARE.
--- NOTE | 2018-10-04 15:21 | NUR ---
assessment: CM REVIEWED CHART AND MET WITH PATIENT AT THE BEDSIDE. PT WAS ADMITTED WITH SEPSIS/UTI/CHRONIC RENAL FAILURE. PT IS A LTC RESIDENT AT [facility]. PT ALSO GETS DIALYSIS THERE . PLANS ARE FOR PATIENT TO RETURN BACK TO [facility] ONCE MEDICALLY STABLE TO DO SO. CM CONTACTED [facility] AND LEFT VM WELL FAXED UPDATED CLINICAL. CM ALSO REACHED PATIENTS DAUGHTER ARJUN TO UPDATE. CM WILL CONTINUE TO FOLLOW TO ASSIST NEEDED.
[2018-10-04 15:23] VITALS: BP 103/51
[2018-10-04 22:15] VITALS: BP 110/61
[2018-10-05 04:45] VITALS: BP 118/70
--- NOTE | 2018-10-05 05:58 | NUR ---
ASSESSMENT: PT REMAIN ALERT TIMES TWO, DOES NOT FULLY GRASP SITUATION NOR TIME. PT WAS IN DIALYSIS AT THE TIME OF SHIFT CHANGE ON ANOTHER UNIT. PT RETURNED BACK TO HER ROOM AT APPROXIMATED.Y 2215. PT C/O COCCYX PAIN, PRN PAIN MEDICATIONS WERE GIVEN WHILE IN DIALYSIS, PARTIAL RELIEF. PT WAS REPOSITIONED, MADE COMFORTABLE WITH PILLOWS UNTIL TIME FOR NEXT DOSE OF HYDROCODONE. PT STATE THAT SHE FELT BETTER AFTER BEING MOVED AND WANTED TO WAIT A COUPLE OF MORE MINS FOR PRN PAIN MED. SUPERPUBIC CATH INTACT, 50 ML OF URINE OUTPUT. NO BM. DRESSINGS C/D/I. DIALYSIS FISTULA INTACK, +BRUIT AND + THRILL. CURRENTLY POOR PROGRESS TOWARDS DC GOALS. WILL CONTINUE TO MONITOR.
[2018-10-05 06:15] LABS: ALBUMIN 1.8 g/dL (3.4-5.0); CALCIUM 9.3 mg/dL (8.5-10.1); CREATININE 4.8 mg/dL (0.6-1.0); PHOSPHORUS 2.4 mg/dL (2.5-4.9); POTASSIUM 4.3 mmol/L (3.5-5.1)
[2018-10-05 08:04] VITALS: BP 116/72
--- NOTE | 2018-10-05 10:37 | NUR ---
FAMILY AT BEDSIDE, ASKING IF PT CAN GET FOOD SINCE SHE DID NOT EAT BREAKFAST. GIVEN YOGURT, SF JELLO, APPLESAUCE, AND OJ FOR NOW SINCE DIETARY HOT PLATES ARE THRU FOR THE MORNING.
[2018-10-05 11:56] LABS: HEMATOCRIT 29.3 % (37.0-47.0); HEMOGLOBIN 9.2 gm/dL (12.0-15.0); MCH 27.8 pg (26.0-34.0); MCHC 31.2 g/dL (28.0-37.0); MCV 89.3 fL (80.0-100.0); PLATELET COUNT 280 thou/uL (150-400); RBC 3.29 mil/uL (4.20-5.00); RDW 19.8 % (10.5-14.5); WBC 23.7 thou/uL (4.0-11.0)
[2018-10-05 12:48] LABS: ANISOCYTOSIS 2+
--- NOTE | 2018-10-05 14:35 | NUR ---
ASSUMED CARE AT SHIFT CHANGE; ASSESSMENTS PER CHART. GIVEN MEDS FOR PAIN PRN. FAMILY AT BEDSIDE MOST OF THE DAY AND UPDATED ON PHONE. VSS. LABS NOTED. WILL CONT TO FOLLOW POC AND INTERVENE PRN.
--- NOTE | 2018-10-05 15:08 | NUR ---
ON-GOING ASSESSMENT: CM REVIEWED CHART. PT HAS SACRAL DECUBITIS AND PER NOTES PATIENT MAY BENEFIT FROM EXCISIONAL DEBRIDEMENT AND POSSIBLE DIVERTING COLOSTOMY. CM FAXED UPDATED CLINICAL TO TRUDI BUENO. CM WILL CONTINUE TO FOLLOW TO ASSIST NEEDED.
[2018-10-05 16:34] VITALS: BP 112/75
[2018-10-05 20:56] VITALS: BP 101/53
[2018-10-06] VITALS (14 sets, daily range): BP systolic 52–117; BP diastolic 40–73
--- NOTE | 2018-10-06 02:43 | NUR ---
PATIENT IS ADVANCING VERY SLOWLY IN HER CARE PLAN. VITAL SIGNS STABLE WITH PATIENT HAVING NO COMPLAINTS OF NAUSEA. PATIENT DID COMPLAIN OF PAIN WHICH WAS TREATED WITH MEDICATION AND NON PHARMACOLOGICAL INTERVENTION. ORIENTED TO SELF, PATIENT SEEMS LETHARGIC AND CONFUSED. SHE IS UNABLE TO ADEQUATELY STATE HER NEEDS. PATIENTS WOUNDS CHANGED PER ORDERS, WITH FREQUENT TURNS AND BARRIER CREAM APPLIED NEEDED. PATIENT IS EXPECTED TO DIALYZE TOMORROW. CONTINUE PLAN OF CARE.
[2018-10-06 09:48] LABS: CALCIUM 9.6 mg/dL (8.5-10.1); POTASSIUM 4.7 mmol/L (3.5-5.1)
[2018-10-06 09:51] LABS: CREATININE 6.1 mg/dL (0.6-1.0)
--- NOTE | 2018-10-06 11:06 | NUR ---
Patient left unit at 1050 for surgery.
--- NOTE | 2018-10-06 13:36 | NUR ---
on-going assessment: CM REVIEWED CHART. PT IS DOWN FOR DEBRIDEMENT. IF PATIENT IS MEDICALLY STABLE OVER THE WEEKEND SHE CAN RETURN TO [facility]. ADMISSIONS LIASON AT [facility] STATING THEY CAN ACCEPT PATIENT BACK IF SHES READY OVER THE WEEKEND AND TO CONTACT [facility] MAIN NUMBER [phone] AND ASK FOR [facility] WELL THE FAX NUMBER TO FAX DISCHARGE ORDERS/SUMMARY. FOR TRANSPORTATION CONTACT [facility]:[phone] AND STATE TO BILL [facility]. CM ATTEMPTED TO CONTACT ARJUN BUT NO ANSWER. CM WILL CONTINUE TO FOLLOW TO ASSIST NEEDED.
--- NOTE | 2018-10-06 16:22 | NUR ---
Assumed care of patient at 0700. Vitals have been stable, BP soft at times. Patient is drowsy, but arouses easily. Alert to self, otherwise, hard to determine orientation. Does follow commands. NPO pending surgery. Completed I&D of sacral wound today. Returned to floor; initated post-op vitals. Patient is alert to self, somewhat drowsy post-op. Dressing is clean and intact. Started on clear liquid diet, advance as tolerated. Other dressing changes completed before surgery per orders. Profo boots in place. Repositioning every couple hours to maintain skin integrity. Low airloss mattress pump in place. Family at bedside. Slowly progressing towards POC. Will continue to monitor.
--- NOTE | 2018-10-06 16:40 | NUR ---
Son at bedside, requests he be called with information regarding patient. Patient's daughter, Corrine, lives far away and Richard lives close, so he is able to be here when needed. Richard (son) [phone]
[2018-10-07 03:45] VITALS: BP 110/59
--- NOTE | 2018-10-07 04:35 | NUR ---
ASSUMED CARE AT 1900, ASSESSMENT COMPLETED. PT AWAKE, WILL LOOK AT STAFF WHEN SPOKEN TO BUT HAS NOT TALKED. TOLERATING LIQUIDS WELL, NO NAUSEA, NO S/S RESP DISTRESS ON 3L BASELINE O2. CHANGED RIGHT LATERAL LEG DRESSING AND SACRAL DRESSING. SACRAL DRESSING WAS NEARLY SOAKED THROUGH WITH SANGINOUS DRAINAGE; USED 1.5 PACKS OF KERLIX AND 3 ABD'S TO PACK AND COVER WOUND. NO STOOL SO FAR THIS SHIFT. LESS THAN 50 ML OUTPUT FROM CATHETER, DARK YELLOW WITH SIGNIFICANT AMOUNT OF SEDIMENT. TURNING Q2 HOURS, BUT PT HAS PULLED WEDGE OUT AND THROWN ON FLOOR AFTER BEING REPOSITIONED. GAVE IV MORPHINE THIS AM FOR PAIN. PLAN FOR EARLY DIALYSIS TODAY. NO OTHER CONCERNS, WILL CONTINUE TO MONITOR.
[2018-10-07 06:01] LABS: HEMATOCRIT 26.8 % (37.0-47.0); HEMOGLOBIN 8.2 gm/dL (12.0-15.0); MCH 27.7 pg (26.0-34.0); MCHC 30.7 g/dL (28.0-37.0); MCV 90.1 fL (80.0-100.0); PLATELET COUNT 309 thou/uL (150-400); RBC 2.98 mil/uL (4.20-5.00); RDW 19.8 % (10.5-14.5); WBC 22.8 thou/uL (4.0-11.0)
[2018-10-07 06:18] LABS: ALBUMIN 1.7 g/dL (3.4-5.0); CALCIUM 9.4 mg/dL (8.5-10.1); CREATININE 6.7 mg/dL (0.6-1.0); PHOSPHORUS 4.8 mg/dL (2.5-4.9); POTASSIUM 5.4 mmol/L (3.5-5.1)
[2018-10-07 06:42] LABS: ANISOCYTOSIS 2+; METAMYELOCYTES 1 %; PROMYELOCYTES 1 %
[2018-10-07 06:43] LABS: PLATELET ESTIMATE NORMAL
[2018-10-07 08:08] VITALS: BP 102/49
[2018-10-07 13:50] LABS: DIRECT BILIRUBIN 0.3 mg/dL (<0.1-0.3); TOTAL BILIRUBIN 0.7 mg/dL (<0.1-1.0); TOTAL PROTEIN 8.1 g/dL (6.4-8.2)
--- NOTE | 2018-10-07 17:57 | NUR ---
Assumed care of patient at 0700. Vitals have been stable. This morning, patient is drowsy / lethargic, but does arouse. Not following commands well this morning. After Dr. Torres rounded, orders for CT head and ID consult. CT head shows no acute. Dr. Costello rounded on patient. No changes to antibiotics at this time. Dialysis started early, tolerated well. Pulled 1.5 L off. After dialysis, patient is more awake and is conversing. Following commands well. Seems much more interactive and back to baseline, although mentation does wax and wane. Does complain of sacral pain, especially with movement. Bonner administered with good effect. Diet advanced to carb control diet. Dr. Paulino at bedside this afternoon during dressing change. To continue same orders regarding wound care. Gave Dr. Paulino patient's son, Richard, phone number and request call to family per family's request. Post debridement picture taken and placed in chart. Repositioning every couple hours to maintain skin integrity, low airloss mattress in place. Progressing towards POC. Will continue to monitor.
[2018-10-07 19:07] VITALS: BP 94/50
--- NOTE | 2018-10-07 23:36 | NUR ---
CALLED AND LEFT MESSAGE WITH DR. ESTES ANSWERING SERVICE ABOUT PTS INSULIN NOT ON EMAR FOR COVERAGE. INSULIN WAS RESTARTED AND 6 UNITS WERE GIVEN ACCORDING TO SLIDING SCALE.
[2018-10-08 02:47] VITALS: BP 101/54
[2018-10-08 05:42] LABS: BASOPHILS 0.3 % (0.0-2.0); EOSINOPHILS 0.1 % (0.0-3.0); HEMATOCRIT 24.4 % (37.0-47.0); HEMOGLOBIN 7.5 gm/dL (12.0-15.0); LYMPHOCYTES 5.7 % (24.0-44.0); MCH 27.6 pg (26.0-34.0); MCHC 30.6 g/dL (28.0-37.0); MCV 90.2 fL (80.0-100.0); MONOCYTES 6.1 % (1.0-8.0); PLATELET COUNT 299 thou/uL (150-400); POLYS 87.8 % (36.0-66.0); RBC 2.71 mil/uL (4.20-5.00); RDW 19.9 % (10.5-14.5); WBC 15.9 thou/uL (4.0-11.0)
--- NOTE | 2018-10-08 06:05 | NUR ---
ROTATED PT ON Q2 BASIS. CRITICAL LAB CALLED IN FROM [facility] IN THE LAB FOR POSITIVE BLOOD CULTURES. POSITIVE FOR GRAM + COCCI. WILL ADVISE ID IN THE AM. PT'S DAUGHTER CALLED TO CHECK ON PT, BUT PT WAS SLEEPING. INSTRUCTED TO CALL BACK DURING DAY HOURS TO SPEAK TO HER MOTHER. PT MORE ALERT THAN DURING ADMISSION. HOURLY ROUNDING.
--- NOTE | 2018-10-08 09:56 | NUR ---
ASSUMED CARE AT 0710, SHIFT ASSESSMENT DONE, VSS. MEDS GIVEN. DENIES ANY PAIN THIS AM. IV ANTIBIOTICS INFUSING. ATE BREAKFAST, RESTING IN BED THIS AM. WILL CONTINUE TO ASSESS AND ASSSIT WITH ADLs NEEDED.
--- NOTE | 2018-10-08 12:57 | HC ---
[facility] [place] [address] CONSULTATION Name: RADHA ALEMAN Room #: 356-P [facility] IN .R.#: [id number] Admission: 10/03/18 Attend Phys: Ruby Torres MD Discharge: Date of : 50 Report #: [id number] THIS REPORT FOR: //name// CC: Ruby Torres DATE OF SERVICE: 10/07/2018 REASON FOR CONSULTATION: Evaluate leukocytosis post sacral decubitus debridement. HISTORY OF PRESENT ILLNESS: The patient was a 68-year-old with history of multiple sclerosis, diabetes, end-stage renal disease, pulmonary hypertension, chronic diastolic heart failure, who presented on 10/03/2018 with a sacral decubitus, which was nonhealing, associated with encephalopathy. On presentation, she was found to have E. coli identified from her urine culture. Her white count was elevated at 20,000. Placed on vancomycin and Zosyn. Surgical evaluation performed and underwent debridement of her sacrum yesterday by Dr. Paulino. Intraoperative findings included abscess with purulence identified from her sacral bone as further debridement was completed. Cultures from this procedure are pending. Postoperatively, the patient has had no fever, but remains encephalopathic. Her maximum temperature was on 10/04/2018 where it was 103 degrees. White count today was 22,000. The patient was a poor historian. She would arouse and would answer yes or no to questioning, but was not consistent. She is currently on dialysis via right upper extremity AV fistula. She arouses to verbal stimulus, then drifts back off to sleep. Denies any headache. She is anorexic. No reported abdominal pain. She had two loose stools. No nausea or emesis. No cough or sputum production. No chest pain. She has a peripheral IV in her left arm. She makes minimal amount of urine. No other rashes or decubiti. She does have pressure wounds to her right lower extremity below the knee. REVIEW OF SYSTEMS: A 10-point review of systems is negative other than what is described above. ALLERGIES: None. MEDICATIONS: As noted on her MAR including vancomycin and Zosyn adjusted for her renal failure. PAST MEDICAL HISTORY: Multiple sclerosis, obstructive sleep apnea, hypertension, diabetes, cirrhosis, chronic kidney disease, now end stage, on dialysis; suprapubic catheter, COPD, congestive heart failure, anemia, anxiety, gout, pulmonary edema, UTI, left shoulder fracture, pneumonia. FAMILY HISTORY: Coronary artery disease. [facility] [address] [place] [address] CONSULTATION Name: RADHA ALEMAN Room #: 356-P [facility] IN ..#: [id number] Admission: 10/03/18 Attend Phys: Ruby Torres MD Discharge: Date of : 50 Report #: [id number] SOCIAL HISTORY: Past smoker, no significant alcohol intake. PHYSICAL EXAMINATION: VITAL SIGNS: Afebrile, hemodynamically stable on dialysis. She was obese. She would arouse when stimulated, otherwise would drift back off to sleep. HEENT: Eyes without scleral icterus or conjunctivitis. Mouth without mucositis or lesion. NECK: Supple with no thyromegaly, mass or JVD. LUNGS: Clear. HEART: Regular, without murmur, gallop or rub. ABDOMEN: Soft, obese, mild lower abdominal tenderness, but the patient could not localize any of this discomfort. No associated masses or hepatosplenomegaly. Sacral wound was packed. EXTREMITIES: Right lower extremity had two swollen areas pretibial, appeared most consistent with hematomas. Had breakdown of the plantar aspect of her distal first toe and fourth toe. Moderate amount of tenderness throughout the lower leg below the knee. Diminished pulses in the foot. Femoral and popliteal were palpable. The patient was on dialysis and it was difficult to have her complete neurologic examination. Mood was sedate. No other rashes or decubiti noted. No palpable adenopathy. LABORATORY STUDIES: Hemoglobin 8.2, white count 22.8 with 86% segs, 6% bands. Creatinine 6.7, glucose 323, albumin 1.7. Urine culture, gram negatives identified as E. coli sensitive to Augmentin, ceftriaxone, imipenem, nitrofurantoin, Zosyn. Tissue cultures are pending. Blood cultures negative to date. Arterial studies of the right lower extremity showed high-grade obstruction superficial femoral artery and distal popliteal artery with total occlusion of the posterior tibial. On the left, she had moderate distal popliteal obstruction with complete occlusion of the posterior tibia. CT of the abdomen and pelvis on 10/03/2018 showed no acute changes to the abdomen or pelvis. Dependent atelectasis. Large sacral decubitus without definite abscess cavity. IMPRESSION: A 68-year-old with multiple sclerosis, presents with large sacral infected decubitus with osteomyelitis. Also has peripheral vascular disease and likely component of ischemia to the right lower leg. Now encephalopathy post surgical debridement of her sacrum. Postoperative day #1. Source of her encephalopathy, I suspect, is more toxic metabolic. Could have exacerbation of her Multiple sclerosis. 1. Diabetes. 2. End-stage renal disease. 3. Congestive heart failure. 4. Escherichia coli cystitis. 5. Morbid obesity. 6. Anemia of chronic disease. [facility] [address] [place] [address] CONSULTATION Name: RADHA ALEMAN Room #: 356-P ADM IN M.R.#: [id number] Admission: 10/03/18 Attend Phys: Ruby Torres MD Discharge: Date of : 50 Report #: [id number] RECOMMENDATIONS: We will obtain CT scan of the head in addition to culturing of her blood. Check liver function tests and chest x-ray. Continue with wound care. May wish further intervention regarding her distal arterial obstructive disease. If stools persist, we will check C. difficile by PCR. We will continue with vancomycin and Zosyn adjusted for renal failure. We will make further recommendations pending further studies. <ELECTRONICALLY SIGNED> By: Eduardo Costello MD 10/08/18 1257 [id number] [id number] Eduardo Costello MD /nt
[2018-10-08 15:43] VITALS: BP 90/50
--- NOTE | 2018-10-08 17:46 | O ---
[address] [address] OPERATIVE REPORT Name: RADHA ALEMAN Room #: 356-P ADM IN M.R.#: [id number] Admission: 10/03/18 Attend Phys: Ruby Torres MD Discharge: Date of : 50 Report #: [id number] THIS REPORT FOR: //name// CC: Ruby Torres DATE OF SERVICE: 10/06/2018 SURGEON: Oscar Paulino MD. MULCHER OPERATOR: None. PREOPERATIVE DIAGNOSES: 1. Unstageable sacral decubitus ulcer. 2. Multiple sclerosis. 3. Sleep apnea. 4. Type 2 diabetes mellitus. 5. Cirrhosis. 6. Hypertension. 7. Stage 4 chronic kidney disease with hemodialysis dependence. 8. Chronic obstructive pulmonary disease. 9. Congestive heart failure. 10. Chronic anemia. POSTOPERATIVE DIAGNOSES: 1. Large stage 4 sacral decubitus ulcer with probable osteomyelitis. 2. Multiple sclerosis. 3. Sleep apnea. 4. Type 2 diabetes mellitus. 5. Cirrhosis. 6. Hypertension. 7. Stage 4 chronic kidney disease with hemodialysis dependence. 8. Chronic obstructive pulmonary disease. 9. Congestive heart failure. 10. Chronic anemia. PROCEDURE: Excisional and ultrasonic debridement of stage 4 sacral decubitus ulcer including skin, subcutaneous tissue, muscle and bone. Starting measurement 7.1 x 6.2 cm. Ending measurement 15.8 x 15.3 cm. *area 241.7 cm2. ANESTHESIA: General endotracheal anesthesia and local anesthetic. [address] [address] OPERATIVE REPORT Name: RADHA ALEMAN Room #: 356-P [facility] IN [facility]#: [id number] Admission: 10/03/18 Attend Phys: Ruby Torres MD Discharge: Date of : 50 Report #: [id number] ESTIMATED BLOOD LOSS: 25 mL. SPECIMEN: Sacral skin, subcutaneous tissue, muscle and sacral bone. COMPLICATIONS: None appreciated. INDICATIONS FOR PROCEDURE: This is a 68-year-old female patient of Dr. Torres who is a resident at [facility]. The patient was admitted to [facility] with an exacerbation of her congestive heart failure. She was found to have multiple decubitus ulcers including a large sacral decubitus ulcer with malodorous drainage. The ulcer is unstageable. She presents now for excisional and ultrasonic debridement. OPERATIVE FINDINGS: Measurements are as noted above. The tissue necrosis beneath the surface was a significantly larger area. As a result, a large amount of tissue loss was present and wide excision was necessary. Debridement was carried down to healthy, bleeding tissue. There appeared to be osteomyelitis as the marrow beneath the outer table of the bone was soft and mushy. At the conclusion of the operation, sponge, needle, and instrument counts were correct. The wound was hemostatic. DESCRIPTION OF PROCEDURE IN DETAIL: After risks, benefits, and expectations of the operation were discussed in detail with the patient, informed consent was obtained. The patient was identified in the preoperative holding area. She has been receiving scheduled IV antibiotics. She was taken to the operating room. She was placed in the supine position. SCDs were placed on the patient's bilateral lower extremities and pneumatic compression was initiated. The patient was then given IV sedation and she was intubated without incident. She was placed in the left lateral decubitus position on the OR table. The buttocks were taped apart. The sacral area was prepped and draped in the standard sterile fashion. A timeout was then performed to identify the correct patient and procedure. Local anesthetic was infiltrated into the skin and subcutaneous tissue in the area of the planned incision. A sharp #10 blade scalpel was used to make the incision through the skin. Electrocautery was used to dissect the subcutaneous tissue down to a more necrotic tissue; however, there was significant undermining in all directions. The skin was trimmed away to allow for this and ultimately improve wound care. All necrotic appearing tissue was removed including skin, subcutaneous tissue, and muscle down to the bone. The outer table of bone was then removed with a rongeur. Cultures were taken from the bone marrow to be sent for aerobes, anaerobes and fungus. Necrotic appearing marrow and outer table were removed. A rasp was then used to file down any jagged edges. Bleeding points were made hemostatic with electrocautery. The wound was then irrigated. The [employer] ultrasonic debridement device was then used to mechanically debride the entire surface area of the wound including the [address] [address] OPERATIVE REPORT Name: RADHA ALEMAN Room #: 356-P [facility] IN M.R.#: [id number] Admission: 10/03/18 Attend Phys: Ruby Torres MD Discharge: Date of : 50 Report #: [id number] bone marrow. There was good cavitation of the tissue, which would ultimately decrease the bacterial load and microscopically disrupt the nonviable cells. Bleeding points were again made hemostatic with electrocautery. Local anesthetic was infiltrated into the deeper surrounding tissue. After ensuring final hemostasis, the wound was packed with 1:1 Betadine to normal saline on Kerlix. ABDs and tape were then applied. The patient tolerated the procedure well. She was returned to the supine position, awakened, extubated, and taken to recovery room in stable condition with no apparent intraoperative complications. <ELECTRONICALLY SIGNED> By: Oscar Paulino MD, FACS 10/08/18 1746 [id number] Oscar Paulino MD, FACS /nt
[2018-10-08 20:08] VITALS: BP 88/47
[2018-10-09 00:28] VITALS: BP 88/47
[2018-10-09 04:48] VITALS: BP 87/55
[2018-10-09 08:10] VITALS: BP 90/47
--- NOTE | 2018-10-09 11:49 | NUR ---
SW reviewed chart and spoke with nursing. Pt is s/p debridement. Awaiting cultures at this time. Pt remains on IV abx per ID. SW left voice message for [place] in admissions at [facility]. Plan is for pt to return to [facility] when medically stable. BRANDON is following to assist as needed with discharge planning. [facility]--
[2018-10-09 12:00] VITALS: BP 95/55
[2018-10-09 16:30] VITALS: BP 94/47
--- NOTE | 2018-10-09 17:31 | NUR ---
PT WENT TO DIALYSIS THIS MORN AND 1 L WAS REMOVED...RN STATED HER FISTULA BLED QUITE A BIT...WILL MONITOR..NO FURTHER BLEEDING NOTED
[2018-10-09 19:41] VITALS: BP 97/59
[2018-10-10 03:35] VITALS: BP 100/51
--- NOTE | 2018-10-10 07:27 | NUR ---
PT. ABLE TO REST DURING THE NIGHT; NO C/O PAIN; MORPHINE GIVEN BEGORE DRESSING CHANGE; DRESSING CHANGED PER ORDER; TOLERATED WELL; NPO AT MIDNIGHT. ASSESSMENT CHARGED.
[2018-10-10 07:29] VITALS: BP 109/45
--- NOTE | 2018-10-10 15:43 | NUR ---
care of pt assumed this am @ ~0700. pt resting quietly and comfortably most of the day, watching tv and sleeping. pt denies soa and no n/v/d today. pt w/ a fair to good appetite for food and fluid. pt to receive dialysis tomorrow and she is aware. pt on bedrest, but is able to assist w/ repositioning of self. pt w/ contracted bue, needs max assistance to eat her meals, mostly being fed by staff. sp cathater functional w/o issues, but noted very low urine output, but this is noted in pt's hx. pt incontinent of stool. drsg change to multiple wounds today. blk food drop boots on today per pt's request. pt expressed no wishes, goals or problems for the day. no visitors today, but pt has talked w/ family and friends today per her phone and it has brightened her spirits and attitude.
[2018-10-10 18:59] VITALS: BP 104/51
--- NOTE | 2018-10-11 02:42 | NUR ---
Assumed care of pt at 1900. Pt alert and oriented to self. Per am nurse report, pt is to have IR arteriogram of monserrat extremity in the am. Pt's daughter called and verbal consent obtained with another nurse witness. NPO after midnight. Q2h turn. Suprapubic catheter in place. Sacrum wound and rt calf wound dressings changed. Insulin and blood thinners to be held. 3L O2. Fall precautions in place. Will continue to monitor.
[2018-10-11 03:34] VITALS: BP 111/54
--- NOTE | 2018-10-11 07:38 | HC ---
[facility] [place] [address] CONSULTATION Name: RADHA ALEMAN Room #: 356-P [facility] IN .R.#: [id number] Admission: 10/03/18 Attend Phys: Ruby Torres MD Discharge: Date of : 50 Report #: [id number] THIS REPORT FOR: //name// CC: Ruby Torres DATE OF SERVICE: 10/04/2018 CHIEF COMPLAINT: Multiple pressure ulcerations. HISTORY OF PRESENT ILLNESS: This is a 68-year-old female patient with a history of congestive heart failure, who was admitted to the hospital with an acute exacerbation of congestive heart failure and is noted to have multiple pressure ulcerations. She has significantly decreased level of consciousness and is not able to provide any information about herself. She has a history of end-stage renal disease. Some confusion was noted previously and noted for urinary tract infection as well. She is normally a resident at [facility]. PAST MEDICAL HISTORY: The patient's past medical history includes multiple sclerosis, sleep apnea, hypertension, type 2 diabetes, multiple pressure ulcers, cirrhosis, chronic kidney disease stage 4, suprapubic catheter, COPD, congestive heart failure, anxiety, chronic anemia, previous shoulder fracture and a history of renal dialysis beginning in 05/2018. FAMILY HISTORY: Positive for heart disease. SOCIAL HISTORY: The patient has a history of former smoking and history of past alcohol use. She cannot answer any questions herself. REVIEW OF SYSTEMS: Not obtainable due to her level of consciousness. MEDICATIONS: The patient's medications include Zyloprim, folic acid, MiraLax, melatonin, Humalog, Motrin, Renvela, milk of magnesia, Mita-Johnna, Pepcid, metoclopramide, Imdur, Silvadene cream, Lantus, Amitiza, [place], Tylenol and vitamin C. ALLERGIES: None. PHYSICAL EXAMINATION: VITAL SIGNS: At this time include pulse 77, respiratory rate 18, blood pressure 103/51 and temperature 98.3. GENERAL: This is a chronically ill-appearing female patient who appears to be in no obvious distress. HEENT: Head normocephalic. Nose and throat are clear. NECK: Supple. LUNGS: Diminished. HEART: Regular. [facility] [address] [place] [address] CONSULTATION Name: RADHA ALEMAN Room #: 356-P [facility] IN ..#: [id number] Admission: 10/03/18 Attend Phys: Ruby Torres MD Discharge: Date of : 50 Report #: [id number] ABDOMEN: Soft, nontender. EXTREMITIES: Examination of the extremities demonstrate multiple areas of pressure concern. She has a fairly large unstageable pressure ulcer in the sacrum that is with moderate eschar and some moist slough. The depth is not able to be evaluated due to the presence of these things. She has a stage 3 pressure ulceration to her right lateral calf area that is clean and granulating. She has multiple deep tissue injuries including her right heel, right posterior calf, right great toe, right fourth toe plantar surface with a fissure and hematomas to the right pretibial region x 2. On the left side, she has deep tissue injuries to the left lateral heel, left lateral ankle and lower leg fifth MTP, left medial ankle region and left posterior calf, possibly related to catheter or stockings. She has scarring and a previously healed right ischial pressure ulceration that is now epithelialized. CLINICAL IMPRESSION: 1. Unstageable pressure ulcer of the sacrum. 2. Stage 2 pressure ulcer of the right lateral calf. 3. Multiple deep tissue injuries detailed above. 4. Subcutaneous hematomas to the right pretibial region x 2. 5. Acute toxic metabolic encephalopathy. 6. End-stage renal disease. 7. Morbid obesity. RECOMMENDATIONS: At this point in time, we will check arterial Dopplers of both lower extremities. The hematomas do not seem to have any necrosis or infection associated with them. I am not convinced that her vascular status is normal. Therefore, I do not see any acute indication for debridement or incision and drainage at this time. She will need a surgical debridement of the sacral ulcer. This is likely infected and is unlikely to heal without aggressive debridement. We will ask General Surgery to see her. We will recommend Betadine to the deep tissue injuries, Prevalon boots or PRAFO boots for pressure prophylaxis of the lower extremities. She will need low air loss mattress, q.2 hour turning and positioning. We used a half-strength Dakin's moist gauze to the sacral region for now. Consider a wound VAC pending the appearance after surgery. I appreciate being asked to see the patient in consultation. <ELECTRONICALLY SIGNED> By: Amadou Santiago MD 10/11/18 0738 14 [id number] Amadou Santiago MD /nt
--- NOTE | 2018-10-11 09:53 | NUR ---
RECIEVED PT REPORT APPROX 0645. PT TAKEN TO DIALYSIS. NO CONCERNS AT THIS TIME. VSS. WILL CONT. TO MONITOR.
[2018-10-11 09:54] VITALS: BP 137/65
--- NOTE | 2018-10-11 10:28 | NUR ---
UPDATED DTR ARJUN- ANGIO POSTPONED TODAY PER. DR. CALLOWAY.
--- NOTE | 2018-10-11 11:06 | PATH ---
[facility] [address] [place] [address] PATHOLOGY RPT PROCEDURE Name: RADHA ALEMAN Room #: 356-P ADM IN M.R.#: [id number] Admission: 10/03/18 Date of : 50 Discharge: Report #: [id number] Path Case #: [id number] [facility] Accession Number: [id number] . 01 Material submitted: . PART A: SACRAL TISSUE PART B: SACRAL BONE . 01 Clinical history: . Sacral decubitus. . 02 Diagnosis: A. Soft tissue "sacral tissue": - Extensive necrosis with acute inflammation forming abscess and with fat necrosis. . B. Bone and soft tissue, "sacral bone": - Acute and chronic osteomyelitis. - Surrounding soft tissue also reveals inflammation and fibrosis. (SHA/db; 10/09/2018) LBQ/10/09/2018 . 02 Electronically signed: . Brendan Car MD, Pathologist NPI- [id number] . 01 Gross description: . A. Received in formalin labeled "Radha Aleman, sacral tissue" is a 14.8 x 9.6 x 4.7 cm aggregate of valencia-white skin and valencia-lopez discolored underlying soft tissue. Extensive areas of colindres-yellow possible necrosis are identified. Electrotyper Helper sections are submitted in cassette A1. . B. Received in formalin labeled "Karan, Radha, sacral bone" is an aggregate of valencia-lopez bone fragments measuring 3.5 x 3.5 x 0.8 cm. Electrotyper Helper sections are submitted in cassette B1 following decalcification. ([facility]; 10/08/2018) SYC/SYC . 02 Pathologist provided ICD-10: M46.28, L89.159 . 02 CPT . 764180, [id number] Specimen Comment: A courtesy copy of this report has been sent to Specimen Comment: [phone], . Specimen Comment: Report sent to / DR ESTES Specimen Comment: A duplicate report has been [place] [address] PATHOLOGY RPT PROCEDURE Name: RADHA ALEMAN Room #: 356-P ADM IN M.R.#: [id number] Admission: 10/03/18 Date of : 50 Discharge: Report #: [id number] Path Case #: [id number] updates. Performed at: [address], [place], [place] [id number] MD Michael Orozco MD Phone: [phone] Performed at: [address] [id number] MD Enedelia Hawkins MD Phone: [phone]
--- NOTE | 2018-10-11 13:17 | NUR ---
on-going assessment: cm reviewed chart. CM FAXED UPDATED CLINICAL TO [facility] AND CONTACTED [facility] IN ADMISSIONS TO SEE IF THEY COULD REVIEW WOUND CARE AND CONFIRM THEY CAN HANDLE THE WOUND CARE AND PATIENT CAN RETURN BACK THERE. CM WAITING TO HEAR BACK FROM [facility]. PT GETTING DIALYSIS TODAY. CM WILL CONTINUE TO FOLLOW TO ASSIST NEEDED.
[2018-10-11 14:24] VITALS: BP 122/79
--- NOTE | 2018-10-11 17:20 | NUR ---
SPOKE WITH DR. ESTES THIS EVENING TO INFORM THAT AM LABS WERE NPOT DRAWN. INSTRUCTED TO NOT DRAW LABS AT THIS TIME BUT ADD AM LABS FOR TOMORROW, START PT ON PREVIOUS DIET. WILL CONTINUE TO ASSESS.
[2018-10-11 18:11] VITALS: BP 105/64
[2018-10-11 19:16] LABS: HEMATOCRIT 23.1 % (37.0-47.0); HEMOGLOBIN 7.4 gm/dL (12.0-15.0); MCH 28.6 pg (26.0-34.0); MCHC 32.1 g/dL (28.0-37.0); MCV 89.3 fL (80.0-100.0); RBC 2.59 mil/uL (4.20-5.00); RDW 19.9 % (10.5-14.5); WBC 19.9 thou/uL (4.0-11.0)
[2018-10-11 19:31] LABS: CALCIUM 8.6 mg/dL (8.5-10.1); CREATININE 3.8 mg/dL (0.6-1.0); POTASSIUM 4.2 mmol/L (3.5-5.1)
[2018-10-11 20:45] VITALS: BP 106/66
--- NOTE | 2018-10-12 03:59 | NUR ---
ASSUMED CARE AT START OF SHIFT , DRESSING CHANGED TO LOWER LEG TOLERATED WELL AFTER PAIN PILL GIVEN. PT TURNED EVERY 2 HOURS. BUTTUCK DRESSING REMAIN INTACT. PIPELINE INTEGRITY ENGINEER SHOWS NSR .DISCUSSED PLAN OF CARE , PT VERBALIZED UNDERTSANDING AND AGREEABLE.
[2018-10-12 04:55] VITALS: BP 110/61
[2018-10-12 05:37] LABS: HEMATOCRIT 23.1 % (37.0-47.0); HEMOGLOBIN 7.3 gm/dL (12.0-15.0); MCH 28.2 pg (26.0-34.0); MCHC 31.7 g/dL (28.0-37.0); MCV 88.8 fL (80.0-100.0); RBC 2.6 mil/uL (4.20-5.00); RDW 20.2 % (10.5-14.5); WBC 15.7 thou/uL (4.0-11.0)
[2018-10-12 05:56] LABS: CALCIUM 8.8 mg/dL (8.5-10.1); CREATININE 4.2 mg/dL (0.6-1.0); POTASSIUM 4.1 mmol/L (3.5-5.1)
[2018-10-12 07:36] VITALS: BP 112/60
--- NOTE | 2018-10-12 08:50 | NUR ---
WOUND FOLLOW UP: PT. WAS SEEN ON 10/11/[address] HERRERA AND MYSELF. PT. DTI'S ARE HEALING AT THIS TIME. HER DISTAL HEMOTOMA ON HER RIGHT ADAN WAS OPENED BY DR. HERRERA AT THE BEDSIDE AND OLD BLOOD WAS EXPRESSED. PT. WILL START ON PULSE LAVAGE THERAPY TO HER SACRAL WOUND TO AID IN HEALING. RECOMMENDATIONS: CONTINUE WITH CURRENT PLAN OF CARE. PT. AND STAFF NURSE WERE INSTRUCTED ON WOUND CARE.
[2018-10-12 12:18] VITALS: BP 125/59
--- NOTE | 2018-10-12 13:52 | NUR ---
on-going assessment: CM REVIEWED CHART. PT WAS TO HAVE ANGIO YESTERDAY THAT WAS POST-PONED DUE TO WBC INCREASE. CM CONTACTED [facility] AND SPOKE WITH [facility]ERE[facility] IN ADMISSION WHO REPORTS SHE HAD NURSING REVIEW THE WOUND CARE FOR PATIENT AND THEY ARE ABLE TO ACCEPT HER BACK AND DO WOUND CARE AT THEIR FACILITY AND CONTINUE DIALYSIS. CM FAXED UPDATED CLINICAL. CM WILL CONTINUE TO FOLLOW TO ASSIST NEEDED.
--- NOTE | 2018-10-12 14:42 | NUR ---
WOUND FOLLOW UP: PT. WAS SEEN TODAY BY DR. HERRERA AND MYSELF. PT. WOUNDS REMAIN UNCHANGED AT THIS TIME. AWAITING FOR PT TO PROCEED WITH PULSE LAVAGE THERAPY TO SACRUM. RECOMMENDATIONS: CONTINUE WITH CURRENT PLAN OF CARE. PT. AND STAFF NURSE WERE INSTRUCTED ON WOUND CARE.
[2018-10-12 16:06] VITALS: BP 97/34
--- NOTE | 2018-10-12 16:31 | NUR ---
PT AWAKE/CONFUSED/FORGETFUL. COMPLAINING OF WOUND PAIN THIS AFTERNOON. GIVEN PAIN MEDICATION X1 AND REPORTS RELIEF OF PAIN. PULSATILE LAVAGE DONE BY PHYSICAL THERAPIST THIS AFTERNOON AND DRESSING CHANGE COMPLETED FOLLOWING. RECIEVING IV ANTIBIOTICS ORDERED. WILL CONTINUE TO MONITOR PT. PROGRESSING TOWARDS GOALS PER PLAN OF CARE.
[2018-10-12 19:25] VITALS: BP 98/36
[2018-10-13] VITALS (9 sets, daily range): BP systolic 106–158; BP diastolic 40–58
--- NOTE | 2018-10-13 06:08 | NUR ---
PT RESTING IN BED ON AND OFF, TURNING AND REPOSITIONING WITH WEDGE AND PILLOWS VSS, INCON'T OF STOOL, 50ML FROM CATHETER THIS AM, ATE A YOGURT AND HER SUPPLEMENT THIS AM, NOW NPO EXCEPT FOR SIPS WITH MEDS, ANGIOGRAM SCHEDULED FOR THIS AFTERNOON, WILL CON'T TO MONITOR PER PPOC.
[2018-10-13 06:13] LABS: HEMATOCRIT 24.9 % (37.0-47.0); HEMOGLOBIN 7.7 gm/dL (12.0-15.0); MCV 90.3 fL (80.0-100.0); RBC 2.75 mil/uL (4.20-5.00); RDW 20.6 % (10.5-14.5); WBC 14.3 thou/uL (4.0-11.0)
[2018-10-13 06:28] LABS: CALCIUM 8.9 mg/dL (8.5-10.1); CREATININE 5.1 mg/dL (0.6-1.0); POTASSIUM 4.2 mmol/L (3.5-5.1)
--- NOTE | 2018-10-13 09:13 | NUR ---
PT HAS BEEN A [facility] RESIDENT OF [facility] SINCE 2013. DEPENDENT FOR ADLS AND BED MOBILITY AND REQUIRING A MECHANICAL LIFT FOR TXS FOR MANY YEARS. PT UNABLE TO ACTIVELY MOVE BILAT LES WHEN BED MOBILITY ASSESSED DURING P.T. WOUND EVALUATION AND IS THEREFORE NOT A CANDIDATE FOR P.T. IN THE ACUTE HOSPITAL SETTING. PT WILL BE SEEN FOR REPOSITIONING DURING WOUND CARE AND RECOMMEND CONTINUED FREQUENT POSITION CHANGES BY NURSING STAFF.
--- NOTE | 2018-10-13 12:26 | NUR ---
care of pt assumed this am @ ~ 0700. pt taken to dialysis room on 4th floor this am, per bed, @ 0730. pt npo. spoke w/ cm re: discharge. called ir pt's arteriogram set for 7110-0800 today per jose by dr. braga, cm informed. pt still at dialysis at this time. rn will coordinate w/ pt re: drsg change w/ pulsated lavage when pt returns from dialysis.
--- NOTE | 2018-10-13 13:39 | NUR ---
ON-GOING ASSESSMENT: CM REVIEWED CHART AND SPOKE WITH ATTENDING. PT IS TO HAVE ANGIOGRAM TODAY. PT IS SLOWLY PROGRESSING TOWARDS DISCHARGE GOALS. IF PATIENT IS MEDICALLY STABLE OVER THE WEEKEND [facility] CAN ACCEPT HER BACK. IF SHE IS READY TO LEAVE OVER THE WEEKEND CONTACT [facility] [phone] TO GIVE REPORT. AT THAT TIME ASK THE NURSE THE FAX NUMBER TO FAX DISCHARGE ORDERS/DISCHARGE SUMMARY. SEND PATIENT WITH A CHART COPY. TRANSPORTATION WILL NEED TO BE ARRANGED THROUGH [facility] AND STATE TO BILL [facility] (ADMISSION [facility] APPROVED THIS). [facility] CAN BE REACHED AT [phone]. CONTACT PATIENT DAUGHTER AYAN TO NOTIFY OF DISCHARGE AND SHE CAN BE REACHED AT [phone] OR ON HER CELL [phone].
--- NOTE | 2018-10-13 15:24 | NUR ---
WOUND FOLLOW UP: PT. WAS SEEN TODAY BY DR. HERRERA AND MYSELF. PT. WOUND TO HER SACRUM IS RESPONDING WELL TO THE PULSE LAVAGE. PT. IS GOING TO HAVE HER ANGIO TODAY TO AID IN WOUND HEALING. RECOMMENDATIONS: CONTINUE WITH CURRENT PLAN OF CARE. PT. AND STAFF NURSE WERE INSTRUCTED ON WOUND CARE.
[2018-10-14 00:21] VITALS: BP 133/57
--- NOTE | 2018-10-14 03:25 | NUR ---
PT POST ANGIOGRAM OF LOWER EXTREMITIES DUE PAD. ACCESSED THROUGH LEFT GROIN. POST OPT MONITORING AND VITALS DOCUMENTED. DRESSING DRY AND INTACT. NO HEMATOMA BUT DRY RED BLOOD STAIN ON THE DRESSING. MARKED WITH A SHARPY. NO SIGN OF MAPPED AREA INCREASING IN SIZE. WOUND DRESSING OF THE SACRUM CHANGED. PT INCONTINENT AND C/O PAIN. MORPHINE IV UTILIZED. WILL CONTINUE TO FOLLOW POC
[2018-10-14 04:00] VITALS: BP 104/67
[2018-10-14 08:00] VITALS: BP 128/55
[2018-10-14 16:29] VITALS: BP 103/41
--- NOTE | 2018-10-14 18:55 | NUR ---
ASSUMED CARE OF PATIENT AT 0700. PT/VITALS STABLE. PATIENT CONFUSED IN THE MORNING AND ASKED TO BE FED, PATIENT BECAME MORE ALERT AND AGGITATED THE DAY WENT ON. THE PATIENT'S DAUGHTER CALLED AND SPOKE TO THE PATIENT OVER THE PHONE AND THE PATIENT CARRIED ON A CLEAR CONVERSATION. THE PATIENT'S DAUGHTER IN LAW AND TWO GRANDCHILDREN WERE AT THE BEDSIDE THIS EVENING. THE PATIENT REFUSED HER DRESSING CHANGES THROUGHOUT THE DAY AND THEN AGAIN WHEN HER VISITORS WERE HERE. SHE WAS ADAMANT STATING, "I HAVE BEEN HERE SLEEPING ALL DAY AND HAVEN'T BOTHERED ANYONE" AND ASKED ME TO LEAVE. ABX GIVEN. PATIENT SCHEDULED FOR PROCEDURE TUESDAY ON LEFT LEG BY DR. PALMER. ORDERS VERIFIED WITH AMALIA GOODRICH NP. DIALYSIS COORDINATED WITH DR. BRUNO TO TAKE PLACED AFTER PROCEDURE TUESDAY. WILL CONTINUE TO MONITOR AND FOLLOW POC.
[2018-10-14 20:25] VITALS: BP 110/69
[2018-10-15 04:45] VITALS: BP 108/66
[2018-10-15 07:07] VITALS: BP 121/53
--- NOTE | 2018-10-15 07:38 | NUR ---
Pt a/o to self, family and nurse. C/o pain upon turning and repositioning. Intermittently refused turning and repositioning, stating "butt hurts bad". Pain med given PRN. Pt refused all dressing changes and wound care during this shift as well as during previous day shift per previous day shift RN. VSS. No apparent distress. Will continue to monitor.
[2018-10-15 11:57] VITALS: BP 107/50
[2018-10-15 16:43] VITALS: BP 98/44
[2018-10-15 19:25] VITALS: BP 128/48
[2018-10-15 19:40] VITALS: BP 154/80
--- NOTE | 2018-10-15 19:58 | NUR ---
care of pt assumed this am @ ~0700. pt on bedrest, encouraged to allow staff to change her position every 2 hours to help heal her sacral wound, pt complied 50% of the time w/ the position changes. pt w/ a very poor appetite for her food today for all meals, only desiring to consume the Ensure served w/ each meal and water. dietary consult w/ calorie count may be necessary for pt in the future. minimal output from her supra pubic cathater. pt has denies soa, n/v/d today. pt co of sacral discomfort today, medicated w/ po and iv pain medication for comfort w/ relief. pt anticipating dialysis tomorrow and another ir angiogram of her left leg, telephone consent received from her daughter this evening. pt given a bath, linen change early this evening. Nubia Quiroz th
[2018-10-16] VITALS (8 sets, daily range): BP systolic 107–132; BP diastolic 25–83
--- NOTE | 2018-10-16 03:02 | NUR ---
ASSUMED CARE OF PATIENT AT 1900. VSS, AFEBRILE. TURNED Q2 WHEN ALLOWED. DRESSING TO SACRUM DONE AT 0200. NPO AFTER MIDNIGHT FOR ARTERIOGRAM. CONSENT OBTAINED FROM DAUGHTER.
--- NOTE | 2018-10-16 05:07 | NUR ---
ASSUMED PT CARE AROUND 0300. PT SLEEPING AT THIS TIME. HAD SMALL BOWEL MOVEMENT THIS AM. SACRAL DRESSING INTACT. REPOSITIONED W/ WEDGE. WILL CONTINUE TO MONITOR FURTHER.
[2018-10-16 05:50] LABS: ABSOLUTE NEUTROPHILS 9.9 thou/uL (1.4-8.2); BASOPHILS 0.6 % (0.0-2.0); EOSINOPHILS 1.9 % (0.0-3.0); HEMATOCRIT 22.6 % (37.0-47.0); MCH 27.8 pg (26.0-34.0); MCHC 31.1 g/dL (28.0-37.0); MCV 89.6 fL (80.0-100.0); MONOCYTES 6.5 % (1.0-8.0); PLATELET COUNT 297 thou/uL (150-400); RBC 2.52 mil/uL (4.20-5.00); WBC 12.4 thou/uL (4.0-11.0)
[2018-10-16 06:01] LABS: CALCIUM 8.3 mg/dL (8.5-10.1); CREATININE 5.5 mg/dL (0.6-1.0); POTASSIUM 4.2 mmol/L (3.5-5.1)
--- NOTE | 2018-10-16 11:19 | HC ---
[facility] [place] [address] CONSULTATION Name: RADHA ALEMAN Room #: 356-P [facility] IN ..#: [id number] Admission: 10/03/18 Attend Phys: Ruby Torres MD Discharge: Date of : 50 Report #: [id number] THIS REPORT FOR: //name// CC: Ruby Torres DATE OF SERVICE: 10/04/2018 NEPHROLOGY CONSULTATION ATTENDING PHYSICIAN: Ruby Torres M.D. REASON FOR CONSULTATION: End-stage renal disease. HISTORY OF PRESENT ILLNESS: The patient is well known to our service, has been on dialysis for the past 4 months. She has multiple sclerosis, diabetes mellitus, indwelling suprapubic catheter and has had paraparesis with inability to use her lower extremities. She has had recurrent urinary tract infections associated with her indwelling suprapubic catheter. PAST MEDICAL HISTORY: She has had the multiple sclerosis, diabetes, COPD and obstructive sleep apnea. She has got sacral and heel ulcers and pulmonary hypertension. MEDICATIONS: Medications at her facility include allopurinol 100 mg daily, folic acid 1 mg daily, MiraLax, insulin, Renvela 3 tabs p.o. with meals t.i.d., famotidine 20 mg daily, metoclopramide 5 mg q.i.d., Amitiza 24 mcg daily, aspirin 81 mg daily and escitalopram 20 mg daily. FAMILY HISTORY: Positive for heart disease. SOCIAL HISTORY: Former smoker, resides at [facility]. REVIEW OF SYSTEMS: Very difficult to get much out of her; she is barely arousable at this point. PHYSICAL EXAMINATION: GENERAL: This is very lethargic elderly woman looking her stated age. SKIN: Unremarkable. SKELETAL: Somewhat obese. HEENT: Extraocular movements difficult to test. No scleral icterus. Mucous membranes are dry. NECK: Neck veins are flat. CHEST: Sounds are diminished. HEART: Regular. ABDOMEN: Soft and nontender. Bowel sounds are present. EXTREMITIES: Show a dressing over the right leg. No peripheral edema. [facility] [address] [place] [address] CONSULTATION Name: RADHA ALEMAN Room #: 356-P [facility] IN M.R.#: [id number] Admission: 10/03/18 Attend Phys: Ruby Torres MD Discharge: Date of : 50 Report #: [id number] ASSESSMENT AND PLAN: 1. Change of mental status. She appears to have urinary tract infection with systemic involvement. She has received appropriate cultures and receiving antibiotics. I believe her mental status changes are due to the generalized infection with septic syndrome. 2. End-stage renal disease. She will need dialysis. Volume status somewhat problematic. At the current time, I think that we will dialyze her, but not remove any fluid. 3. Indwelling suprapubic catheter, with recurrent urinary tract infection. 4. Diabetes mellitus. 5. Obstructive sleep apnea, on BiPAP at night. 6. Chronic obstructive pulmonary disease with pulmonary hypertension. 7. Multiple sclerosis with paraparesis. 8. Generalized debility with residing in an extended care facility. <ELECTRONICALLY SIGNED> By: Cesario Harrison MD 10/16/18 1119 0850 [id number] Cesario Harrison MD /nt
--- NOTE | 2018-10-16 13:00 | NUR ---
on-going assessment: CM REVIEWED CHART. PT IS SLOWLY PROGRESSING TOWARDS DISCHARGE GOALS. ONCE MED[facility]ALLY STABLE [facility]. CM SPOKE WITH SERENA IN ADMISSION AT [facility] TO CONFIRM. ONCE STABLE FOR DISCHARGE [facility]: [phone] AND FAX DISCHARGE ORDERS TO [facility] FAX:[phone]. ARRANGE TRANSPORTATION THROUGH [facility] AND STATE TO BILL [facility], [facility] CALL:[phone]. CHART COPY WILL NEED TO BE SENT WITH PATIENT.
--- NOTE | 2018-10-16 19:25 | NUR ---
care of pt assumed this am @ 0700. pt schedulced for lle arterigram @ 1100, done, site c/d/i and pulses palpable & dopplerable. pt left for dialysis at 1430 today, still in dialysis at this time (1926), dinner tray awaiting pt in her room. pt npo this am, w/ a good appetite for her hamburger at lunch. pt sad and depressed today due to no family visits and confusion about what the plan of care is for her and her buttock wound. pt desires to get back to her friends at [facility].
[2018-10-17 05:48] VITALS: BP 100/50
[2018-10-17 07:26] VITALS: BP 102/40
--- NOTE | 2018-10-17 07:57 | NUR ---
Pt A/O x person and place. On O2 2L NC. S/p HD 10/16/18. VSS. Pt was reluctant to be turned and repositioned due to pain. With encouragement, pt was coorperative most of the time for turning and repisioning. Very time consuming when multiple dressing changes performed this AM with assistance of TENNIS CENTRE MANAGER. BM x3 during dressing changes. Complete bed bath given with 2 additional perineal care and repeated dressing changes at sacrum area due to multiple BM's. Pain meds given PRN and per pt request. VSS. No apparent distress noted. Pt resting in bed comfortably at this time.
--- NOTE | 2018-10-17 10:18 | NUR ---
ASSESMENT COMPLETED. VSS. A/O1-2. ANXIOUS. C/O PAIN- MEDS GIVEN ORDERED- SEE MAR. NO NV. TOLERATING DIET. ABX INFUSING. PT RESTING IN BED AT THIS TIME. REPOSITIONED FOR COMFORT. WILL CONT. TO MONITOR.
[2018-10-17 15:16] VITALS: BP 115/51
--- NOTE | 2018-10-17 16:13 | NUR ---
PAIN MORE CONTROLLED THIS AFTERNOON. DRESSING CHANGED ORDERED. FAMILY AT BEDSIDE. WILL CONT. TO MONITOR.
[2018-10-17 21:00] VITALS: BP 110/57
--- NOTE | 2018-10-18 03:09 | NUR ---
ASSUMED CARE OF PATIENT AROUND 1900. PATIENT REFUSED DRESSING CHANGES, OFFERED TO CHANGE THEM LATER OR BEFORE MORNING SHIFT CHANGE, STILL REFUSED. PATIENT ABLE TO REST MOST OF SHIFT. NO COMPLAINTS AT THIS TIME. WILL CONTINUE TO MONITOR.
[2018-10-18 04:00] VITALS: BP 107/60
[2018-10-18 04:27] LABS: HEMOGLOBIN 6.8 gm/dL (12.0-15.0); WBC 11.2 thou/uL (4.0-11.0)
[2018-10-18 04:28] LABS: HEMATOCRIT 21.6 % (37.0-47.0); MCH 28.6 pg (26.0-34.0); MCHC 31.4 g/dL (28.0-37.0); MCV 91.2 fL (80.0-100.0); RBC 2.37 mil/uL (4.20-5.00); RDW 21.8 % (10.5-14.5)
[2018-10-18 08:14] VITALS: BP 125/57
[2018-10-18 11:29] VITALS: BP 102/47
--- NOTE | 2018-10-18 12:19 | NUR ---
on-going assessment: cm reviewed chart and spoke with patient. PT IS HAVING DIALYSIS TODAY. PT IS UNSURE SHE WANTS TO RETURN TO [facility]. CM SPOKE WITH ATTENDING AND PATIENT LIKELY QUALIFIES FOR LTAC AND CM DISCUSSED WITH PATIENT SHE COULD LIKELY GO TO LTAC BEFORE RETURNING TO [facility] AND PATIENT WAS INTERESTED. CM DISCUSSED DIFFERENT LTAC LOCATIONS IN THE [facility] AND PATIENT WANTED REFERRAL SENT TO [facility]. CM CONTACTED ARJUNCale UMANZOR DAUGHTER/DPOA TO DISCUSS AND SHE WAS AGREEABLE WITH REFERRAL TO [facility]. [facility] WAS NOTIFIED. PATIENT ALSO WANTED CM TO CONTACT JESUS MANUEL HER SON AND DISCUSS. CM SPOKE WITH JESUS MANUEL AND HE IS AGREEABLE WELL. CM WILL CONTINUE TO FOLLOW TO ASSIST NEEDED.
[2018-10-18 16:25] VITALS: BP 108/46
[2018-10-18] MEDS ORDERED: BANOPHEN25 M1 PO (18:50)
[2018-10-18] MEDS ORDERED: NOVOLOG100 UNIT/1 SUBQ (18:51)
[2018-10-18] MEDS ORDERED: LANTUS100 UNIT/M SUBQ (18:52)
[2018-10-18] MEDS ORDERED: CLOPIDOGREL75 MG PO (18:54)
[2018-10-18] MEDS ORDERED: NYSTATIN100000 UNI PO (18:55)
[2018-10-18] MEDS ORDERED: ROCEPHIN 11 GM/1001 IVPB (18:56)
[2018-10-18] MEDS ORDERED: VANCO 500500 MG/100 IVPB (18:58)
[2018-10-18 20:48] VITALS: BP 105/53
--- NOTE | 2018-10-19 02:53 | NUR ---
ENCOURAGED TURNS,CONTINUES ON DRESSING CHANGES. SHE IS DIFFICULT TO GET HER TO TURN IN THE BED. SHE IS VERY RESISTANT TO MOVING. PROGRESSING SLOWLY WITH DISCHARGE GOALS. COMPLAINS OF PAIN TO HER RIGHT HIP. ONE DOSE OF HER PAIN RELIEVER TONIGHT.
[2018-10-19 05:15] VITALS: BP 116/65
--- NOTE | 2018-10-19 06:34 | NUR ---
0635 PLACED PAGE OUT TO [facility] TO NOTIFY THAT THE PATIENT IS IN A JUNCTIONAL RHYTHM. BLOOD PRESSURE STABLE AND ALERT AND ORIENTED X4.
[2018-10-19 07:42] VITALS: BP 94/49
--- NOTE | 2018-10-19 08:38 | EKG ---
[address] [email or web address] [address] ELECTROCARDIOGRAM REPORT Name: RADHA ALEMAN Room #: 356-P ADM IN M.R.#: [id number] Admission: 10/03/18 Attend Phys: Ruby Torres MD Discharge: Date of : 50 Report #: [id number] THIS REPORT FOR: //name// [facility] Test Date: 2018-10-19 Test Time: 07:17:15 Pat Name: RADHA ALEMAN Department: Room: 356 Gender: F Pipe Blanks Cut Off Saw Operator: Melly HAGAN : 1950 Requested By: Ruby Torres Order Number: [id number] MD: Camden Rudolph Measurements Intervals [place] Rate: 55 P: WI: QRS: -41 QRSD: 140 T: 20 QT: 598 QTc: 573 Interpretive Statements Junctional rhythm Incomplete RBBB Compared to ECG 10/03/2018 17:05:48 Junctional rhythm now present [place] has shifted leftward Right bundle-branch block now present Electronically Signed On 10-19-2018 8:38:17 BLUEPRINTER by Camden Rudolph [email or web address] <ELECTRONICALLY SIGNED> By: Camden Rudolph MD, [facility] 10/19/18 0838 0717 6 Camden Rudolph MD, [facility] /EPI
[2018-10-19 10:22] LABS: HEMATOCRIT 27.3 % (37.0-47.0); MCH 28.9 pg (26.0-34.0); MCHC 32.7 g/dL (28.0-37.0); MCV 88.5 fL (80.0-100.0); RBC 3.09 mil/uL (4.20-5.00); RDW 19.7 % (10.5-14.5); WBC 12.1 thou/uL (4.0-11.0)
[2018-10-19 10:23] LABS: HEMOGLOBIN 8.9 gm/dL (12.0-15.0)
[2018-10-19 10:28] LABS: CALCIUM 9.1 mg/dL (8.5-10.1); POTASSIUM 4.2 mmol/L (3.5-5.1)
--- NOTE | 2018-10-19 12:31 | NUR ---
Followup: more alert, eating and will drink nepro drinks most of time. Wts more stable in 220's. Change nutrition status to low risk
--- NOTE | 2018-10-19 14:35 | NUR ---
ON-GOING ASSESSMENT: PT WAS IN JUNCTIONAL RHYTHM AND CARIOLOGY WAS CONSULTED. DISCHARGE HAS BEEN PLACED ON HOLD FOR TODAY. CM UPDATED [facility]. CM ALSO SPOKE WITH PATIENTS DAughter ARJUN TO UPDATE. CM WILL CONTINUE TO FOLLOW TO ASSIST NEEDED.
--- NOTE | 2018-10-19 14:37 | NUR ---
ON-GOING ASSESSMENT: CM REVIEWED CHART. PT IS GETTING TRANSFUSED ONE UNIT. PLANS ARE FOR PATIENT TO HAVE SURGERY TOMORROW. CM UPDATED [facility]. CM WILL CONTINUE TO FOLLOW TO ASSIST NEEDED.
[2018-10-19 15:11] VITALS: BP 93/42
--- NOTE | 2018-10-19 16:39 | NUR ---
ASSESSMENT CHARTED - MEDS PER DEC - GIVEN HYDROCODONE X 1 DOSE - MORPHINE X 1 DOSE FOR CO'S OF PAIN WITH MOD RELIEF. GIVEN BENADRYL X 1 DOSE FOR CO'S OF ITCHING. AVERY DIET AND FLUIDS - WITH NO CO'S OF NAUSEA. HAS SPENT THE DAY RESTING IN BED - TURNED PATIENT WOULD ALLOW - DRESSINGS TO SACRUM / AND ANKLE AND FEET COMPLETED ORDERED. SACRUM WITH GREEN SLOUGH PRESENT IN THE WOUND BED. DAKINS WET TO DRY COMPLETED. FAMILY IN TO VISIT PATIENT TODAY - PT HAD HAIR CUT - PT WENT INTO JUNCTIONAL RHYTHM LAST NOC - EKG COMPLETED THIS AM AND SHOWED JUNCTIONAL RHYTHM - DR ESTES IN TO SEE PATIENT AFTER LUNCH AND CARDIOLOGY CONSULT ORDERED. NO CO'S AT THE PRESENT TIME. APPEARS TO BE RESTING COMFORTABLY.
[2018-10-19 18:49] VITALS: BP 109/49
[2018-10-20 03:29] VITALS: BP 144/47
--- NOTE | 2018-10-20 04:34 | NUR ---
ASSESSMENT CHARTED. RESTING QUIETLY TONIGHT. NEEDS ENCOURAGING TO TURN. ONE HYDROCODONE GIVEN THIS SHIFT. NO DISCHARGE CONCERNS VOICED. SHE IS AWARE OF POSSIBLE DISCHARGE TO [facility].
[2018-10-20 07:21] VITALS: BP 95/45
--- NOTE | 2018-10-20 13:22 | NUR ---
WOUND FOLLOW UP: PT. WAS SEEN TODAY BY DR. BOURGEOIS AND MYSELF. PT. DTI'S TO HER LOWER EXTREMITYS ARE ALL CLINICALLY BETTER. PT. SACRUM IS STABLE AT THIS TIME. PT. WILL BE DISCHARGING TODAY TO [facility]. DISCHARGE PLANNING WAS DISCUSSED. RECOMMENDATIONS: CONTINUE WITH CURRENT PLAN OF CARE. PT. AND STAFF NURSE WERE INSTRUCTED ON PLAN OF CARE.
--- NOTE | 2018-10-20 14:42 | NUR ---
DISCHARGE ORDERS RECEIVED. PATIENT HAS BEEN CLEARED FOR DISCHARGE TO [facility] PER ATTENDING PHYSICIAN ONCE DIALYSIS COMPLETED TODAY. CHART COPIED PER BLOCK GREASER. ORDERS FAXED TO [facility], VERIFIED RECEIVE. [facility] TO TRANSPORT PATIENT, 1800 HOURS. PER [employer] DISPATCH, PATIENT IS NOT COVERED FOR TRANSPORT FROM [facility] TO [facility], DENIAL NUMBER PROVIDED [id number]. DAUGHTER ARJUN NOTIFIED OF DISCHARGE PLAN AND TIME OF TRANSPORTATION. [facility] CONTACT INFORMATION PROVIDED TO HER WELL. UNIT NOTIFIED OF TIME OF TRANSPORT AND CONTACT NUMBER PROVIDED FOR REPORT. UNIT CM AWARE.
--- NOTE | 2018-10-20 17:57 | NUR ---
ASSUMED PATIENT CARE AT 0700. A/O X4. HAD HD TODAY. 1L FLUID MOVED. WOUND CARE PER ORDER. DC PIC TAKING. SLOWLY TOWARDS POC GOALS. DC TO [facility] SOON.
== END 2018-10-20 18:15 | DRG 853 ==
LOC: ER 16:04 → EROBS 18:28 → 3W 18:28
PROVIDERS: Anesthesiology; Internal Medicine; Internal Medicine Nephrology; Nurse Practitioner; Nurse Practitioner Family; Nurse Practitioner Gerontology; Specialist; Surgery; ADMIT Internal Medicine
PROC: 5A1D70Z Performance of Urinary Filtration, Intermittent, Less than 6 Hours Per Day (ICD-10-PCS; principal; 2018-10-04)
PROC: 0QB10ZZ Excision of Sacrum, Open Approach (ICD-10-PCS; 2018-10-06)
PROC: 5A1D70Z Performance of Urinary Filtration, Intermittent, Less than 6 Hours Per Day (ICD-10-PCS; 2018-10-07)
PROC: 5A1D70Z Performance of Urinary Filtration, Intermittent, Less than 6 Hours Per Day (ICD-10-PCS; 2018-10-09)
PROC: 5A1D70Z Performance of Urinary Filtration, Intermittent, Less than 6 Hours Per Day (ICD-10-PCS; 2018-10-11)
PROC: 04CM3ZZ Extirpation of Matter from Right Popliteal Artery, Percutaneous Approach (ICD-10-PCS; 2018-10-13)
PROC: 04CK3ZZ Extirpation of Matter from Right Femoral Artery, Percutaneous Approach (ICD-10-PCS; 2018-10-13)
PROC: 5A1D70Z Performance of Urinary Filtration, Intermittent, Less than 6 Hours Per Day (ICD-10-PCS; 2018-10-13)
PROC: B4181ZZ Fluoroscopy of Bilateral Renal Arteries using Low Osmolar Contrast (ICD-10-PCS; 2018-10-13)
PROC: 047P3DZ Dilation of Right Anterior Tibial Artery with Intraluminal Device, Percutaneous Approach (ICD-10-PCS; 2018-10-13)
PROC: 04CP3ZZ Extirpation of Matter from Right Anterior Tibial Artery, Percutaneous Approach (ICD-10-PCS; 2018-10-13)
PROC: 047M3Z1 Dilation of Right Popliteal Artery using Drug-Coated Balloon, Percutaneous Approach (ICD-10-PCS; 2018-10-13)
PROC: 047Q3DZ Dilation of Left Anterior Tibial Artery with Intraluminal Device, Percutaneous Approach (ICD-10-PCS; 2018-10-16)
PROC: 5A1D70Z Performance of Urinary Filtration, Intermittent, Less than 6 Hours Per Day (ICD-10-PCS; 2018-10-16)
PROC: 04CQ3ZZ Extirpation of Matter from Left Anterior Tibial Artery, Percutaneous Approach (ICD-10-PCS; 2018-10-16)
PROC: 5A1D70Z Performance of Urinary Filtration, Intermittent, Less than 6 Hours Per Day (ICD-10-PCS; 2018-10-17)
PROC: 30233N1 Transfusion of Nonautologous Red Blood Cells into Peripheral Vein, Percutaneous Approach (ICD-10-PCS; 2018-10-18)
PROC: 5A1D70Z Performance of Urinary Filtration, Intermittent, Less than 6 Hours Per Day (ICD-10-PCS; 2018-10-20)
DX: A41.9 Sepsis, unspecified organism (principal); L89.893 Pressure ulcer of other site, stage 3; L89.154 Pressure ulcer of sacral region, stage 4; G92 Toxic encephalopathy; N18.6 End stage renal disease; E43 Unspecified severe protein-calorie malnutrition; I50.32 Chronic diastolic (congestive) heart failure; M46.28 Osteomyelitis of vertebra, sacral and sacrococcygeal region; Z68.41 Body mass index [BMI] 40.0-44.9, adult; I13.2 Hypertensive heart and chronic kidney disease with heart failure and with stage 5 chronic kidney disease, or end stage renal disease; K74.60 Unspecified cirrhosis of liver; J44.9 Chronic obstructive pulmonary disease, unspecified; F41.9 Anxiety disorder, unspecified; M10.9 Gout, unspecified; G47.33 Obstructive sleep apnea (adult) (pediatric); I27.20 Pulmonary hypertension, unspecified; G35 Multiple sclerosis; M79.81 Nontraumatic hematoma of soft tissue; E66.01 Morbid (severe) obesity due to excess calories; E11.69 Type 2 diabetes mellitus with other specified complication; E11.51 Type 2 diabetes mellitus with diabetic peripheral angiopathy without gangrene; N30.90 Cystitis, unspecified without hematuria; B96.20 Unspecified Escherichia coli [E. coli] as the cause of diseases classified elsewhere; D63.8 Anemia in other chronic diseases classified elsewhere; E11.22 Type 2 diabetes mellitus with diabetic chronic kidney disease; I70.202 Unspecified atherosclerosis of native arteries of extremities, left leg; B37.9 Candidiasis, unspecified; S90.01XA Contusion of right ankle, initial encounter; S80.11XA Contusion of right lower leg, initial encounter; R65.20 Severe sepsis without septic shock; Z79.82 Long term (current) use of aspirin; Z87.891 Personal history of nicotine dependence; Z82.49 Family history of ischemic heart disease and other diseases of the circulatory system; Z87.81 Personal history of (healed) traumatic fracture; Z79.899 Other long term (current) drug therapy; Z90.49 Acquired absence of other specified parts of digestive tract; Z90.710 Acquired absence of both cervix and uterus
CPT/HCPCS: 10879; 32100; 50010; 50101; 50386; 50403; 56528; 62110; 62900; 65130; 70005

== ENCOUNTER 2018-11-14 05:31 | Day surgery (SDC) | payer OTHER ==
[2018-11-14] VITALS (11 sets, daily range): BP systolic 95–123; BP diastolic 35–78
[~2018-11-14] VITALS: Ht 152.4 cm; Wt 91.7 kg
[~2018-11-14 05:31] MED LIST changes: +ALMACONE-2 LIQ355 ML PO; +AMITIZA 24 MCG24 MC1 PO; +ARANESP25 MCG/0.4 SUBQ; +ARTIFICIAL TEA1 EAC1 INTRAOCULR; +BANOPHEN25 M1 PO; +CLOPIDOGREL75 MG PO; +IBUPROFEN 400400 M2 PO; +MELATONIN5 M1 PO; +MILK OF MA2400 MG/10 PO; +NEPHRO-VITE TA0.8 MG PO; +NYSTATIN100000 UNI PO; +PEPCID20 MG PO; +PLAVIX 75 MG TA75 M1 PO; +PROSOURCE NO CA30 ML PO; +REGLAN 10 MG TA10 MG PO; +RENA-VITE TABL0.8 MG PO; +RENVELA800 MG PO; +ROCEPHIN 11 GM/1001 IVPB; +SSD CREAM 1% 5050 GM TOP; +VANCO 500500 MG/100 IVPB
[2018-11-14 08:06] LABS: HEMATOCRIT 27.9 % (37.0-47.0); HEMOGLOBIN 8.8 gm/dL (12.0-15.0); MCH 28.4 pg (26.0-34.0); MCHC 31.5 g/dL (28.0-37.0); MCV 90.3 fL (80.0-100.0); RBC 3.09 mil/uL (4.20-5.00); RDW 21.1 % (10.5-14.5); WBC 12.2 thou/uL (4.0-11.0)
--- NOTE | 2018-11-14 08:20 | EKG ---
[place] [address] [facility] [place] [address] ELECTROCARDIOGRAM REPORT Name: RADHA ALEMAN Room #: 150-2 [facility]#: [id number] ������������������ Admission: 11/14/18 ������������������ Attend Phys: Oscar Paulino MD, F Discharge: ������������������ Date of : 50 Report #: [id number] ����������������������������������������������������������������� [id number] THIS REPORT FOR: //name// [facility] Test Date: 2018-11-14 Test Time: 07:33:57 Pat Name: RADHA ALEMAN Department: Room: [facility] Gender: F Gambling Broker: MIRIAM : 1950 Requested By: Oscar Paulino Order Number: [id number] MD: Camden Rudolph Measurements Intervals [place] Rate: 75 P: 80 [place]: 180 QRS: -47 QRSD: 138 T: 42 QT: 433 QTc: 484 Interpretive Statements Sinus rhythm Ventricular premature complex RBBB and LAFB Compared to ECG 10/19/2018 07:17:15 Ventricular premature complex(es) now present Junctional rhythm no longer present Electronically Signed On 11-14-2018 8:20:41 PAPER HANDLER by Camden Rudolph [email or web address] ��������������������������������������������� <ELECTRONICALLY SIGNED> ���������������������������������������� By: Camden Rudolph MD, [facility] ��������������������������������������������� 11/14/18 0820 0733 Camden Rudolph MD, [facility] /EPI
[2018-11-14 08:22] LABS: CALCIUM 9.6 mg/dL (8.5-10.1); CREATININE 5.7 mg/dL (0.6-1.0); POTASSIUM 4.7 mmol/L (3.5-5.1)
[2018-11-14 08:28] LABS: ALBUMIN 2.4 g/dL (3.4-5.0); TOTAL BILIRUBIN 0.3 mg/dL (<0.1-1.0); TOTAL PROTEIN 7.4 g/dL (6.4-8.2)
--- NOTE | 2018-11-14 16:31 | NUR ---
ADMITTED PT FROM SURGERY UNDER 'S CARE. AXOX4. PT WENT UNDER I&D OF THE SACRAL WOUND AND DIVERTING COLOSTOMY. PRESENT WITH SUPRAPUBIC CATHETER. PT HAS DIALYSIS SHUNT ON RUE. THRILL AND BRUIT PRESENT. LIBM ALERT APPLIED. PT HAS TWO IVs, BP IS OBTAINED ON RLEG TO PROTECT DIALYSIS ACCESS AND IV ACCESS. DRESSING IN SACRUM IS INTACT AND DRY. COLOSTOMY SITE HAS NOT PRODUCED ANY STOOL YET. PER PROTOCOL, HEEL PROTECTING BOOTS AND LOW AIRLOSS PUMP APPLIED TO MAINTAIN SKIN INTEGRITY. PT NOTED WITH MULTIPLE ACTIVE AND HEALED WOUNDS. BILATERAL HEELS ARE HEALED WITH BROWN CRUSTS. BILATERAL CALVES HAVE HEALED SKIN TEARS/ULCERS. AND BLE ARE HECTOR DRY. SKIN PROTECTANT CREAM APPLIED. NO S/S ACUTE DISTRESS NOTED OR REPORTED AT THIS TIME. WILL CONT TO MONITOR CLOSELY FOR ANY CHANGES IN CONDITION.
--- NOTE | 2018-11-14 19:03 | O ---
[facility] [place] [address] OPERATIVE REPORT Name: RADHA ALEMAN Room #: 461-P [facility]..#: [id number] Admission: 11/14/18 ������������������ Attend Phys: Oscar Paulino MD, F Discharge: ������������������ Date of : 50 Report #: [id number] THIS REPORT FOR: //name// CC: MARU Paulino DATE OF SERVICE: 11/14/2018 SURGEON: Oscar Paulino MD PSYCHOLOGY CLINICIAN: None. PREOPERATIVE DIAGNOSES: 1. Large stage IV sacral decubitus ulcer with probable osteomyelitis. 2. Multiple sclerosis. 3. Sleep apnea. 4. Morbid obesity. 5. Type 2 diabetes mellitus. 6. Cirrhosis. 7. Hypertension. 8. Stage IV chronic kidney disease. 9. Chronic obstructive pulmonary disease. 10. Congestive heart failure. 11. Chronic anemia. POSTOPERATIVE DIAGNOSES: 1. Large stage IV sacral decubitus ulcer with probable osteomyelitis. 2. Multiple sclerosis. 3. Sleep apnea. 4. Morbid obesity. 5. Type 2 diabetes mellitus. 6. Cirrhosis. 7. Hypertension. 8. Stage IV chronic kidney disease. 9. Chronic obstructive pulmonary disease. 10. Congestive heart failure. 11. Chronic anemia. PROCEDURES: 1. Laparoscopic-assisted diverting loop transverse colostomy. 2. Laparoscopic lysis of adhesions. 3. Excisional and ultrasonic debridement of stage 4 sacral decubitus ulcer including skin and subcutaneous tissue, muscle and bone (starting dimension 195 cm2; ending dimension 575 cm2). [facility] [address] [place] [address] OPERATIVE REPORT Name: RADHA ALEMAN Cale Room #: 461-P [facility]#: [id number] Admission: 11/14/18 ������������������ Attend Phys: Oscar Paulino MD, F Discharge: ������������������ Date of : 50 Report #: [id number] 4. Application of Interfyl (Human connective tissue matrix) skin substitute -- 575 cm2. ANESTHESIA: General endotracheal anesthesia and local anesthetic. ESTIMATED BLOOD LOSS: 50 mL. SPECIMEN: Sacral skin, subcutaneous tissue, and muscle, sacral bone. COMPLICATIONS: None appreciated. INDICATION FOR PROCEDURE: This is a 68-year-old female patient with the above-listed comorbidities who is known to have a large stage 4 sacral decubitus ulcer. She underwent debridement of her decubitus ulcer on 10/06/2018. She was then transferred to [facility] and has had difficulty with wound healing. She has had fecal soilage/contamination of the wound, which has contributed to difficulty with wound healing. She presents today for excisional and ultrasonic debridement of her stage IV decubitus ulcer as well as creation of a diverting colostomy. OPERATIVE FINDINGS: The wound measurements were 15 cm wide x 13 cm long initially. As undermining of the tissue was present, the ending wound dimensions were 23 cm long x 25 cm wide. Fibrinous exudate was present over a good portion of the wound and covering the sacral bone. There appeared to be bony involvement as well. There was no significant malodorous drainage or abscesses encountered. Laparoscopically, the patient had significant intraabdominal adhesions from her previous operations. Lysis of adhesions was necessary in order to mobilize the transverse colon enough to bring up a loop without tension. After creation of the double barrel stoma, both the afferent and efferent limbs of the colostomy were palpably patent beyond the fascial level. DESCRIPTION OF PROCEDURE IN DETAIL: After the risks, benefits, and expectations of the operation were discussed in detail with the patient, informed consent was obtained. The patient was identified in the preoperative holding area. She was given IV antibiotics as documented in the chart in line with [facility] metrics. The patient was then taken to the Operating Room and she was placed in the supine position. SCDs were placed to the patient's bilateral lower extremities and pneumatic compression was initiated. The patient was given IV sedation and she was intubated without incident. After securing to the bed, her sacral area was prepped and draped in the standard sterile fashion. A time-out was performed to identify the correct patient and procedure. Local anesthetic was infiltrated into the skin and subcutaneous tissue in the area of the planned incision. The wound was digitally palpated and undermining [address] [address] OPERATIVE REPORT Name: RADHA ALEMAN Room #: 461-P [facility] M.R.#: [id number] Admission: 11/14/18 ������������������ Attend Phys: Oscar Paulino MD, F Discharge: ������������������ Date of : 50 Report #: [id number] was present nearly circumferentially. A sharp #10 blade scalpel was used to make an incision through skin and electrocautery was used to dissect through the subcutaneous tissue down to healthy bleeding tissue to excise the areas of necrosis and fibrinous exudate. Additional fibrinous exudate was present directly overlying the bone. This was sharply excised as well. Bleeding points were made hemostatic with electrocautery. There was bony involvement as the outer table was jagged and the marrow was soft and mushy. Cultures were taken to be sent for aerobes, anaerobes and fungus. The rongeur was then used to remove the outer table of bone of the sacrum and a rasp was used to file the bone down to smooth out the edges. The rectum was ballottable and there was no penetration into the rectum during the debridement. The NBO TV ultrasonic debridement device was then used to mechanically debride the entire surface area of the wound. There was good given cavitation of the nonviable cells. Bleeding points were made hemostatic thereafter. Local anesthetic was infiltrated into the bed of the wound. After ensuring hemostasis, Interfyl 4.5 mL was applied to the surface area of the wound, spread out evenly with the back end of a forcep. Adaptic and a normal saline wet-to-dry Kerlix were used to dress the wound. ABD pads and tape were then applied. The patient was then placed in the supine position. Her abdomen was prepped and draped in the standard sterile fashion. Local anesthetic was infiltrated into the skin and subcutaneous tissue in the area of the planned colostomy. A small transverse incision was made and a 5 mm Visiport was placed intraperitoneally with a 0-degree angled laparoscope. Pneumoperitoneum was achieved with insufflation of carbon dioxide to 15 mmHg. Significant intraabdominal scar tissue was present, much more than anticipated. The camera was used to bluntly take down loose scar tissue. The umbilicus was freed of tissue, where significant adhesions were present. A bare area was chosen for placement of a 5 mm port under direct visualization after local anesthetic was infiltrated into the skin and subcutaneous tissue and an appropriately sized incision was made. An additional 5-mm port was placed in the left upper quadrant of the abdomen using the same technique. Using these two working ports, I was able to take down enough scar tissue to identify the ascending and transverse colon near the hepatic flexure. The colon was followed to an area that was chosen for the diverting loop transverse colostomy. Scar tissue was present that required division in order to mobilize the colon adequately and create a tension-free colostomy. A grasper was placed through the right-sided 5 mm port and the colon chosen for the colostomy was grasped. The abdominal cavity was then desufflated and the other ports were removed. A circular skin incision was made around the 5 mm port in the right mid abdominal area. Dissection was carried down to the anterior rectus sheath fascia. A cruciate incision was made in the fascia. The underlying rectus muscle was split longitudinally. The posterior rectus sheath was then opened [address] [address] OPERATIVE REPORT Name: RADHA ALEMAN Room #: 461-P [facility].#: [id number] Admission: 11/14/18 ������������������ Attend Phys: Oscar Paulino MD, F Discharge: ������������������ Date of : 50 Report #: [id number] and stretched to nearly 3 fingerbreadths. The transverse colon was then delivered through the incision. The colon was opened longitudinally. Phylicia type 3-0 Vicryl sutures were placed at the 12, 3, 6, and 9 o'clock positions. Short runs of 3-0 Vicryl suture were then used to completely mature the remainder of the colostomy. After doing so, digital palpation revealed patency beyond the fascial level for both the afferent and efferent limbs. The skin was cleansed and a 2-piece colostomy appliance was placed. The 5-mm port site skin incisions were closed with interrupted subcuticular 4-0 Monocryl sutures and Dermabond. The patient tolerated the procedure well. She was awakened, extubated, and taken to Recovery Room in stable condition with no apparent intraoperative complications. ��������������������������������������������� <ELECTRONICALLY SIGNED> ���������������������������������������� By: Oscar Paulino MD, FACS ��������������������������������������������� 11/14/18 1903 [id number] 1818 Oscar Paulino MD, FACS /nt
[2018-11-15 05:22] VITALS: BP 101/60
--- NOTE | 2018-11-15 06:01 | NUR ---
ASSUME CAR E1900. PT/ VITALS STABLE. INTERMITTENT INCISIONAL PAIN.POOR ACTIVITY TOLERANCE. ASSESSEMENT CHARTED. PROGRESSING SLOWLY TO PLAN OF CARE. PLAN IS TO MONITOR WOUND HEALING AND ADMINISTER ABX PRESCRIBED. MONITOR FOR INFECTION AND BLEEDING/MONITOR KIDNEY FUNCTION AND FOLLOW UP WITH DIALYSIS. WILL CONTINUE TO FOLLOW WITH POC
[2018-11-15 06:36] LABS: ABSOLUTE NEUTROPHILS 11.8 thou/uL (1.4-8.2); BASOPHILS 2.7 % (0.0-2.0); EOSINOPHILS 1.1 % (0.0-3.0); HEMATOCRIT 23.9 % (37.0-47.0); HEMOGLOBIN 7.5 gm/dL (12.0-15.0); LYMPHOCYTES 11.5 % (24.0-44.0); MCH 28.2 pg (26.0-34.0); MCHC 31.3 g/dL (28.0-37.0); MCV 89.8 fL (80.0-100.0); MONOCYTES 9.1 % (1.0-8.0); PLATELET COUNT 271 thou/uL (150-400); POLYS 75.6 % (36.0-66.0); RBC 2.66 mil/uL (4.20-5.00); RDW 20.4 % (10.5-14.5); WBC 15.6 thou/uL (4.0-11.0)
[2018-11-15 06:50] LABS: CALCIUM 8.6 mg/dL (8.5-10.1); POTASSIUM 5.5 mmol/L (3.5-5.1)
[2018-11-15 06:52] LABS: CREATININE 6.9 mg/dL (0.6-1.0)
[2018-11-15 07:46] LABS: ANISOCYTOSIS 2+
[2018-11-15 08:41] VITALS: BP 89/61
--- NOTE | 2018-11-15 14:19 | NUR ---
WOUND CONSULT: PT. WAS SEEN TODAY BY DR. BOURGEOIS AND MYSELF. PT. IS WELL KNOWN TO THE WOUND CARE TEAM. PT. HAS SUGICAL DEBRIDEMENT OF SACRAL STAGE 4 PRESSURE ULCERS YESTERDAY ALONG WITH COLOSTOMY PLACEMENT. PT. ALSO HAS UNSTAGABLE PRESSURE ULCERS TO HER LEFT LATERAL CALF, LEFT HEEL AND RIGHT UPPER CALF. PT. HAS VASCULAR WOUNDS TO HER RIGHT TOES BUT, THEY ARE STABLE DRY ESCHAR AT THIS TIME. NO WOUNDS SHOW ANY SIGNS OF INFECTION. RECOMMENDATIONS: WOUND CARE TO LEFT LATERAL CALF, LEFT HEEL, RIGHT UPPER CALF AND RIGHT TOES: GENTLY CLEANSE WITH WOUND CLEANSER OR NORMAL SALINE, PAINT WITH BETADINE, LEAVE OPEN TO AIR, COMPLETE CARES DAILY. WOUND CARE TO SACRUM: GENTLY CLEANSE AREA WITH WOUND CLEANSER OR NORMAL SALINE, PACK WITH DAKIN MOIST KERLIX, COVER WITH ABD, SECURE WITH KERLIX AND TAPE, COMPLETE CARES BID. TURN Q2 HOURS KEEP PT. OFF WOUNDS MUCH POSSIBLE KEEP ON VALENTINO MATRESS. PT. AND STAFF NURSE WERE INSTRUCTED ON PLAN OF CARE.
--- NOTE | 2018-11-15 14:20 | NUR ---
DISCHARGE ORDERS RECEIVED. PATIENT DISCHARGING TO [facility]. CHART COPIED PER OPERATIONS EXPERT. ORDERS FAXED TO [facility]/ADMISSIONS, VERIFIRED RECEIVED. [facility] TO TRANSPORT PATIENT, 1800 HOURS. DAUGHTER ARJUN NOTIFIED. UNIT RN NOTIFIED AND CONTACT NUMBER PROVIDED FOR REPORT. UNIT CM/SW AWARE.
--- NOTE | 2018-11-15 20:20 | NUR ---
Pt was taken to dialysis today, 2L of fluids removed. Wound dressing changed for scaral area and wound care done for the extremities. Offloader boots applied. DC orders given called out report to [facility]. When trasport came, pt claims to have had a tablet, Charge nurse informed security nothing was endoersed, room checked thrice, admission documentation had not indicated a tablet was present upon admission. Pt has been transported to [facility].
--- NOTE | 2018-11-16 09:58 | DSS ---
[facility] [place] [address] SHORT STAY SUMMARY Name: RADHA ALEMAN Room #: DEP [facility]..#: [id number] Admission: 11/14/18 ������������������ Attend Phys: Oscar Paulino MD, F Discharge: 11/15/18 ������������������ Date of : 50 Report #: [id number] THIS REPORT FOR: //name// CC: Wesley Paulino DATE OF SERVICE: 11/14/2018 CHIEF COMPLAINT: Wounds. HISTORY OF PRESENT ILLNESS: The patient is a 68-year-old female who was admitted for surgical debridement of wounds from [facility]. She had been receiving bedside wound care with antibiotics and a wound VAC with supportive dialysis without improvement. Her wounds had at times contamination from fecal matter and the plan was for elective placement of diverting colostomy and debridement of wounds. PAST MEDICAL HISTORY: End-stage renal disease, on hemodialysis, multiple sclerosis, neurogenic bladder with suprapubic catheter, anemia of chronic disease, bilateral leg wounds, sacral decubitus wound and debility. PAST SURGICAL HISTORY: Unknown. FAMILY HISTORY: Noncontributory. SOCIAL HISTORY: No chronic alcohol or tobacco use. ALLERGIES: No known drug allergies. MEDICATIONS: Benadryl, Rocephin, nystatin, albuterol, Plavix, Aranesp, aspirin, hydrocodone, Tylenol, Lexapro, Pepcid, NovoLog with meals, Levemir at bedtime, folic acid, Nephro-Johnna, vitamin C, allopurinol, melatonin. REVIEW OF SYSTEMS: Denies headache, chest pain, shortness of breath, abdominal pain, nausea, vomiting, diarrhea, constipation, dysuria, syncope. OBJECTIVE: VITAL SIGNS: Temperature 36.8, pulse 88, respirations 13, blood pressure 89/61, O2 sat 100% on 2 liters. GENERAL: She is awake and alert on hemodialysis. HEAD AND NECK: Unremarkable. LUNGS: Clear. HEART: Regular. ABDOMEN: Soft, normoactive bowel sounds, suprapubic catheter, a new colostomy in place. EXTREMITIES: No edema. [address] [address] SHORT STAY SUMMARY Name: ASHRADHA E Room #: [facility].#: [id number] Admission: 11/14/18 ������������������ Attend Phys: Oscar Paulino MD, F Discharge: 11/15/18 ������������������ Date of : 50 Report #: [id number] HOSPITAL COURSE: The patient was admitted and underwent elective surgical diverting colostomy and decubitus wound debridement. See the operative note from Dr. Paulino. She was watched in observation overnight with no new issues. The following day, she underwent hemodialysis without incident. DISPOSITION: She will return to [facility] for ongoing wound care, bedside hemodialysis. She will continue all her medications, renal diet, bed rest, wound care and under the services of Dr. Clark Costello. ��������������������������������������������� <ELECTRONICALLY SIGNED> ���������������������������������������� By: Lucho Neal MD ��������������������������������������������� 11/16/18 0958 [id number] Lucho Neal MD /[place]
--- NOTE | 2018-11-20 13:06 | PATH ---
[facility] [place] [address] PATHOLOGY RPT PROCEDURE Name: RADHA ALEMAN Room #: DEP [facility] MJaredR.#: [id number] ������������������ Admission: 11/14/18 ������������������ Date of : 50 Discharge: 11/15/18 Report #: [id number] Path Case #: [id number] [facility] Accession Number: [id number] . 01 Material submitted: . PART A: SACRAL WOUND PART B: SACRAL BONE . 01 Clinical history: . Decubitus ulcer . 02 Diagnosis: A. Sacral wound, incision and drainage: - Ulceration along with fibrinoid degeneration and marked acute inflammation extending into underlying subcutaneous tissue. - Adjacent squamous epithelium showing reactive changes. . B. Bone, sacral bone, incision and drainage: - Reactive and remodeled bone surrounded by acute and chronic inflammation, consistent with wound tissue. - Fragments of dense fibrous tissue showing marked acute inflammation associated with abscess formation and bacterial aggregates. (IUV/db; 11/16/2018) LBQ/11/16/2018 . 02 Electronically signed: . Enedelia Hawkins MD, Pathologist NPI- [id number] . 01 Gross description: . A. Received in formalin labeled "Radha Aleman, sacral wound," is a segment of yellow-valencia, partially necrotic-appearing soft tissue with attached lopez-valencia, partially necrotic-appearing skin measuring 10.8 x 9.5 x 7.1 cm in greatest dimensions. Serial sectioning reveals firm, bright yellow to partially necrotic-appearing cut surfaces. Focal hemorrhage is noted within the necrotic tissue, as well as multiple cystic pockets filled with translucent, light green-valencia fluid. Last Sawyer tissue is submitted in cassettes A1 and A2. . B. Received in formalin labeled "Radha Aleman, sacral bone," are multiple irregular fragments of lopez-valencia soft tissue admixed with blood clot and a single possible bone fragment measuring 4.4 x 2.8 x 1.4 cm in aggregate dimensions. Serial sectioning reveals yellow-valencia cut surfaces. Last Sawyer tissue is submitted in cassette B1, following light decalcification. (DAC; 11/15/2018) XNM/X[address] [address] PATHOLOGY RPT PROCEDURE Name: RADHA ALEMAN Cale Room #: DEP [facility] Noe#: [id number] ������������������ Admission: 11/14/18 ������������������ Date of : 50 Discharge: 11/15/18 Report #: [id number] Path Case #: [id number] . 02 Pathologist provided ICD-10: L89.159 . 02 CPT . 231062, [id number], [id number] Specimen Comment: A courtesy copy of this report has been sent to Specimen Comment: [phone], . Specimen Comment: Report sent to / DR BLISS Specimen Comment: A duplicate report has been generated due to demographic updates. Performed at: [address], [place] [id number] MD Michael Orozco MD Phone: [phone] Performed at: [address] [id number] MD Enedelia Hawkins MD Phone: [phone]
--- NOTE | 2018-12-14 07:50 | HC ---
[facility] [place] [address] CONSULTATION Name: RADHA ALEMAN Room #: DEP [facility]..#: [id number] Admission: 11/14/18 ������������������ Attend Phys: Oscar Paulino MD, F Discharge: 11/15/18 ������������������ Date of : 50 Report #: [id number] THIS REPORT FOR: //name// CC: Wesley Pauilno REASON FOR ADMISSION: Debridement of her sacral decubitus. REASON FOR CONSULTATION: End-stage renal disease. HISTORY OF PRESENT ILLNESS: This is a very well-known patient to me. She is a 68-year-old with long-standing diabetes mellitus and hypertension, multiple sclerosis who is wheelchair bound. She was transferred from [facility] last month to [facility] for continuation of her wound care, sacral decubitus ulcers. She has progressed with her kidney disease and was initiated on dialysis. She is being dialyzed every Tuesday, Tuesday and Tuesday. She got transferred back to the [facility] for debridement of her wounds. She has no active renal issues. Consult was placed for the renal team to continue with her usual hemodialysis regimen. PAST MEDICAL HISTORY: 1. Chronic sacral and heel ulcers 2. Multiple sclerosis. 3. Hypertension. 4. Obstructive sleep apnea. 5. Diabetes mellitus. 6. End-stage renal disease maintained on hemodialysis. FAMILY HISTORY: Significant for diabetes and hypertension. SOCIAL HISTORY: She resides at the [facility]. No drug or alcohol abuse. MEDICATIONS: 1. Benadryl: 2. Plavix. 3. Aspirin. 4. Insulin. 5. Folic acid. 6. Ascorbic acid. 7. Darbepoetin. 8. Allopurinol. PAST SURGICAL HISTORY: 1. AV fistula. 2. Multiple debridements of her wounds. 3. Suprapubic catheter. [facility] [address] [place] [address] CONSULTATION Name: RADHA ALEMAN Room #: DEP [facility] Noe#: [id number] Admission: 11/14/18 ������������������ Attend Phys: Oscar Paulino MD, F Discharge: 11/15/18 ������������������ Date of : 50 Report #: [id number] REVIEW OF SYSTEMS: GENERAL: Significant for weakness and wheelchair bound. CARDIOVASCULAR: No chest pain or palpitation. PULMONARY: No cough or hemoptysis. GASTROINTESTINAL: No nausea or vomiting. GENITOURINARY: She has a chronic suprapubic catheter. She is not making any urine. SKIN: As per the history of present illness. PHYSICAL EXAMINATION: GENERAL: She is alert, oriented, in no apparent distress. VITAL SIGNS: Temperature 36.6, pulse rate is 70 and blood pressure 101/60. HEAD AND NECK: No jugular venous distention. CHEST: No crackles. CARDIOVASCULAR: No rub. ABDOMEN: Soft and nontender. LOWER EXTREMITIES: Bilateral heel ulcer. Edema present. Sacral area, not examined. LABORATORY DATA: Laboratory values reviewed. White blood cell count 15.6 and hemoglobin 7.5. Sodium 135 and potassium 5.5. ASSESSMENT, IMPRESSION, PLAN: 1. End-stage renal disease. 2. Hyponatremia. 3. Hyperkalemia. 4. Leukocytosis. 5. Multiple sclerosis. 6. Post sacral debridement. 7. We will arrange for the patient to have her usual hemodialysis every Tuesday, Tuesday and Tuesday. Fluid restrictions. 6. Defer the management of her diabetes mellitus, wound care to the admitting team, wound care team and surgical team. ��������������������������������������������� <ELECTRONICALLY SIGNED> ���������������������������������������� By: Josep Monsalve MD ��������������������������������������������� 12/14/18 0750 0913 1239 Josep Monsalve MD /nt
== END 2018-11-15 18:48 ==
LOC: OR 05:31 → TBA 05:31 → OR 11:28 → 4W 12:31 → OR 11-15 18:48
PROVIDERS: Surgery
DX: L89.154 Pressure ulcer of sacral region, stage 4 (principal); E66.01 Morbid (severe) obesity due to excess calories; I13.2 Hypertensive heart and chronic kidney disease with heart failure and with stage 5 chronic kidney disease, or end stage renal disease; N18.6 End stage renal disease; E11.22 Type 2 diabetes mellitus with diabetic chronic kidney disease; I50.9 Heart failure, unspecified; J44.9 Chronic obstructive pulmonary disease, unspecified; D64.89 Other specified anemias; K74.60 Unspecified cirrhosis of liver; G47.33 Obstructive sleep apnea (adult) (pediatric); G35 Multiple sclerosis; Z83.3 Family history of diabetes mellitus; Z82.49 Family history of ischemic heart disease and other diseases of the circulatory system; Z79.899 Other long term (current) drug therapy; Z79.4 Long term (current) use of insulin; Z79.82 Long term (current) use of aspirin; Z98.890 Other specified postprocedural states; Z99.2 Dependence on renal dialysis
CPT/HCPCS: 10047; 32100; 50010; 50101; 50249; 50386; 50403; 50555; 50962; 52265; 53307; 54118; 56462; 56524; 56526; 57092; 57119; 57120; 57192; 62110; 62900; 70005

== ENCOUNTER 2018-11-23 18:33 | Inpatient (IN) | payer OTHER ==
[~2018-11-23] VITALS: Ht 152.4 cm; Wt 89.4 kg
--- NOTE | ~2018-11-23 | D ---
[facility] [place] [address] DISCHARGE SUMMARY Name: RADHA ALEMAN Room #: 358-P [facility] .R.#: [id number] Admission: 11/23/18 ������������������ Attend Phys: Joel Knox Discharge: 12/06/18 ������������������ Date of : 50 Report #: [id number] THIS REPORT FOR: //name// CC: Wesley Costello DATE OF SERVICE: 12/06/2018 FINAL DIAGNOSES: 1. Colonic obstruction. 2. End-stage renal disease. 3. Gastrointestinal bleed. 4. Obesity with BMI above 30. 5. Peripheral artery disease. 6. Stage 4 sacral wound. 7. Anemia of chronic disease. 8. Paroxysmal supraventricular tachycardia. HOSPITAL COURSE: The patient was admitted for abdominal pain. Initial working diagnosis was small-bowel obstruction. She was treated conservatively with NG tube, bowel decompression and n.p.o. status with bowel rest. She continued on dialysis and other supportive measures with wound care and antibiotics. Multiple consultants followed her case. Ultimately, Dr. Paulino took her to the operating room, which he performed an exploratory laparotomy. This revealed colonic obstruction at the level of the recently placed colostomy along with some adhesions. Please see his operative note. Post-procedure, she took 3-5 days for her bowel function to gradually open up. She continued with antibiotics, dialysis, TPN and other supportive measures. Ultimately, the team felt she was ready to resume her LTAC level of care and begin oral intake. DISPOSITION: She will be transferred back to [facility] for ongoing bedside dialysis, advancement of diet, wound care, antibiotics and supportive measures. I have signed and performed all her medications orders and medications for discharge at the time of transfer. ��������������������������������������������� ���������������������������������������� By: ��������������������������������������������� 1045 1058 Lucho Neal MD /nt
[~2018-11-23 18:33] MED LIST changes: -CARDIZEM CD 18180 M3 PO; -DAKIN'S473 M2 TOP; -EPOGEN3000 UNIT/ IV PUSH; -VANCOCIN 125 M125 M1 PO
[2018-11-23 21:12] VITALS: BP 151/76
[2018-11-23] MEDS ORDERED: CARDIZEM CD 18180 M3 PO (22:14)
[2018-11-23] MEDS ORDERED: EPOGEN3000 UNIT/ IV PUSH (22:16)
[2018-11-23] MEDS ORDERED: VANCOCIN 125 M125 M1 PO (22:18)
[2018-11-23] MEDS ORDERED: DAKIN'S473 M2 TOP (22:19)
--- NOTE | 2018-11-24 00:33 | NUR ---
PATIENT WAS A NEW ADMIT TO THE UNIT THIS SHIFT. SHE ARRIVED VIA EMS AND WAS A DIRECT ADMIT OF DR. BLISS. PATIENT IS MOSTLY ORIENTED AND ABLE TO PARTICIPATE IN ADMISSION. DR BLISS CALLED FOR ORDERS. NG TUBE PLACED WITH HELP FROM HOUSE SUP AND CHARGE NURSE. PATIENTS WOUNDS PICTURES TAKEN. NURSE TO COMPLETE ADMISSION AND INITIATE CARE PLAN.
[2018-11-24 04:00] VITALS: BP 128/69
[2018-11-24 07:27] VITALS: BP 146/69
--- NOTE | 2018-11-24 08:45 | NUR ---
PT RESTING IN BED. BLOOD SUGAR CHECKED WAS 199 S/S 3 UNITS GIVEN. TO ABD REQUESTED. NG IN PLACE TELE MONITORED. WOUND CARE COSULT SPOKE WITH WOUND CARE NURSE WOUND CARE TO SEE TODAY.
--- NOTE | 2018-11-24 11:00 | NUR ---
PLACED CALL TO DR TOYA BLISS / DR JOLLY FAMILY AT BEDSIDE AND REQUESTING TIME DOCTOR WILL MAKE ROUNDS AND FOR PRN PAIN MED.
--- NOTE | 2018-11-24 11:07 | NUR ---
RECIEVED CALL FROM DR JOLLY AT THIS TIME.THIS NURSE RELAYED PATIENTS FAMILY REQUEST FOR PRN PAIN MED AND ALSO WHEN DOCTOR WOULD MAKE ROUNDS. HE STATED HE WOULD TAKE CARE OF BUT GAVE THIS NURSE NO NEW ORDERS.
--- NOTE | 2018-11-24 11:17 | NUR ---
Nutrition: assess d/t consult for wound. Pt admitted for SBO. Was previously admitted in October. Pt had surgical debridement of st. 4 sacral pressure ulcer on Nov 14. Currently NPO. Pt was sleeping during attempted visit. Wt hx shows 70-80 lb loss in 3 years, but stable weight over past year. Pt previously liked Cece collins, will reorder. Otherwise, consider low risk.
[2018-11-24 12:32] LABS: HEMATOCRIT 24.6 % (37.0-47.0); HEMOGLOBIN 8.1 gm/dL (12.0-15.0); MCH 29.1 pg (26.0-34.0); MCHC 32.7 g/dL (28.0-37.0); RBC 2.77 mil/uL (4.20-5.00); RDW 20.7 % (10.5-14.5); WBC 20.6 thou/uL (4.0-11.0)
[2018-11-24 12:43] LABS: ALBUMIN 1.9 g/dL (3.4-5.0); CREATININE 7.3 mg/dL (0.6-1.0); PHOSPHORUS 5.1 mg/dL (2.5-4.9); POTASSIUM 4.1 mmol/L (3.5-5.1)
--- NOTE | 2018-11-24 15:03 | NUR ---
PT IS GETTING DIAYLSIS AT THIS TIME NO PAIN NO RESP DISTRESS. WOUND CARE DOCTOR HERE NEW ORDERS TO BE PUT IN. DR JOLLY HERE AND PUT IN ORDERS INCLUDING PRN PAIN MED. ALSO DR. BOOKER HERE AND PUT IN ORDER FOR FLUIDS. BLOOD SUGARS MONITORED AND REMAINS ON TELE MONITOR.
--- NOTE | 2018-11-24 15:37 | NUR ---
INITIAL ASSESSMENT: Received consult. SW reviewed chart and spoke with nursing and attending physician. Pt was admitted from [facility] due to SBO. Pt has NG tube in place. Pt was discharged to [facility] on 11/15 from [facility]. Pt is a half-way care resident at [facility]. Pt is a chronic dialysis pt and goes to [facility] when at [facility]. SW met with pt at bedside. Introduced role of SW. Pt was receiving dialysis during SW visit. SW discussed plan is to return to [facility] when medically stable. Pt agreeable with discharge plan. No weekend discharge anticipated. SW is following to assist as needed with discharge planning.
--- NOTE | 2018-11-24 17:01 | NUR ---
WOUND CONSULT: PT. WAS SEEN TODAY BY DR. HERRERA AND MYSELF. PT. IS WELL KNOWN TO THE WOUND CARE TEAM. PT. HAS A STAGE 4 PRESSURE ULCER TO HER SACRUM, STAGE 2 TO LEFT BUTTOCK, DEEP TISSUE INJURY TO LEFT LOWER BACK AND STAGE 3 TO LEFT LATERAL CALF. NO SIGNS OR SYMPTOMS OF INFECTION ARE NOTED WITH ANY OF THESE WOUNDS. RECOMMENDATIONS: DAKIN'S DRESSING CHANGES AND PULSE LAVAGE TO SACRUM, COMPLETE DAILY ZGUARD CREAM TO LOWER BACK AND LEFT BUTTOCK, COMPLETE DAILY FOAM TO LEFT LATERAL CALF, COMPLETE M/W/F PT. AND STAFF NURSE WERE INSTRUCTED ON PLAN OF CARE.
--- NOTE | 2018-11-24 17:14 | NUR ---
PATIENTS HR UP TO 164 PT ALERT XS 3 OPENS EYES WHEN SPOKEN TO. CALL TO DR BOOKER ABOUT HR HE SAID TO TAKE OFF DIAYLSIS NO PRN MEDS FOR HEART RATE. NEXT DIAYLSIS WOULD USE DIFFERENT DIAYLSIZER. PT'S HR 154 AT 1715 B/P 123/73 TAKEN OFF DIAYLSIS.
[2018-11-24 19:28] VITALS: BP 117/74
[2018-11-25] VITALS (7 sets, daily range): BP systolic 104–136; BP diastolic 51–66
[2018-11-25 05:50] LABS: ABSOLUTE NEUTROPHILS 14.8 thou/uL (1.4-8.2); BASOPHILS 0.2 % (0.0-2.0); EOSINOPHILS 0.9 % (0.0-3.0); HEMATOCRIT 24.5 % (37.0-47.0); LYMPHOCYTES 7.3 % (24.0-44.0); MCH 28.5 pg (26.0-34.0); MCHC 32.6 g/dL (28.0-37.0); MCV 87.6 fL (80.0-100.0); MONOCYTES 7.4 % (1.0-8.0); PLATELET COUNT 376 thou/uL (150-400); POLYS 84.2 % (36.0-66.0); RBC 2.79 mil/uL (4.20-5.00); RDW 20.4 % (10.5-14.5); WBC 17.6 thou/uL (4.0-11.0)
--- NOTE | 2018-11-25 08:17 | H ---
[facility] [place] [address] HISTORY AND PHYSICAL Name: RADHA ALEMAN Room #: 358-P ADM IN M.R.#: [id number] Admission: 11/23/18 ������������������ Attend Phys: Joel Knox Discharge: ������������������ Date of : 50 Report #: [id number] THIS REPORT FOR: //name// CC: Wesley Costello DATE OF SERVICE: 11/24/2018 CHIEF COMPLAINT: Abdominal pain. HISTORY OF PRESENT ILLNESS: The patient was admitted from [facility] for evaluation of abdominal symptoms. She was complaining of pain and CT suggested a small-bowel obstruction. She was admitted late last night electively by Dr. Costello. PAST MEDICAL HISTORY: Multiple wounds, C. diff, osteomyelitis, end-stage renal disease. PAST SURGICAL HISTORY: She had a recent diverting colostomy and wound debridement. FAMILY HISTORY: Unknown. SOCIAL HISTORY: Unknown. ALLERGIES: None. MEDICATIONS: Please see the LTAC list. REVIEW OF SYSTEMS: Complaints of abdominal pain. No shortness of breath. PHYSICAL EXAMINATION: VITAL SIGNS: Per the nursing note. GENERAL: Awake, alert, in no distress. LUNGS: Clear. HEART: Regular. ABDOMEN: Distended, hypoactive bowel sounds. Colostomy in place. EXTREMITIES: No edema. Sacral wounds are dressed. ASSESSMENT: 1. Partial small-bowel obstruction. 2. End-stage renal disease. 3. Clostridium difficile colitis. 4. Sacral wound, status post debridement and diverting colostomy. PLAN: Have a renal, ID and wound care follow her as they know her from the [facility] [address] [place] [address] HISTORY AND PHYSICAL Name: RADHA ALEMAN Room #: 358-P ADM IN M.R.#: [id number] Admission: 11/23/18 ������������������ Attend Phys: Joel Knox Discharge: ������������������ Date of : 50 Report #: [id number] facility, n.p.o. for now and NG tube in place. I will ask Dr. Paulino to evaluate the CT findings. ��������������������������������������������� <ELECTRONICALLY SIGNED> ���������������������������������������� By: Lucho Neal MD ��������������������������������������������� 11/25/18 0817 1153 1201 Lucho Neal MD /nt
--- NOTE | 2018-11-25 09:49 | HC ---
[facility] [place] [address] CONSULTATION Name: RADHA ALEMAN Room #: 358-P ADM IN M.R.#: [id number] Admission: 11/23/18 ������������������ Attend Phys: Joel Knox Discharge: ������������������ Date of : 50 Report #: [id number] THIS REPORT FOR: //name// CC: Wesley oCstello DATE OF SERVICE: 11/24/2018 REASON FOR CONSULTATION: Evaluate leukocytosis in the setting of sacral decubitus and small bowel obstruction. HISTORY OF PRESENT ILLNESS: The patient was a 68-year-old with longstanding history of multiple sclerosis, diabetes, end-stage renal disease, pulmonary hypertension and congestive heart failure who has had a large sacral decubitus that has required multiple surgical interventions. She was found to have Enterococcus and Morganella in her most recent culture results dating back to September. She has completed a 6-week course of IV antibiotic therapy at [facility]. Over the last 3 days, she has had further decline with leukocytosis and development of leukemoid reaction along with increased abdominal distention and nausea. Occasional episode of hemoptysis. She had had a right lower extremity stent placed for vascular disease. Ten days ago approximately, she had a diverting loop colostomy. Yesterday, she had worsening in her condition with abdominal pain and distention. She was found to have a small-bowel obstruction and was transferred back to [facility] for further intervention. No fever or chills. She had an episode of hypotension and hypoxia while on dialysis two days ago. She has been more confused. She is now on 4 liters of oxygen per nasal cannula. No pleuritic chest pain. She does remain on aspirin and Plavix following stent placement in the right lower extremity. Her wounds to her right foot had improved. The sacral wound continues to be large. REVIEW OF SYSTEMS: Ten-point review was negative other than what is described above. The patient was a very poor historian. ALLERGIES: None. MEDICATIONS: As noted on her DEC, now on enteral vancomycin and ceftriaxone. Previously was on vancomycin and meropenem at [facility] that was started 2 days ago. PAST MEDICAL HISTORY: Multiple sclerosis, obstructive sleep apnea, hypertension, diabetes, cirrhosis, chronic kidney disease now end stage, suprapubic catheter, COPD, congestive heart failure, anemia, anxiety, gout, recurrent urinary tract infection, left shoulder fracture, pneumonia, peripheral vascular disease and status post stenting in the right femoral. FAMILY HISTORY: Coronary artery disease. [address] [address] CONSULTATION Name: RADHA ALEMAN Room #: 358-P [facility] IN .R.#: [id number] Admission: 11/23/18 ������������������ Attend Phys: Joel Knox Discharge: ������������������ Date of : 50 Report #: [id number] SOCIAL HISTORY: Past smoker and no significant alcohol. PHYSICAL EXAMINATION: VITAL SIGNS: The patient was afebrile and hemodynamically stable. She was alert and appeared more responsive today than yesterday. She had oxygen in place for nasal cannula at 4 liters. HEENT: Eyes: Nonicteric with no conjunctivitis. Mouth without mucositis or lesion. NECK: Supple with no thyromegaly, mass or JVD. CHEST: Few crackles in the bases heard bilaterally. HEART: Regular without murmur, gallop or rub. ABDOMEN: Obese, distended, right mid to lower abdomen. Colostomy site with edematous mucosa. There was thin brown liquid in the bag. No formed stool. She was diffusely tender. No other hepatosplenomegaly or mass appreciated. She had an NG tube in place to suction. She had a suprapubic catheter with site no drainage. GENITOURINARY: External genitalia unremarkable with no ulcerations. RECTAL: Not performed. MUSCULOSKELETAL: Sacrum had an extensive large sacral decubitus that had been previously debrided. This encompassed her whole sacral area. There was minimal granulation tissue formation. The wound was fairly pale. There was no purulent drainage. There was palpable sacrum. Feet were warm. She had ecchymosis eschar to the plantar aspect of her distal third toe and fourth toe. Sensation was intact grossly. She was unable to give fine details. Mood normal. She had no other rashes noted. No palpable adenopathy. LABORATORY DATA: Laboratory studies reviewed. CT scan reviewed. Microbiology reports reviewed. IMPRESSION A 68-year-old with multiple sclerosis, large sacral decubitus with growth of penicillin susceptible enterococcus as well as Morganella species. One of the enterococci, although penicillin sensitive was vancomycin resistant. Sepsis and leukemoid reaction due to small-bowel obstruction most likely. She has a large sacral decubitus, which is reasonably stable at this time. Associated toxic metabolic encephalopathy improved today. She has diabetes, end-stage renal disease, congestive heart failure, morbid obesity and anemia of chronic disease. RECOMMENDATIONS: We will continue with meropenem. Follow serial CBCs. As the patient is being decompressed, hopefully small bowel will open up over time. We will also check chest x-ray. Blood and urine cultures were obtained at [facility], will be called for. ��������������������������������������������� <ELECTRONICALLY SIGNED> ���������������������������������������� By: Eduardo Costello MD ��������������������������������������������� 11/25/18 0949 1521 0140 Eduardo Costello MD /nt
--- NOTE | 2018-11-25 13:53 | NUR ---
ASSUMED PATIENT CARE AT 0700. A/O X3. PLEASANT TODAY. WOUND PICTURE TAKING WITH DRESSING CHANGED. DC TO [facility] AT 1300.
--- NOTE | 2018-11-25 17:53 | NUR ---
ASSUMED PATIENT CARE AT 0700. A/O X3. ST ON MONITOR. NOT REACTING TO PO CARDIEM AND IV METOPROLPL. STRATEGY DIRECTOR CONSULTED. GIVEN CARDIDEM BLOUS AND GTT. PATIENT CONVERTED TO NSR HR 68 AT 1500. HR BACK TO [address] PEREZ ORDERED RESTARTED CARDIZEM GTT PER PROTOCOL. NG TUBE WAS CLOTED BY PO MEDS IN THE AM. REINSERT NG TUBE TO LIS. NOT TOWARDS POC GOALS.
[2018-11-26 00:01] VITALS: BP 136/57
[2018-11-26 03:30] VITALS: BP 160/56; BP 160/596
--- NOTE | 2018-11-26 08:28 | HC ---
[facility] [place] [address] CONSULTATION Name: RADHA ALEMAN Room #: 358-P ADM IN M.R.#: [id number] Admission: 11/23/18 ������������������ Attend Phys: Joel Knox Discharge: ������������������ Date of : 50 Report #: [id number] THIS REPORT FOR: //name// CC: Wesley Costello DATE OF SERVICE: 11/25/2018 INDICATION: Tachycardia. HISTORY OF PRESENT ILLNESS: This is a 68-year-old female with history of end-stage renal disease, COPD, pulmonary hypertension, chronic diastolic heart failure, sleep apnea, multiple sclerosis, peripheral vascular disease, anemia, hypertension, who was transferred for a small-bowel obstruction. She had a recent surgery involving her colon and was transferred to [facility]. She developed symptoms consistent with a small-bowel obstruction and transferred for further management. During dialysis yesterday, the rhythm changed, SVT at 150 beats per minute. She was given Lopressor 5 mg IV, without any improvement. The patient is awake, denies any chest pain or dyspnea. Although, her responses are minimal. PAST MEDICAL HISTORY: End-stage renal disease, on dialysis; anemia; multiple sclerosis; diastolic heart failure. Echo from 11/2017 reveals normal LV systolic function and pulmonary hypertension. Chronic anemia, peripheral vascular disease with prior stent insertion. Multiple surgeries recently with a laparoscopic assisted diverting transverse colostomy. ALLERGIES: None. MEDICATIONS: At the [facility] was aspirin, Plavix, albuterol, diltiazem 180. SOCIAL HISTORY: Denies tobacco use. FAMILY HISTORY: Negative for premature CAD. REVIEW OF SYSTEMS: A full 10-point review of systems performed. Only the pertinent positives and negatives are described in HPI. PHYSICAL EXAMINATION: VITAL SIGNS: Blood pressure is 110/60, heart rate is 150 beats per minute. GENERAL APPEARANCE: An elderly appearing female, in no obvious distress. HEENT: Normocephalic, atraumatic. Oral mucosa dry. NECK: Supple. LUNGS: Clear to auscultation. CARDIAC: Tachycardic. S1, S2 positive. ABDOMEN: Soft. Bowel sounds hypoactive. EXTREMITIES: No cyanosis. Trace edema. [facility] [address] [place] [address] CONSULTATION Name: RADHA ALEMAN Room #: 358-P [facility] IN .R.#: [id number] Admission: 11/23/18 ������������������ Attend Phys: Joel Knox Discharge: ������������������ Date of : 50 Report #: [id number] ECG reveals SVT at 150 beats per minute. LABORATORY VALUES: White count is 17.6, hemoglobin is 8.0. Creatinine is 7.3, sodium is 134. ASSESSMENT AND PLAN: 1. Supraventricular tachycardia, probably due to ongoing medical issues. Not overly symptomatic. The blood pressure is on a low side, but most likely due to her other coexisting conditions including small-bowel obstruction. Would attempt heart rate control with IV Cardizem, will depend on how much her blood pressure tolerates Cardizem. If she does not respond to Cardizem, would use amiodarone as a next line. 2. Congestive heart failure/diastolic dysfunction, appears to be stable at this time with no evidence of heart failure. 3. End-stage renal disease, dialysis as per schedule. 4. Small-bowel obstruction, as per surgery, hydrate for now. 5. Chronic obstructive pulmonary disease/pulmonary hypertension, on oxygen via nasal cannula. 6. Peripheral vascular disease with recent stent insertion, continue with aspirin and Plavix. ��������������������������������������������� <ELECTRONICALLY SIGNED> ���������������������������������������� By: Jamison Holguin MD ��������������������������������������������� 11/26/18 0828 1439 2118 Jamison Holguin MD /nt
--- NOTE | 2018-11-26 09:51 | NUR ---
PT MAKING SLOW PROGRESS TOWARDS GOALS. PT REPORTING THAT HER ABDOMINAL PAIN IS "OK." RATING THE PAIN 5/10 AND DENIED NEEDING ANY PAIN MEDICATION. ALSO DENIED ANY NAUSEA. CONTINUE TO MONITOR.
[2018-11-26 10:55] VITALS: BP 142/55
--- NOTE | 2018-11-26 10:56 | EKG ---
[place] [address] [facility] [place] [address] ELECTROCARDIOGRAM REPORT Name: RADHA ALEMAN Room #: 358-P ADM IN M.R.#: [id number] ������������������ Admission: 11/23/18 ������������������ Attend Phys: Joel Knox Discharge: ������������������ Date of : 50 Report #: [id number] ����������������������������������������������������������������� [id number] THIS REPORT FOR: //name// [facility] Test Date: 2018-11-25 Test Time: 13:08:43 Pat Name: RADHA ALEMAN Department: Room: 358 Gender: F Urologic Surgeon: HARI : 1950 Requested By: Lucho Neal Order Number: [id number] MD: Jamison Holguin Measurements Intervals [place] Rate: 147 P: 114 NE: 191 QRS: -57 QRSD: 130 T: 128 QT: 345 QTc: 540 Interpretive Statements SVT RBBB and LAFB LVH with secondary repolarization abnormality Compared to ECG 11/14/2018 07:33:57 Left ventricular hypertrophy now present Early repolarization now present Sinus rhythm no longer present Ventricular premature complex(es) no longer present Electronically Signed On 11-26-2018 10:56:24 TREASURY ASSISTANT by Jamison Holguin [email or web address] ��������������������������������������������� <ELECTRONICALLY SIGNED> ���������������������������������������� By: Jamison Holguin MD ��������������������������������������������� 11/26/18 1056 1308 1308 Jamison Holguin MD /EPI
[2018-11-26 14:56] VITALS: BP 120/64
--- NOTE | 2018-11-26 18:40 | NUR ---
WOUND DRESSING CHANGED TO BUTTOCK. TURNED Q2HR AND PRN PAIN MEDICATION ADMINISNTERED. SHE IS IN PAIN WHEN BEING TURNED. IJ PLACED. AWAITING XRAY CONFIRMATION. NG TUBE IN PLACE WITH VERY MINIMAL DRAINAGE NOTED. WILL CONT WITH PLAN OF CARE.
[2018-11-26 19:20] VITALS: BP 127/46
--- NOTE | 2018-11-26 19:40 | NUR ---
VASCULAR ACCESS CONSULTED AND A DBLPICC PLACED IN RT IJ WITH 6CM EXT AND 19CM INT. CXR REVEALS THE TIP AT THE REGION OF THE RT ATRIUM AND CAJ. SEE INSERTION NI FOR DETAILS
--- NOTE | 2018-11-26 22:00 | NUR ---
NOTED THE CXR RESULTS FROM SHIFT CHANGE, REGARDING THE POSITION OF THE PICC LINE THAT WAS PLACED THIS EVENING. NO IV FLUIDS OR MEDICATIONS INFUSED INTO LINE. AWAIT REPOSITIONING IN THE AM.
--- NOTE | 2018-11-26 22:03 | NUR ---
ATTEMPTED PLACEMENT OF A PERIPHERAL IV SITE IN LEFT AC. NO SUCCESS. PATIENT NOT WANTING TO BE STUCK A SECOND TIME, SHE IS TEARFUL AND UNWILLING TO ALLOW MORE STICKS.
[2018-11-27 03:00] VITALS: BP 149/58
--- NOTE | 2018-11-27 04:31 | NUR ---
RESTING QUIETLY TONIGHT. SHE IS COOPERAITVE AND FRIENDLY,HOWEVER SHE DOES TAKE SOME ENCOURAGING TO ALLOW NURSE TO TURN HER. PROGRESSING SLOWLY TOWARD DISCHARGE GOALS.
[2018-11-27 06:11] LABS: HEMATOCRIT 24.1 % (37.0-47.0); HEMOGLOBIN 7.5 gm/dL (12.0-15.0); MCH 28.4 pg (26.0-34.0); MCHC 31.1 g/dL (28.0-37.0); MCV 91.2 fL (80.0-100.0); RBC 2.64 mil/uL (4.20-5.00); RDW 21.6 % (10.5-14.5); WBC 17.3 thou/uL (4.0-11.0)
[2018-11-27 06:32] LABS: ALBUMIN 1.7 g/dL (3.4-5.0); CREATININE 7.4 mg/dL (0.6-1.0); PHOSPHORUS 5.6 mg/dL (2.5-4.9)
[2018-11-27 06:34] LABS: POTASSIUM 4.5 mmol/L (3.5-5.1)
--- NOTE | 2018-11-27 08:13 | HC ---
[facility] [place] [address] CONSULTATION Name: RADHA ALEMAN Room #: 358-P [facility] IN .R.#: [id number] Admission: 11/23/18 ������������������ Attend Phys: Joel Knox Discharge: ������������������ Date of : 50 Report #: [id number] THIS REPORT FOR: //name// CC: Wesley Costello DATE OF SERVICE: 11/24/2018 CHIEF COMPLAINT: Sacral pressure ulceration. HISTORY OF PRESENT ILLNESS: This is a 68-year-old female patient with whom I am familiar. She has stage 4 sacral pressure ulceration, status post diverting colostomy. She has been admitted with a small-bowel obstruction. The patient does make eye contact, cannot provide much information about her. I have seen her at [facility] and was noted to have some discomfort earlier in the day. PAST MEDICAL HISTORY: Positive for stage 4 pressure ulceration of the sacrum, status post debridement, history of osteomyelitis and end-stage renal disease. She has a recent diverting colostomy and wound debridement. ALLERGIES: None. FAMILY HISTORY: Unknown. MEDICATIONS: List is reviewed. REVIEW OF SYSTEMS: Not obtainable due to her inability to answer questions at present. PHYSICAL EXAMINATION: VITAL SIGNS: At this time include temperature 97.4, pulse 147, respiration of 19 and blood pressure 117/74. GENERAL: This is a chronically ill-appearing female patient who appears to be in moderate discomfort. HEENT: Head normocephalic. Nose demonstrates a nasogastric tube is in place. There is moderate dark output in the canister. NECK: Supple. LUNGS: Clear. HEART: Regular rhythm. ABDOMEN: Slightly distended. There is some output in the colostomy bag and the ostomy appears to be pink. Examination of the sacral region demonstrates a very large sacral pressure ulceration with a moderate amount of fibrin. This is not overtly infected. There is some surrounding breakdown at the margins of this wound. NEUROLOGICAL: The patient appears symmetrical. She does make eye contact but does not answer questions. [address] [address] CONSULTATION Name: RADHA ALEMAN Room #: 358-P [facility] IN ..#: [id number] Admission: 11/23/18 ������������������ Attend Phys: Joel Knox Discharge: ������������������ Date of : 50 Report #: [id number] LABORATORY DATA: Includes sodium 134, potassium 4.1, chloride 94, CO2 of 28, BUN 60, creatinine 7.3 and glucose 191. White blood cell count 17.6 with a hemoglobin of 8.0. CLINICAL IMPRESSION: 1. Small bowel obstruction. 2. Stage 4 sacral pressure ulceration, status post prior debridement. 3. Status post diverting colostomy. 4. End-stage renal disease. 5. History of Clostridium difficile colitis. RECOMMENDATIONS: At this point in time, the patient is being followed by Surgery. We will recommend a half-strength Dakin's moist gauze dressing to the sacral region. We will recommend pulse lavage to help with this area. She will need a low air loss mattress and q. 2 hour turning and repositioning. I do not think that she will require additional surgical debridement at this point in time. I appreciate being asked to see her in consultation. ��������������������������������������������� <ELECTRONICALLY SIGNED> ���������������������������������������� By: Amadou Santiago MD ��������������������������������������������� 11/27/18 0813 1656 0304 Amadou Santiago MD /nt
[2018-11-27 08:44] VITALS: BP 146/61
--- NOTE | 2018-11-27 11:47 | 2DMMODE ---
[facility] [address] [place] [address] 2 D/M-MODE ECHOCARDIOGRAM Name: RADHA ALEMAN Room #: 358-P [facility] IN ..#: [id number] ������������� Admission: 11/23/18 ������������� Attend Phys: Wesley Escalera Discharge: ��� ������������� ��� Date of : 50 Date of Service: 11/27/18 1147 �� Report #: [id number] �������� ��������������������������������������������[id number] THIS REPORT FOR: //name// APPROVED REPORT Study performed: 11/27/2018 10:26:08 EXAM: Comprehensive 2D, Doppler, and color-flow Echocardiogram Patient Location: Bedside Room #: [facility] Status: routine BSA: 1.79 HR: 76 bpm BP: 146/61 mmHg Rhythm: RBBB Other Information Study Quality: Adequate Technically limited study due to inability to position patient. Risk Factors: Cardiac Risk Factors: HTN, DM, ESRD Indications Congestive Heart Failure COPD 2D Dimensions IVSd: 15.29 (7-11mm) LVOT Diam: 20.00 (18-24mm) LVDd: 37.14 mm PWd: 11.24 (7-11mm) Ascending Ao: 25.29 (22-36mm) LVDs: 26.90 (25-40mm) Aortic Root: 28.12 mm Biplane EF: 60.0 % Volumes Left Atrial Volume (Systole) Single Plane 4CH: 54.73 mL Aortic Valve AoV Peak Urbano.: 1.69 m/s AO Peak Gr.: 11.44 mmHg LVOT Max P.84 mmHg LVOT Max V: 0.98 m/s CHACE Vmax: 1.84 cm2 [facility] [address] [address] 2 D/M-MODE ECHOCARDIOGRAM Name: RADHA ALEMAN Room #: 358-P [facility]#: [id number] ������������� Admission: 11/23/18 ������������� Attend Phys: Wesley Escalera Discharge: ��� ������������� ��� Date of : 50 Date of Service: 11/27/18 1147 �� Report #: [id number] �������� ��������������������������������������������[id number] Mitral Valve E/A Ratio: 0.7 MV Decel. Time: 241.41 ms MV E Max Urbano.: 0.54 m/s MV A Urbano.: 0.80 m/s MV PHT: 70.01 ms TDI E/Lateral E': 9.00 E/Medial E': 9.00 Medial E' Urbano.: 0.06 m/s Lateral E' Urbano.: 0.06 m/s Pulmonary Valve PV Peak Urbano.: 1.20 m/s PV Peak Gr.: 5.72 mmHg Pulmonary Vein P Vein S: 0.58 m/s P Vein A: 0.23 m/s P Vein D: 0.36 m/s P Vein A Dur.: 90.0 msec P Vein S/D Ratio: 1.61 Tricuspid Valve TR Peak Urbano.: 4.17 m/s RAP Estimate: 10.00 mmHg TR Peak Gr.: 69.70 mmHg PA Pressure: 79.00 mmHg Left Ventricle The left ventricle is normal size. There is normal LV segmental wall motion. Mild to moderate concentric left ventricular hypertrophy. Left ventricular systolic function is normal. The left ventricular ejection fraction is within the normal range. LVEF is 55-60%. Mild diastolic dysfunction is present (impaired relaxation pattern). Right Ventricle The right ventricle is normal size. The right ventricular systolic function is normal. Atria Left atrium is mildly dilated. Right atrium is borderline dilated. Aortic Valve The Aortic valve is sclerotic. No aortic regurgitation is present. There is no aortic valvular stenosis. [place] [id number] 2 D/M-MODE ECHOCARDIOGRAM Name: RADHA ALEMAN Room #: 358-P [facility] IN [facility].#: [id number] ������������� Admission: 11/23/18 ������������� Attend Phys: Wesley Escalera Discharge: ��� ������������� ��� Date of : 50 Date of Service: 11/27/18 1147 �� Report #: [id number] �������� ��������������������������������������������[id number] Mitral Valve The mitral valve is normal in structure. Trace mitral regurgitation. No evidence of mitral valve stenosis. Tricuspid Valve The tricuspid valve is normal in structure. Mild tricuspid regurgitation. Pulmonary artery pressure is 79 mmHg. Moderate to severe pulmonary hypertension. Pulmonic Valve The pulmonary valve is normal in structure. There is no pulmonic valvular regurgitation. Great Vessels The aortic root is normal in size. IVC is normal in size and collapses <50% with inspiration. Pericardium There is no pericardial effusion. <Conclusion> The left ventricle is normal size. LVEF is 55-60%. Left atrium is mildly dilated. Right atrium is borderline dilated. The Aortic valve is sclerotic. The mitral valve is normal in structure. Trace mitral regurgitation. The tricuspid valve is normal in structure. Mild tricuspid regurgitation. Pulmonary artery pressure is 79 mmHg. Moderate to severe pulmonary hypertension. The pulmonary valve is normal in structure. There is no pericardial effusion. ��������������������������������������������� <ELECTRONICALLY SIGNED> ���������������������������������������� By: Aniceto Moses MD ��������������������������������������������� 11/27/18 1147 1147 1147 Aniceto Moses MD /INF
[2018-11-27 12:31] VITALS: BP 140/60
--- NOTE | 2018-11-27 13:21 | NUR ---
RIGHT IJ CVC WITHDREW 3CM PER RADIOLOGIST REQUEST. NEW XRAY SHOWING LINE IN GOOD POSITION AT THE CAJ
--- NOTE | 2018-11-27 14:44 | NUR ---
PATIENT IS NOW BEING DIALYSED. SHE IS ALERT ORIENED X4. WOUND CHANGED WITH MINIMAL DRAINAGE NOTED. IJ IV READJUSTED AND XRAY SHOWED CORRECT PLACEMENT. NOW RUNNING FLUIDS. SUGARS CONGTROLLED. PAIN CONTROLLED WITH MEDS. WILL CONT WITH PLAN OF CARE.
--- NOTE | 2018-11-27 16:13 | NUR ---
SW reviewed chart and spoke with nursing. Pt has NGtube in place. SW spoke with pt's dtr-in-law via phone to provide update and confirmed discharge plan is to return to [facility] when medically stable. [facility] liaison is following. SW is following to assist as needed with discharge planning.
[2018-11-27 18:06] VITALS: BP 144/58
[2018-11-27 19:40] VITALS: BP 151/59
--- NOTE | 2018-11-27 22:33 | NUR ---
DTR CALLED COURTNEY, SEE SAID THAT SHE HAS BEEN RECOVERING FORM SURGERY.
[2018-11-28 03:20] VITALS: BP 149/48
[2018-11-28 06:27] LABS: HEMOGLOBIN 6.5 gm/dL (12.0-15.0); WBC 18.3 thou/uL (4.0-11.0)
[2018-11-28 06:29] LABS: HEMATOCRIT 20.4 % (37.0-47.0); MCH 28.7 pg (26.0-34.0); MCHC 31.7 g/dL (28.0-37.0); MCV 90.6 fL (80.0-100.0); PLATELET COUNT 314 thou/uL (150-400); RBC 2.25 mil/uL (4.20-5.00); RDW 21.2 % (10.5-14.5)
[2018-11-28 07:29] LABS: ABSOLUTE NEUTROPHILS 16.1 thou/uL (1.4-8.2); ANISOCYTOSIS 2+
[2018-11-28 07:30] LABS: HYPOCHROMASIA 1+; MICROCYTES 1+; POLYCHROMASIA 1+
[2018-11-28 10:42] VITALS: BP 138/53; BP 145/55
--- NOTE | 2018-11-28 10:54 | NUR ---
WOUND FOLLOW UP: PT. WAS SEEN TODAY BY DR. HERRERA AND MYSELF. PT. WOUNDS ARE STABLE AT THIS TIME. RECOMMENDATIONS: CONTINUE WITH CURRENT PLAN OF CARE. PT. AND STAFF NURSE WERE INSTRUCTED ON PLAN OF CARE.
[2018-11-28 11:07] VITALS: BP 145/55
[2018-11-28 12:21] LABS: % SATURATION 15 % (20-39); IRON 16 ug/dL (50-170); TIBC 105 ug/dL (250-450)
--- NOTE | 2018-11-28 14:46 | NUR ---
This RN has reviewed and agrees with the assessments and charting completed by family development specialist Sabra Rebolledo.
[2018-11-28 14:54] VITALS: BP 138/53; BP 139/56; BP 98/47
--- NOTE | 2018-11-28 15:08 | NUR ---
SW reviewed chart and spoke with nursing. GI consulted today due to GI bleed and positive stool occult. TPN started. SW updated [facility] liaison. Plan is for pt to return to [facility] when medically stable. SW is following to assist as needed with discharge planning.
--- NOTE | 2018-11-28 16:52 | NUR ---
ASSUMED PATIENT CARE AT 0715. A&OX1-2. PATIENT IS DIFFICULT TO COMMUNICATE WITH. VERY LARGE SACRAL WOUND. PULSE LAVAGE DONE BY THERAPY TODAY. HGB 6.5 THIS MORNING. TWO UNITS OF BLOOD GIVEN. OCCULT STOOL POSITIVE. GI CONSULTED. NG TO LIS. NG HAVING NO OUTPUT THIS SHIFT. MEDS GIVEN PER NG.
[2018-11-28 19:30] VITALS: BP 139/60
[2018-11-29 03:41] VITALS: BP 147/61
[2018-11-29 05:34] LABS: HEMATOCRIT 29.6 % (37.0-47.0); MCH 28.8 pg (26.0-34.0); MCHC 32.8 g/dL (28.0-37.0); MCV 87.9 fL (80.0-100.0); RBC 3.37 mil/uL (4.20-5.00); RDW 19.3 % (10.5-14.5); WBC 16.2 thou/uL (4.0-11.0)
[2018-11-29 05:36] LABS: HEMOGLOBIN 9.7 gm/dL (12.0-15.0)
[2018-11-29 05:46] LABS: ALBUMIN 1.5 g/dL (3.4-5.0); CALCIUM 9.2 mg/dL (8.5-10.1); MAGNESIUM 2.3 mg/dL (1.8-2.4); PHOSPHORUS 3.7 mg/dL (2.5-4.9); POTASSIUM 3.4 mmol/L (3.5-5.1)
[2018-11-29 05:48] LABS: CREATININE 5.6 mg/dL (0.6-1.0)
--- NOTE | 2018-11-29 06:10 | NUR ---
Received pt. on O2 at 2L/NC and maintaining O2 sat in the mid to upper 90's. No respiratory distress. Medicated for pain x1 with some relief. TPN started last night. Kept NPO per order.Oral care done. NG repositioned at 65cm and verified placement by auscultation. Small amount of greenish , brownish dge this am. Colostomy also has minimal dge - loose brownish yellow stool. Repositioned q2 hrs and prn for comfort. Dressing intact on wounds. PRAFO boots and VALENTINO. Cont. on isolation , afebrile. SP cath had 50 ml urine output. Medicated for pain with some relief. Pt. had a run of SVT this am , asymptomatic and converted back to SR. Bed alarm on for safety. Will continue to monitor.
--- NOTE | 2018-11-29 07:05 | NUR ---
Dr. Rudolph notified of SVT episode. No order received at this time.
[2018-11-29 07:42] VITALS: BP 144/54
--- NOTE | 2018-11-29 11:31 | NUR ---
ASSUMED PATIENT CARE AT 0715. A&OX2. PATIENT SLOW TO RESPOND. COMPLAINING OF ABDOMINAL PAIN AND PAIN WITH TURNS. DIALYSIS TODAY. NG NOT HAVING ANY OUTPUT. NG IN CORRECT PLACEMENT PER XRAY. COLOSTOMY PUTTING OUT SMALL AMOUNTS OF LIQUID LIGHT BROWN STOOL. PATIENT NO PROGRESSING TOWARDS GOALS.
[2018-11-29 11:40] VITALS: BP 136/70
--- NOTE | 2018-11-29 12:17 | NUR ---
Pt has now started on TPN which will be managed by Renal. Continue to follow.
--- NOTE | 2018-11-29 14:26 | NUR ---
SW reviewed chart and spoke with nursing. GI consulted yesterday and pt started on TPN. Possible surgical intervention noted. SW updated [facility] liaison who is following. Pt will return to [facility] when medically stable. SW is following to assist as needed with discharge planning.
--- NOTE | 2018-11-29 14:43 | NUR ---
This RN has reviewed and agrees with the assessments and charting completed by practical nursing instructor Pretty Malloy.
[2018-11-29 16:12] VITALS: BP 143/62
--- NOTE | 2018-11-29 19:07 | EKG ---
[address] [place] [address] ELECTROCARDIOGRAM REPORT Name: RADHA ALEMAN Room #: 358-P ADM IN M.R.#: [id number] ������������������ Admission: 11/23/18 ������������������ Attend Phys: Joel Knox Discharge: ������������������ Date of : 50 Report #: [id number] ����������������������������������������������������������������� [id number] THIS REPORT FOR: //name// [facility] Test Date: 2018-11-29 Test Time: 13:05:58 Pat Name: RADHA ALEMAN Department: Room: 358 Gender: F Cross Cut Saw Operator: ROSE : 1950 Requested By: Itzel Marmolejo Order Number: [id number] MD: Aniceto Moses Measurements Intervals [place] Rate: 129 P: 0 AR: 148 QRS: -55 QRSD: 136 T: 128 QT: 334 QTc: 490 Interpretive Statements Atrial fibrillation with an increased ventricular response RBBB and LAFB Probable LVH with secondary repol abnrm Nonspecific ST-T wave changes Compared to ECG 11/25/2018 13:08:43 Atrial fibrillation now present Electronically Signed On 11-29-2018 19:07:09 SENIOR DATA ANALYST by Aniceto Moses [email or web address] ��������������������������������������������� <ELECTRONICALLY SIGNED> ���������������������������������������� By: Aniceto Moses MD ��������������������������������������������� 11/29/18 1907 1305 1305 Aniceto Moses MD /EPI
[2018-11-29 19:45] VITALS: BP 129/59
--- NOTE | 2018-11-29 22:15 | NUR ---
PATIENT CARE TRANSFERRED TO IMAN MCNEAL AT 2200.
[2018-11-30 04:41] VITALS: BP 158/71
--- NOTE | 2018-11-30 05:59 | NUR ---
TOOK OVER CARE FOR PT WHEN NOC NURSE GOT FLOATED TO ICU. PT STILL ON AMNIO DRIP WITH 0.499 MG/HR INFUSING. SURGERY IS SCHEDULED FOR THIS AM AND PT HAS BEEN NPO SINCE 2400. ACCOMPLISHED TO GIVE PT A PRE OP BATH WITH CHLORA HEX WIPES. HOURLY ROUNDING. FOLLOWING POC WITH TPN AND LIPIDS INFUSING.
[2018-11-30 08:10] VITALS: BP 142/58
--- NOTE | 2018-11-30 10:42 | NUR ---
ASSUMED PATIENT CARE AT 0715. A&OX1-2. MORE VERBAL TODAY. DRESSING CHANGED AFTER PULSE LAVAGE. OUTPUT IN COLOSTOMY IS BRIGHT RED WITH STOOL. NG AT 65 IN LEFT NARE. NO OUTPUT FROM NG. PLAN FOR SURGERY TODAY. CONSENT SIGNED BY SON. MARYURI PAPERWORK ON THE CHART. PATIENT SENT TO PACU ON AMIO GTT.
--- NOTE | 2018-11-30 14:57 | NUR ---
BRANDON reviewed chart and spoke with nursing and attending physician. Pt in surgery today for exploratory laparotomy/release of SBO/possible bowel or colon resection/possible colostomy revision. SW updated [facility] liaison. Plan is for pt to return to [facility] when medically stable. BRANDON is following to assist as needed with discharge planning.
[2018-11-30 19:00] VITALS: BP 101/64
[2018-11-30 19:30] VITALS: BP 106/60
[2018-11-30 20:00] VITALS: BP 110/60
[2018-11-30 21:00] VITALS: BP 111/63
[2018-12-01 05:02] VITALS: BP 110/55
[2018-12-01 06:58] LABS: ALBUMIN 1.3 g/dL (3.4-5.0); CALCIUM 8.4 mg/dL (8.5-10.1); MAGNESIUM 2.1 mg/dL (1.8-2.4); PHOSPHORUS 3.5 mg/dL (2.5-4.9); TOTAL BILIRUBIN 0.4 mg/dL (<0.1-1.0); TOTAL PROTEIN 5.8 g/dL (6.4-8.2)
[2018-12-01 07:00] LABS: CREATININE 4.3 mg/dL (0.6-1.0)
[2018-12-01 07:24] VITALS: BP 119/61
--- NOTE | 2018-12-01 07:49 | NUR ---
PATIENT IS PROGRESSING SLOWLY IN HER CARE PLAN. VITAL SIGNS STABLE THROUGHOUT SHIFT WITH NURSE CLOSELY MONITORING PATIENT DUE TO BEING POST PROCEDURE. PATIENT IS CONFUSED AND UNABLE TO CALL APPROPRIATELY FOR NEEDS. BREATHING FINE ON OXYGEN PER ORDER EVIDENCED BY SPOT OXYGENATION CHECKS. SURGICAL DRESSING REMAINS C/D/I WITH WOUND VAC IN PLACE. NURSE EMPTIED 50 CC'S OF BLOOD FROM PATIENTS COLOSTOMY BEFORE MORNING SHIFT CHANGE. PATIENT COMPLAINED OF PAIN IN ABDOMEN WHICH WAS TREATED WITH MEDICATION. NG TUBE WITH NO OUTPUT. CONTINUE PLAN OF CARE.
[2018-12-01 08:26] LABS: HEMATOCRIT 24.5 % (37.0-47.0); MCHC 32.4 g/dL (28.0-37.0); MCV 89.5 fL (80.0-100.0); RBC 2.74 mil/uL (4.20-5.00); RDW 18.8 % (10.5-14.5); WBC 21.3 thou/uL (4.0-11.0)
--- NOTE | 2018-12-01 09:17 | HC ---
[facility] [place] [address] CONSULTATION Name: RADHA ALEMAN Room #: 358-P ADM IN M.R.#: [id number] Admission: 11/23/18 ������������������ Attend Phys: Joel Knox Discharge: ������������������ Date of : 50 Report #: [id number] THIS REPORT FOR: //name// CC: Wesley Costello DATE OF SERVICE: 11/24/2018 REASON FOR CONSULTATION: End-stage renal disease. HISTORY OF PRESENT ILLNESS: This 68-year-old patient, well known to our service with end-stage renal disease, has sacral and lower extremity wounds, which have been severe. She was admitted here about 10 days ago for a diverting colostomy, which was performed due to the sacral decubitus and soiling. She underwent the procedure, apparently did well initially, but has had decreasing appetite and abdominal pain and no appetite over the last several days. She had a CT of the abdomen, which then showed a small bowel obstruction. She was admitted here and NG tube was placed. PAST MEDICAL HISTORY: Longstanding multiple sclerosis and diabetes, indwelling suprapubic catheter, progressive diabetic nephropathy. She has got paraparesis, does not use her lower extremities, and pulmonary hypertension. CURRENT MEDICATIONS: Please see chart. FAMILY HISTORY: Positive for heart disease. SOCIAL HISTORY: Former smoker, resides long-term at extended care facility. REVIEW OF SYSTEMS: She is not really particularly conversant at the current time. She is ill. She has got an NG tube in, apparently has been eating poorly for several days, has had abdominal pain which is resolved at this point. No fevers or chills. She did have difficulty with her most recent dialysis. She is not short-winded, no chest pain, but she is having pain at the site of her sacral ulcer and her leg ulcers. PHYSICAL EXAMINATION: GENERAL: Lethargic woman. SKIN: She has got the wounds on both legs and of course the huge gaping sacral wound. SKELETAL: Shows her to have no amputations. HEENT: Extraocular movements are full. No scleral icterus. Hearing and vision intact. Nasogastric tube in place. Mucous membranes are dry. NECK: Supple. CHEST: Clear anterior examination. HEART: Distant and somewhat irregular. ABDOMEN: Soft and nontender with a colostomy in place. [address] [address] CONSULTATION Name: RADHA ALEMAN Room #: 358-P [facility] IN M.R.#: [id number] Admission: 11/23/18 ������������������ Attend Phys: Joel Knox Discharge: ������������������ Date of : 50 Report #: [id number] EXTREMITIES: Show multiple dressings and sacral wound also has a dressing on it. NEUROLOGIC: Shows her to be moving upper extremities well and lower extremities not much. LABORATORY DATA: Pending. ASSESSMENT AND PLAN: 1. End-stage renal disease, due for dialysis today. We will make appropriate arrangements. Check labs. 2. Apparent small bowel obstruction. This is a post-surgical diverting colostomy. Obviously, Surgery will have to be involved. Nasogastric tube in place. 3. Sacral decubitus ulcer. 4. Leg wounds. 5. Multiple sclerosis with paraparesis. 6. 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 7. Pulmonary hypertension. ��������������������������������������������� <ELECTRONICALLY SIGNED> ���������������������������������������� By: Cesario Harrison MD ��������������������������������������������� 12/01/18 0917 1200 2233 Cesario Harrison MD /nt
--- NOTE | 2018-12-01 10:05 | NUR ---
SW reviewed chart and spoke with nursing and attending physician. Pt is POD #1. Pt remains on TPN and has wound vac in place. No weekend discharge anticipated. SW updated [facility] liaison. Plan is for pt to return to [facility] when medically stable. BRANDON is following to assist as needed with discharge planning.
--- NOTE | 2018-12-01 11:07 | EKG ---
[address] [place] [place] [address] ELECTROCARDIOGRAM REPORT Name: RADHA ALEMAN Room #: 358-P ADM IN M.R.#: [id number] ������������������ Admission: 11/23/18 ������������������ Attend Phys: Joel Knox Discharge: ������������������ Date of : 50 Report #: [id number] ����������������������������������������������������������������� [id number] THIS REPORT FOR: //name// [facility] Test Date: 2018-12-01 Test Time: 08:53:30 Pat Name: RADHADEANNA ALEMAN Department: Room: 358 Gender: F Drainage Inspector: SNOW : 1950 Requested By: Itzel Marmolejo Order Number: [id number] MD: Boo Dee Measurements Intervals [place] Rate: 76 P: NE: QRS: -57 QRSD: 134 T: 96 QT: 458 QTc: 516 Interpretive Statements Accelerated junctional rhythm RBBB and LAFB Electronically Signed On 12-01-2018 11:07:21 BUSINESS OPERATIONS CONSULTANT by Boo Dee [email or web address] ��������������������������������������������� <ELECTRONICALLY SIGNED> ���������������������������������������� By: Boo Dee MD ��������������������������������������������� 12/01/18 1107 0853 0853 MD MERVAT Resendiz
[2018-12-01 11:50] VITALS: BP 142/64
[2018-12-01 15:30] VITALS: BP 127/61
--- NOTE | 2018-12-01 17:04 | NUR ---
WOUND FOLLOW UP: PT. WAS SEEN TODAY BY DR. HERRERA AND MYSELF. PT. WOUNDS ARE CLINICALLY BETTER AT THIS TIME. PULSE LAVAGE WILL BE STOPED AT THIS TIME. RECOMMENDATIONS: CONTINUE WITH CURRENT PLAN OF CARE. PT. AND STAFF NURSE WERE INSTRUCTED ON PLAN OF CARE.
--- NOTE | 2018-12-01 18:26 | NUR ---
Assumed care of Pt at 0700. Pt confused. able to answer simple questions. pulse lavage on hold per wound care. dressings changed per order. turned Q2H. HD ongoing at bedside. bloody output in ostomy. vitals stable. continue amio gtt per cardiology . tpn infusing per order. no other remarkable changes to report. slow progress toward poc goals.
[2018-12-01 20:28] VITALS: BP 151/58
--- NOTE | 2018-12-02 04:34 | NUR ---
AFTER DIALYSIS, COMPLETELY CHANGED BED LINES AND PT'S GOWN DUE TO BLOOD ALL OVER. GAVE PT PAIN MEDICATION BEFORE MOVING PT. LARGE WOUND ON BACKSIDE IS STILL C/D/I WITH SMALL WOUND VAC GOING. FOLLOWING POC WITH TPN AND LIPIDS. AMNIO GTT INFUSING AT 0.4999. HEARTRATE IS 60-70. DIALYSIS NURSE STATED SHE DID NOT PULL ANY FLUIDS OFF, ONLY CLEANED HER BLOOD. NG TUBE STILL ON INTERMENTENT SUCTION WITH SMALL AMOUNT OF FLUID OUT. NEW COLOSTOMY BAGS ARE IN ROOM. HOURLY ROUNDING.
[2018-12-02 06:25] LABS: HEMOGLOBIN 6.5 gm/dL (12.0-15.0); MCH 29.2 pg (26.0-34.0); MCHC 33.1 g/dL (28.0-37.0); MCV 88.2 fL (80.0-100.0); RBC 2.23 mil/uL (4.20-5.00); RDW 18.7 % (10.5-14.5); WBC 17.9 thou/uL (4.0-11.0)
[2018-12-02 06:26] LABS: HEMATOCRIT 19.7 % (37.0-47.0)
[2018-12-02 06:42] LABS: CALCIUM 8.5 mg/dL (8.5-10.1); POTASSIUM 4.1 mmol/L (3.5-5.1)
[2018-12-02 07:35] VITALS: BP 155/59
--- NOTE | 2018-12-02 08:33 | NUR ---
LOW HGB AND HCT NOTED. DR BRUNO NOTIFIED AND NO NEW ORDERS.
[2018-12-02 12:01] VITALS: BP 150/67
[2018-12-02 16:42] VITALS: BP 172/68
[2018-12-02 20:10] VITALS: BP 140/61
[2018-12-02 23:55] VITALS: BP 137/69
[2018-12-03 03:55] VITALS: BP 169/47
[2018-12-03 06:19] LABS: RBC 2.14 mil/uL (4.20-5.00)
[2018-12-03 06:22] LABS: MCH 29.2 pg (26.0-34.0); MCHC 32.8 g/dL (28.0-37.0); RDW 18.8 % (10.5-14.5); WBC 15.5 thou/uL (4.0-11.0)
[2018-12-03 06:28] LABS: HEMOGLOBIN 6.2 gm/dL (12.0-15.0)
[2018-12-03 06:42] LABS: ALBUMIN 1.2 g/dL (3.4-5.0); CALCIUM 8.3 mg/dL (8.5-10.1); CREATININE 3.6 mg/dL (0.6-1.0); MAGNESIUM 2.2 mg/dL (1.8-2.4); PHOSPHORUS 2.2 mg/dL (2.5-4.9); POTASSIUM 4.3 mmol/L (3.5-5.1)
--- NOTE | 2018-12-03 07:45 | NUR ---
ASSUMED CARE AT 1900, ASSESSMENT COMPLETED. PT C/O SEVERE ABD AND SACRAL PAIN WITH ANY TOUCH OR MOVEMENT; HAD TO GIVE IV MORPHINE BEFORE ANY TURNS, PT WOULD REFUSES TURNS OTHERWISE. DENIED NAUSEA OR SOB, HOWEVER HAS SHALLOW BREATHING AND VERY DIMINISHED BREATH SOUNDS, SATTING 98-100% ON RA. SR WITH 1ST DEG BLOCK, HR IN 80'S, OCCASIONAL PVC OR PAC OVERNIGHT, BUT LARGELY STAYED REGULAR OVERNIGHT. NG TUBE HAD 350 ML DARK GREEN/BLACK OUTPUT WITH COFFEE GROUND GRITS PRESENT. SCANT OUTPUT FROM CALD[place], DARK GREEN AND THICK. COLOSTOMY HAD SMALL AMOUNT OF DARK RED/BROWN SOFT FORMED STOOL. MAINTAINED TPN AT 60 ML/HR, AMIO DRIP, AND NS AT 30 ML/HR INTO RIGHT IJ. ABD WOUND VAC IN PLACE/INTACT, SACRAL WOUND DRESSING C/D/I. HGB/HCT RESULTED CRITICAL LOW THIS AM, SPOKE WITH DR. BRUNO REGARDING CRITICAL VALUES--ORDERED TYPE/SCREEN AND TWO UNITS OF BLOOD TO BE GIVEN TOMORROW 12/04/18 DURING DIALYSIS. GAVE 10 UNITS INSULIN AT MIDNIGHT AND 4 UNITS OF INSULIN FOR 0600 DOSE. NO OTHER CONCERNS, SHIFT REPORT GIVEN AT 0700.
[2018-12-03 07:55] VITALS: BP 162/65
[2018-12-03 11:07] VITALS: BP 153/66
[2018-12-03 16:17] VITALS: BP 157/67
--- NOTE | 2018-12-03 18:18 | NUR ---
PT ALERT AND ORIENTED TIMES THREE. VSS, 97%RA, TPN AND AMIODARONE GTT INFUSING PER ORDER. WOUND VAC ABD, NG TO LEFT NARE, CALDWELL ALL INATCT TO DD. COLOSTOMY WITH DARK/RED COLORED STOOL NOTED. DRESSING TO BUTTOCK CHANGED PER WOUND CARE AND THIS NURSE. PRN PAIN MEDICATIONS GIVEN WITH SOME RELELF. PT HBG 6.2 TODAY, 2 UNITS PRBC'S ORDERED TO GIVE WITH DIALYSIS TOMORROW PER DR. BRUNO. PT REFUSED MOST TURNS THIS SHIFT. FAMILY AT BEDSIDE THIS AFTERNOON. WILL CONTINIUE TO MONITOR.
[2018-12-03 19:20] VITALS: BP 165/70
--- NOTE | 2018-12-03 22:02 | EKG ---
[place] [address] [facility] [place] [address] ELECTROCARDIOGRAM REPORT Name: RADHA ALEMAN Room #: 358-P ADM IN M.R.#: [id number] ������������������ Admission: 11/23/18 ������������������ Attend Phys: Joel Knox Discharge: ������������������ Date of : 50 Report #: [id number] ����������������������������������������������������������������� [id number] THIS REPORT FOR: //name// [facility] Test Date: 2018-12-02 Test Time: 12:27:25 Pat Name: RADHA ALEMAN Department: Room: 358 Gender: F Cnc Mill Operator: GOLDEN : 1950 Requested By: Maribel Us Order Number: [id number] MD: Boo Dee Measurements Intervals [place] Rate: 87 P: 53 NV: 201 QRS: -62 QRSD: 140 T: 98 QT: 391 QTc: 471 Interpretive Statements Sinus rhythm RBBB and LAFB Compared to ECG 12/01/2018 08:53:30 Accelerated junctional rhythm no longer present Electronically Signed On 12-03-2018 22:01:56 SURVEY DATA TECHNICIAN by Boo Dee [email or web address] ��������������������������������������������� <ELECTRONICALLY SIGNED> ���������������������������������������� By: Boo Dee MD ��������������������������������������������� 12/03/182200 26 26 Boo Dee MD /SULAIMAN
--- NOTE | 2018-12-04 05:37 | NUR ---
ER ADMITTED PT FROM EMS AND WAS TRANSFERED TO . FOLLOWED POC WITH IVF AND IVPB ANTIBIOTICS. ALL THREE CIWA'S THROUGHUT THE SHIFT WERE A 3. PT HAS BEEN NPO SINCE 2400 FOR SURGERY TODAY. PT'S LEFT FOOT HAS BEEN ELEVATED WITH A PILLOW. PT'S CONCERN WAS FOR PAIN CONTROL AND WHEN HIS SURGERY IS. VSS. HOURLY ROUNDING. PT USES CALL LIGHT ACCORDINGLY AND USES URINAL AT BEDSIDE.
--- NOTE | 2018-12-04 05:45 | NUR ---
DIALYSIS IS SCHEDULED FOR PT TODAY. DURING THE SESSION, PT WILL RECEIVE 2 UNITS OF PRBC'S DUE TO HgB OF 6.5. PT REQUESTED PAIN MEDICATION 1 TIME OVER SHIFT. REPLACED ALL LINES FOR TPN WITH CORRECT FILTER AND NEW AMNIO LINE WITH CORRECT FILTER. NG TUBE STILL IN PLACE AND PRODUCING MORE LIQUID THAN IN PREVIOUS SHIFTS. HOURLY ROUNDING.
[2018-12-04 05:48] VITALS: BP 126/57
[2018-12-04 08:00] VITALS: BP 111/59
--- NOTE | 2018-12-04 12:57 | NUR ---
SW reviewed chart and spoke with nursing and attending physician. Pt remains on TPN and is NPO due to SBO. Discharge back to [facility] is anticipated for the middle to end of this week. SW updated [facility] liaison, who conifrms they are able to accept pt back when she is medically stable. BRANDON is following to assist as needed with discharge planning.
--- NOTE | 2018-12-04 14:48 | NUR ---
WOUND FOLLOW UP: PT. WAS SEEN TODAY BY DR. HERRERA AND MYSELF. PT. WOUNDS ARE ALL CLINICALLY BETTER TODAY. RECOMMENDATIONS: CONTINUE WITH CURRENT PLAN OF CARE. PT. AND STAFF NURSE WERE INSTRUCTED ON PLAN OF CARE.
[2018-12-04 19:15] VITALS: BP 135/61
--- NOTE | 2018-12-04 20:14 | NUR ---
RESIDENT CONT ON BEDREST TODAY. NG TUBE IN LEFT NARE IN PLACE AND DRAINS DARK GREEN FLUID. SHE WAS GIVEN PAIN MEDICATION THROUGH THE DAY SHE WAS IN PAIN TO BOTTOCKS. SHE IS ALERT ORIENTED X4. DRESSING TO WOUND CHANGED. COLOSTOMY DRAINING DARK BLACK BLOODY LIQUID. NO STOOLS PARTICLES NOTED. HAD DIALYSIS THIS PM WITH BLOOD. WILL CONT WITH PLAN OF CARE.
[2018-12-04 21:05] LABS: HEMATOCRIT 29.2 % (37.0-47.0)
[2018-12-04 21:06] LABS: HEMOGLOBIN 9.9 gm/dL (12.0-15.0)
--- NOTE | 2018-12-04 23:02 | O ---
[facility] [place] [address] OPERATIVE REPORT Name: RADHA ALEMAN Room #: 358-P ADM IN M.R.#: [id number] Admission: 11/23/18 ������������������ Attend Phys: Joel Knox Discharge: ������������������ Date of : 50 Report #: [id number] THIS REPORT FOR: //name// CC: Wesley Santiago MD DATE OF SERVICE: 11/30/2018 SURGEON: Oscar Paulino MD MANAGER STAR: None. PREOPERATIVE DIAGNOSIS: Small-bowel obstruction. POSTOPERATIVE DIAGNOSES: 1. Colonic obstruction. 2. Intra-abdominal adhesions. PROCEDURES: 1. Exploratory laparotomy. 2. Lysis of adhesions with release of small bowel/colon obstruction. 3. Colostomy revision with partial colectomy and end-transverse colostomy. ANESTHESIA: General endotracheal anesthesia. ESTIMATED BLOOD LOSS: 100 mL. SPECIMEN: Colostomy. COMPLICATIONS: None appreciated. INDICATIONS FOR PROCEDURE: This is a 68-year-old female patient known to me who underwent previous sacral debridement and most recently on 11/14/2018, laparoscopic diverting loop transverse colostomy with lysis of adhesions. The patient had been transferred to [facility] for further convalescent care and had been doing well until several days prior to her admission, when she developed worsening leukocytosis. She then developed abdominal distention and abdominal pain. CT of the abdomen and pelvis showed changes consistent with a small-bowel obstruction. She was transferred to [facility] for further evaluation and treatment. A nasogastric tube was then placed and the patient was decompressed, but had ongoing clinical signs and symptoms of a bowel obstruction. She presents today for exploratory laparotomy. [facility] [address] [place] [address] OPERATIVE REPORT Name: RADHA ALEMAN Room #: 358-P ADM IN M.R.#: [id number] Admission: 11/23/18 ������������������ Attend Phys: Joel Knox Discharge: ������������������ Date of : 50 Report #: [id number] OPERATIVE FINDINGS: Upon entrance into the abdominal cavity, the small bowel was distended. Further dissection revealed that the colostomy appeared to have twisted near the fascial level. In addition to this, there was constriction of the stoma at the fascial level, although there was no ischemia seen. The patient's cecum was quite large with a diameter of 9-10 cm; however, there was no evidence for perforation or impending perforation. At least 1 liter of liquid stool was decompressed from the cecum while performing the colostomy. The patient had other intra-abdominal adhesions, mostly involving the omentum into the lower abdomen and to the abdominal wall. After taking these down, I was able to run the entire small bowel and there were no significant adhesions that would cause a small-bowel obstruction. Decision was for resection of the loop transverse colostomy and revision with an end-transverse colostomy. After doing so, the stoma was palpably patent beyond the fascial level. No other significant intra-abdominal pathology was seen. At the conclusion of the operation, the sponge, needle, and instrument counts were correct. DESCRIPTION OF PROCEDURE IN DETAIL: After the risks, benefits, and expectations of the operation were discussed in detail with the patient, informed consent was obtained. The patient was identified in the preoperative holding area. She was receiving scheduled IV antibiotics. The patient was then taken to the operating room and she was placed in the supine position. SCDs were placed on the patient's bilateral lower extremities and pneumatic compression was initiated. The patient was then given IV sedation and she was intubated without incident. Her abdomen was prepped and draped in the standard sterile fashion after placing a 2-0 silk pursestring suture around the stoma. A time-out was performed to identify the correct patient and procedure. A sharp #10 blade scalpel was used to make a vertical upper midline incision. Electrocautery was used to dissect through the subcutaneous tissue down to the fascia. The fascia and peritoneum were then opened along the length of the incision. The omental adhesions to the abdominal wall were carefully taken down with electrocautery judiciously. Dissection was carried infraumbilically and decision was made to further open the abdomen. A #10 blade scalpel and cautery were used to accomplish this. Omental adhesions to the stoma itself were carefully taken down with finger fracture and blunt dissection. The enlarged cecum was then identified. The distention was traced up to the level of the colostomy. A decision was made for takedown of the colostomy. A circular incision was made around the previous colostomy and dissection was carried down to the fascia with finger fracture and judicious use of electrocautery. From the inside, the stoma was freed from the surrounding tissue. The stoma was then delivered into the abdominal cavity. Additional pursestring sutures were placed to prevent spillage of liquid stool into the abdominal cavity. Areas were chosen for proximal and distal transection of the [facility] [address] [place] [address] OPERATIVE REPORT Name: RADHA ALEMAN Room #: 358-P [facility] IN MAnya#: [id number] Admission: 11/23/18 ������������������ Attend Phys: Joel Knox Discharge: ������������������ Date of : 50 Report #: [id number] colon (proximal and distal to the closed stoma). A blue load 75 mm LUNA staplers were used to staple and divide the colon. The mesentery was then divided and the segment of transverse colon was sent for specimen. The remainder of the transverse colon over to the hepatic flexure was freed to decrease tension. Despite doing this, the transverse colon did not deliver through the circular opening well and decision was made to attempt to decompress the cecum to see if that would decrease the mass effect. A pursestring suture was placed on the transverse colon staple line and an opening was made. A red Aleman catheter was then inserted and there was some decompression of the colon, but not significantly. Decision was then made to excise the staple line and pass a suction device into the colon. After doing this, I was able to suction out nearly 1000 mL of liquid brown stool. The remainder of the staple line was opened and a Phylicia-type 3-0 PDS sutures were placed at the 12, 3, 6, and 9 o'clock positions. The remainder of the colon was then decompressed. The subcutaneous tissue was cleansed. The abdominal cavity was then further explored. The omental adhesions into the lower abdomen were carefully taken down. The small bowel was identified. The small bowel was run from the ileocecal valve to the ligament of Treitz with no significant adhesions identified. The nasogastric tube was positioned by Anesthesia within the stomach with my assistance. The abdominal cavity was then copiously irrigated with 4 liters of warm normal saline. After ensuring final hemostasis and that the sponge, needle and instrument counts were correct, the midline abdominal wall fascia was closed with a running looped #1 PDS suture. The subcutaneous tissue was then irrigated. [place] were used for skin closure. The colostomy was then matured. Short runs of 3-0 Vicryl suture were used to completely mature the stoma. After doing so, the stoma itself was digitally examined for patency. The skin was cleansed and dried. A Prevena negative pressure topical wound VAC was then applied. A notch was cut in the Prevena to allow for placement of the stoma appliance. A good seal was present on the device. The stoma appliance fit well. At the conclusion of the operation, the sponge, needle, and instrument counts were correct. The patient tolerated the procedure well. She was awakened, extubated, and taken to the recovery room in stable condition with no apparent intraoperative complications. ��������������������������������������������� <ELECTRONICALLY SIGNED> ���������������������������������������� By: Oscar Pauilno MD, FACS ��������������������������������������������� 12/04/18 2302 [id number] 1613 Oscar Paulino MD, FACS /nt
[2018-12-05 00:08] VITALS: BP 155/75
[2018-12-05 03:25] VITALS: BP 153/62
--- NOTE | 2018-12-05 06:04 | NUR ---
PATIENT IS ALERT TO SELF AND SITUATION. PATIENTS PAIN IS CONTROLLED. PATIENT HAS A NG ON LOW TO INTERMIENTENT SUCTION WITH BLACK/GREEN LIQUID. PAITENT IS Q 2 TURN. PATIENT IS ON ROOM AIR. PATIENT IS ON TPN, AN AMIODARONE DRIP (SUSTAINED UNTIL RESUME PO), AND LIPIDS. PATIENT HAS COLOSTOMY WITH SMALL AMOUNT OF STOOL AND MOD AMOUNT OF DARK RED CLOTS. OSTOMY BAG CHANGED. PART BATH GIVEN. PATIENT HAS A SUPRA PUBLIC CATH. PATIENT GETS ANXIOUS BUT IS EASY TO REASSURE. PATIENT DRESSING ARE INTACT. PATIENT IS RESTING COMFORTABLEY IN BED. WCM. PATIENT IS PROGRESSING TO GOALS.
[2018-12-05 06:05] LABS: HEMATOCRIT 26.6 % (37.0-47.0); HEMOGLOBIN 8.8 gm/dL (12.0-15.0); MCH 28.7 pg (26.0-34.0); MCV 87.1 fL (80.0-100.0); RBC 3.05 mil/uL (4.20-5.00); RDW 16.3 % (10.5-14.5)
[2018-12-05 07:04] VITALS: BP 152/104
--- NOTE | 2018-12-05 09:11 | PATH ---
[facility] [place] [address] PATHOLOGY RPT PROCEDURE Name: RADHA ALEMAN Room #: 358-P ADM IN M.R.#: [id number] ������������������ Admission: 11/23/18 ������������������ Date of : 50 Discharge: Report #: [id number] Path Case #: [id number] LCA Accession Number: [id number] . 01 Material submitted: . COLOSTOMY . 01 Clinical history: . Bowel obstruction . 02 Diagnosis: Segment of colon "colostomy", segmental resection: - The stoma reveals edema and congestion with acute and chronic inflammation. The mucosa submitted on either side of the stoma reveals congestion and edema. - There is no evidence of malignancy. (SHA:sampson; 12/04/2018) QMS/12/04/2018 . 02 Electronically signed: . Brendan Car MD, Pathologist NPI- [id number] . 01 Gross description: . The specimen is received in formalin, labeled "Radha Aleman, colostomy". Received is a segment of colon measuring 9.8 cm in length by 3.7 cm in diameter. Both margins are stapled closed. The serosal surface is pink-lopez in appearance with a large amount of overlying adhesions. 3.3 cm from one margin, there is exposed red-valencia mucosa, consistent with a stoma, measuring 1.8 x 1.4 cm. Opening the specimen reveals pale valencia to pink Red, predominantly flattened mucosa. No distinct nodules or lesions are noted grossly. A labor service representative section through the stomal area is submitted in cassette A1. Waistband Setter Lockstitch sections of mucosa from either side of the stoma are submitted in cassette A2. (CAA; 12/01/2018) QAC/QAC . 02 Pathologist provided ICD-10: K52.9, K94.03 . 02 CPT . 675584 Specimen Comment: A courtesy copy of this report has been sent to Specimen Comment: [phone], . Specimen Comment: Report sent to / DR BLISS Specimen Comment: A duplicate report has been generated [place] [address] PATHOLOGY RPT PROCEDURE Name: RADHA ALEMAN Room #: 358-P [facility] IN M.R.#: [id number] ������������������ Admission: 11/23/18 ������������������ Date of : 50 Discharge: Report #: [id number] Path Case #: [id number] Performed at: [address], [place], [place] [id number] MD Michael Orozco MD Phone: [phone] Performed at: [address] [id number] MD Enedelia Hawkins MD Phone: [phone]
[2018-12-05 11:37] VITALS: BP 186/75
--- NOTE | 2018-12-05 15:22 | NUR ---
SW reviewed chart and spoke with nursing and attending physician. Pt is progressing towards goals for discharge. Pt's NG tube to be clamped today. Pt's diet will be advanced. SW updated [facility] liaison. Plan is for pt to return to [facility] when medically stable. BRANDON spoke with pt's son, Richard, via phone to provide update. Richard is aware and agreeable with plan. BRANDON is following to assist as needed with discharge planning.
--- NOTE | 2018-12-05 15:54 | NUR ---
MAT ASPIRATED W/AROUND 8-10ML RESIDUAL, RETURNED AND DR. BLISS AND ASSOCIATE Sherri'Joel'Tony RIVERO, PT TOLERATED WELL. CURRENTLY PT SIPPING, SLOWLY, MINIMAL AMTS OF ICED SPRITE AND WATER, TOLERATING WELL. STAFF WELL OTHER ANCILLIARY STAFF HELPING WITH POSITION CHANGES. AIDE REPORTS PT REFUSING TURNS FOR HER, EDUCATED PT/AIDE THIS ISN'T AN OPTION. PT HAD C/O STAFF TURNING HER ROUGHLY AT SHIFT CHANGE THIS A.M.YET ALSO SAYS ANY MOVEMENT HURTS. SHE AGREES TO CONTINUE TO ALLOW STAFF TO HELP HER WITH POSITION CHANGES. RIGHT HAND SWOLLEN, SHE STATES THIS HAS BEEN ONGOING FOR MONTHS. ENCOURAGED HER TO USE IT WELL PLACED ON PILLOW FOR COMFORT. FINGERTIPS WARM, NO DIFFERECE IN FEELING FROM L HAND TEMPERATURE NUNEZ. ENCOURAGED HER TO USE CALL LIGHT FOR ANY NEEDS
--- NOTE | 2018-12-05 16:06 | NUR ---
PHYSICIAN CALL: CALLED DR. BLISS'S OFFICE TO ASK FOR RETURN CALL TO ADDRESS HTN WITH PRN MEDICATION B/P'S USUALLY 150/160 SBP, LAST CHECK 180S. AWAITING RETURN CALL
[2018-12-05 16:20] VITALS: BP 139/73
--- NOTE | 2018-12-05 16:22 | NUR ---
PHYSICIAN CALL: DR. BLISS R/T CALL, CALLED CARDIOLOGY TO GIVE FYI ON HTN
--- NOTE | 2018-12-05 16:58 | NUR ---
WOUND FOLLOW UP: PT. WAS SEEN TODAY BY DR. HERRERA AND MYSELF. PT. WOUNDS ARE CLINICALLY BETTER AND PT. WAS IN GOOD SPIRITS TODAY. RECOMMENDATIONS: CONTINUE WITH CURRENT PLAN OF CARE. PT. AND STAFF NURSE WERE INSTRUCTED ON PLAN OF CARE.
[2018-12-05 20:00] VITALS: BP 152/72
--- NOTE | 2018-12-06 02:04 | NUR ---
PATIENT IS ALERT TIMES 2-3. PATIENT GETS ANXIOUS. PATIENTS PAIN IS CONTROLLED WITH PAIN MEDICATION. PATIENT IS Q2TURN. PATIENT IS ROOM AIR. DRESSING WAS CHANGED ON COCCYX. PATIENT IS Q6H ACCUCHECK. DUE TO TPN. PATIENT IS ON CLEAR LIQUIDS. PATIENT HAS A CLOSTOMY AND SUPRA PUBLIC CATH. PATIENT IS DIALYSIS MWF PATIENT HAS A RT AV FISTULA. PATIENT IS ON AMIO DRIP UNTIL PO CAN CONTINUE. PATIENT GOT A BATH AND IS RESTING COMFORTABLEY.WCM. PATIENT IS PROGRESSING TO GOALS
[2018-12-06 06:00] VITALS: BP 152/72
[2018-12-06 07:13] LABS: ALBUMIN 1.2 g/dL (3.4-5.0); CALCIUM 8.6 mg/dL (8.5-10.1); CREATININE 3.7 mg/dL (0.6-1.0); PHOSPHORUS 2.1 mg/dL (2.5-4.9); POTASSIUM 4.8 mmol/L (3.5-5.1)
[2018-12-06 08:01] VITALS: BP 126/52
[2018-12-06] MEDS ORDERED: MERREM1 GM IVPB (11:51)
[2018-12-06] MEDS ORDERED: ALBUTEROL2.5 MG/31 INH (11:52)
[2018-12-06] MEDS ORDERED: CARDIZEM CD240 MG PO (11:53)
[2018-12-06 13:21] VITALS: BP 144/65
--- NOTE | 2018-12-06 15:31 | NUR ---
on-going assessment: PATIENT HAS ORDERS TO DISCHARGE TODAY TO [facility]. DRAKE SPOKE WITH JASON ADAM FROM [facility] TO NOTIFY AND SHE STATES SHE CAN ACCEPT PATIENT TODAY. CM NOTIFIED PATIENT AND HER SON JESUS MANUEL OF DISCHARGE. PATIENT IS GETTING HER DIALYSIS AND THEN AN AMBULANCE ([facility]ROUGH [facility]) [phone] HAS BEEN ARRANGED TO TAKE PATIENT TO [facility] AT 1900. CHART COPY WAS ORDERED THROUGH [employer]. DRAKE FAXED DISCHARGE ORDERS TO [facility], CONFIRMED RECEIPT AND PROVIDED BEDSIDE RN WITH THE NUMBER FOR REPORT. PT AND HER SON AGREEABLE WITH DISCHARGE PLAN.
--- NOTE | 2018-12-06 16:58 | NUR ---
PT ALERT AND ORIENTED TIMES FOUR. VSS, 97%RA, SR ON TELE, TPN C/O PAIN PRN PAIN MEDICATION GIVEN WITH SOME RELEIF. DRESSINGS TO BUTTOCK AND LEFT LEG BOTH CHANGED THIS SHIFT. ABD PREVENA WOUND VAC REMOVED, SMALL AMOUNT OF BLOODY DRAINAGE NOTED MIDLINE INCISION CONCHITA OPEN TO AIR. PT TOLERATES MEDS AND FULL LIQUID DIET. PT CURRENTLY RECEVING DIALYSIS, AFTERWARDS THE PLAN IS TO BE DISCHARGED TO THE [facility]. WILL CONTINUE TO MONITOR.
[2018-12-06 17:33] VITALS: BP 139/73
== END 2018-12-06 19:30 | DRG 853 ==
LOC: 3W 18:33
PROVIDERS: Hospitalist; Internal Medicine Geriatric Medicine; Internal Medicine Nephrology; Nurse Practitioner; Nurse Practitioner Family; Nurse Practitioner Gerontology; Specialist; Surgery; ADMIT Internal Medicine
PROC: 5A1D70Z Performance of Urinary Filtration, Intermittent, Less than 6 Hours Per Day (ICD-10-PCS; principal; 2018-11-24)
PROC: 0D9670Z Drainage of Stomach with Drainage Device, Via Natural or Artificial Opening (ICD-10-PCS; 2018-11-25)
PROC: 02H633Z Insertion of Infusion Device into Right Atrium, Percutaneous Approach (ICD-10-PCS; 2018-11-26)
PROC: 5A1D70Z Performance of Urinary Filtration, Intermittent, Less than 6 Hours Per Day (ICD-10-PCS; 2018-11-27)
PROC: 30233N1 Transfusion of Nonautologous Red Blood Cells into Peripheral Vein, Percutaneous Approach (ICD-10-PCS; 2018-11-28)
PROC: 5A1D70Z Performance of Urinary Filtration, Intermittent, Less than 6 Hours Per Day (ICD-10-PCS; 2018-11-29)
PROC: 30233R1 Transfusion of Nonautologous Platelets into Peripheral Vein, Percutaneous Approach (ICD-10-PCS; 2018-11-30)
PROC: 0DNU0ZZ Release Omentum, Open Approach (ICD-10-PCS; 2018-11-30)
PROC: 0DBL0ZZ Excision of Transverse Colon, Open Approach (ICD-10-PCS; 2018-11-30)
PROC: 5A1D70Z Performance of Urinary Filtration, Intermittent, Less than 6 Hours Per Day (ICD-10-PCS; 2018-12-01)
PROC: 5A1D70Z Performance of Urinary Filtration, Intermittent, Less than 6 Hours Per Day (ICD-10-PCS; 2018-12-04)
PROC: 5A1D70Z Performance of Urinary Filtration, Intermittent, Less than 6 Hours Per Day (ICD-10-PCS; 2018-12-06)
DX: A41.9 Sepsis, unspecified organism (principal); L89.154 Pressure ulcer of sacral region, stage 4; N18.6 End stage renal disease; G92 Toxic encephalopathy; E43 Unspecified severe protein-calorie malnutrition; G82.20 Paraplegia, unspecified; I13.2 Hypertensive heart and chronic kidney disease with heart failure and with stage 5 chronic kidney disease, or end stage renal disease; I50.32 Chronic diastolic (congestive) heart failure; I47.1 Supraventricular tachycardia; K92.2 Gastrointestinal hemorrhage, unspecified; A04.72 Enterocolitis due to Clostridium difficile, not specified as recurrent; K56.690 Other partial intestinal obstruction; E11.22 Type 2 diabetes mellitus with diabetic chronic kidney disease; I27.20 Pulmonary hypertension, unspecified; G35 Multiple sclerosis; B95.2 Enterococcus as the cause of diseases classified elsewhere; Z16.21 Resistance to vancomycin; D72.823 Leukemoid reaction; E11.40 Type 2 diabetes mellitus with diabetic neuropathy, unspecified; E86.0 Dehydration; D63.8 Anemia in other chronic diseases classified elsewhere; G47.33 Obstructive sleep apnea (adult) (pediatric); E66.01 Morbid (severe) obesity due to excess calories; K74.60 Unspecified cirrhosis of liver; I48.91 Unspecified atrial fibrillation; F41.9 Anxiety disorder, unspecified; J44.9 Chronic obstructive pulmonary disease, unspecified; M10.9 Gout, unspecified; E11.51 Type 2 diabetes mellitus with diabetic peripheral angiopathy without gangrene; Z68.38 Body mass index [BMI] 38.0-38.9, adult; Z95.820 Peripheral vascular angioplasty status with implants and grafts; Z87.81 Personal history of (healed) traumatic fracture; Z86.010 Personal history of colon polyps; Z86.73 Personal history of transient ischemic attack (TIA), and cerebral infarction without residual deficits; Z90.49 Acquired absence of other specified parts of digestive tract; Z90.710 Acquired absence of both cervix and uterus; Z99.2 Dependence on renal dialysis; Z87.891 Personal history of nicotine dependence; Z79.02 Long term (current) use of antithrombotics/antiplatelets; Z79.82 Long term (current) use of aspirin; Z79.899 Other long term (current) drug therapy; Z82.49 Family history of ischemic heart disease and other diseases of the circulatory system
CPT/HCPCS: 10879; 32100; 50010; 50011; 50093; 50101; 50386; 50445; 50953; 51412; 51708; 51712; 56524; 56526; 56527; 56530; 57092; 57103; 62110; 62900; 65090; 70005

== ENCOUNTER → 2018-11-23 | Outpatient (CLI) | payer OTHER ==
[~2018-11-23] MED LIST changes: +CARDIZEM CD 18180 M3 PO; +DAKIN'S473 M2 TOP; +EPOGEN3000 UNIT/ IV PUSH; +VANCOCIN 125 M125 M1 PO
== END ==
LOC: CAT 12:57
DX: N26.1 Atrophy of kidney (terminal) (principal); J98.11 Atelectasis; I25.10 Atherosclerotic heart disease of native coronary artery without angina pectoris; M47.815 Spondylosis without myelopathy or radiculopathy, thoracolumbar region

== ENCOUNTER → 2018-12-14 | Outpatient (CLI) | payer OTHER ==
[~2018-12-14] MED LIST changes: +ALBUTEROL2.5 MG/31 INH; +ASPIRIN EC81 M1 PO; +CARDIZEM CD 18180 M3 PO; +CARDIZEM CD240 MG PO; +DAKIN'S473 M2 TOP; +EPOGEN3000 UNIT/ IV PUSH; +MERREM1 GM IVPB; +PANTOPRAZOLE SO40 M1 PO; +VANCOCIN 125 M125 M1 PO
== END ==
LOC: CAT 15:42
DX: K92.2 Gastrointestinal hemorrhage, unspecified (principal); K56.609 Unspecified intestinal obstruction, unspecified as to partial versus complete obstruction; J98.4 Other disorders of lung; Z90.49 Acquired absence of other specified parts of digestive tract

== ENCOUNTER 2018-12-15 10:55 | Inpatient (IN) | payer OTHER ==
[~2018-12-15] VITALS: Ht 152.4 cm; Wt 93.5 kg
--- NOTE | ~2018-12-15 | HC ---
[facility] [place] [address] CONSULTATION Name: RADHA ALEMAN Room #: 452-P [facility] IN M.R.#: [id number] Admission: 12/15/18 ������������������ Attend Phys: Lucho Neal MD Discharge: ������������������ Date of : 50 Report #: [id number] THIS REPORT FOR: //name// CC: Wesley Neal DATE OF SERVICE: 12/16/2018 CONSULTATION: Infectious Diseases. HISTORY OF PRESENT ILLNESS: The patient is a 68-year-old -German female admitted to [facility] on 12/15/2018 because of bleeding from her recently revised colostomy. The patient has multiple sclerosis with a very large nonhealing sacral decubitus ulcer. The patient had a diverting colostomy for wound care. This developed a small-bowel obstruction and required a revision on 11/28/2018 to a transverse colostomy. There was bleeding in the bag and there was concern that she was bleeding and was admitted to the hospital. When the surgeon evaluated the colostomy they felt it was healthy and fine. Infectious Disease consultation was requested because of the ongoing wound. The patient was started on meropenem at [facility] as part of the wound care regimen. PAST MEDICAL HISTORY: Significant for multiple sclerosis leaving the patient essentially immobile. She has end-stage renal disease, COPD, atrial fibrillation, heart failure, pulmonary hypertension, pulmonary artery disease. She is obese. She deals with depression. She has had C. difficile disease. PAST SURGICAL HISTORY: Includes cholecystectomy, hysterectomy, mastectomy, suprapubic catheter placement and the colostomy with revision. FAMILY HISTORY: Noncontributory. SOCIAL HISTORY: The patient is . She currently is in a long-term acute hospital for wound care and quadriplegia. She has no history of tobacco, alcohol or drugs. REVIEW OF SYSTEMS: At this time, the patient says she feels pretty comfortable at baseline. She denies fevers, chills, sweats. The patient has no excess weakness or malaise. The patient denies any headache, sinus congestion, sore throat, trouble swallowing. The patient denies any cough, chest pain, shortness of breath. She denies any angina, syncope, palpitation. She really has no abdominal pain. She attributes the colostomy bleeding to when the nurses roll her on her side with a draw sheet that her pannus puts too much pressure on the colostomy. She has no pain. The colostomy has liquid stool. The patient denies any urinary problems. She has a suprapubic catheter. [place] [address] CONSULTATION Name: RADHA ALEMAN Cale Room #: 452-P [facility] IN ..#: [id number] Admission: 12/15/18 ������������������ Attend Phys: Lucho Neal MD Discharge: ������������������ Date of : 50 Report #: [id number] PHYSICAL EXAMINATION: GENERAL: The patient appears comfortable, alert, oriented, not in any distress. VITAL SIGNS: Show temperature is 37.4. SKIN: Shows the sacral wound, which measures approximately 20 x 2.5 x 5 cm. It appeared to be mostly clean granulation tissue after the last deep debridement. ENT: Negative. MENTAL STATUS: Normal. HEART: Sounds normal. LUNGS: Clear. ABDOMEN: Belly obese, soft, not tender. Devices and appliances as noted. The patient has a right subclavian catheter and the site appears unremarkable. EXTREMITIES: Obese, relatively flaccid, unremarkable. LABORATORY DATA: White count was 8.6, hemoglobin 7.8. At [facility] this week the white count was 9 and hemoglobin was 7.6, the platelets 296,000. Electrolytes normal. BUN 20, creatinine 2.6 after dialysis. The last sacral culture shows in July Morganella morganii, which was resistant to all antibiotics except for Merrem, Zosyn, and sulfa drugs. ASSESSMENT AND PLAN: At this point, the patient has a colostomy, which apparently is doing okay. She has a chronic nonhealing wound, which is very problematic because of her comorbidities and immobility. She has history of resistant dar and history of Clostridium difficile. At this time, I recommend we continue the meropenem as the doctors in [facility] had started. I recommend that we continue wound care. We can check a C. difficile and add probiotics to her regimen. I anticipate since the patient was brought here for concerns about bleeding colostomy, which has not been witnessed here, that she will probably return to long-term acute soon. ��������������������������������������������� ���������������������������������������� By: ��������������������������������������������� [id number] Juancarlos Keenan MD /nt
--- NOTE | ~2018-12-15 | HC ---
[facility] [place] [address] CONSULTATION Name: RADHA ALEMAN Room #: 452-P ADM IN M.R.#: [id number] Admission: 12/15/18 ������������������ Attend Phys: Lucho Neal MD Discharge: ������������������ Date of : 50 Report #: [id number] THIS REPORT FOR: //name// CC: Wesley Neal DATE OF SERVICE: 12/16/2018 REASON FOR CONSULTATION: End-stage renal disease. REASON FOR PRESENTATION: Blood in the colostomy. HISTORY OF PRESENT ILLNESS: Very complicated 68-year-old who is maintained on hemodialysis every Tuesday, Tuesday and Tuesday. She has sacral decubitus and was staying at the LTAC facility after having a diversion colostomy complicated by intestinal obstruction. She did have melenic stool and was sent to further evaluate. She dropped her hemoglobin in the last few days from a peak of around 9.9-7.5. She was sent to our facility to further evaluate and I am being consulted to manage her end-stage renal disease. PAST MEDICAL HISTORY: 1. End-stage renal disease. 2. Diabetes mellitus. 3. Multiple sclerosis. 4. Atrial fibrillation. 5. Peripheral vascular disease. 6. Sacral decubitus. PAST SURGICAL HISTORY: 1. Cholecystectomy. 2. AV graft. 3. Hysterectomy. 4. Mastectomy. 5. Tonsillectomy. 6. Suprapubic catheter. 7. Diversion colostomy. 8. Debridement. 9. Intestinal obstructions and adhesiolysis. FAMILY HISTORY: Significant for diabetes mellitus and hypertension. REVIEW OF SYSTEMS: GENERAL: No fever or chills, but significant for weakness and debility. CARDIOVASCULAR: No chest pain or palpitation. PULMONARY: No cough or hemoptysis. GASTROINTESTINAL: As per the history of present illness. [facility] [address] [place] [address] CONSULTATION Name: RADHA ALEMAN Room #: 452-P [facility] IN .R.#: [id number] Admission: 12/15/18 ������������������ Attend Phys: Lucho Neal MD Discharge: ������������������ Date of : 50 Report #: [id number] MUSCULOSKELETAL: She is debilitated with her illness and bedridden. SKIN: Sacral decubitus. ALLERGIES: None. MEDICATIONS: 1. Acetaminophen. 2. Celexa. 3. Diltiazem. 4. Neurontin. 5. Pantoprazole. PHYSICAL EXAMINATION: GENERAL: She is alert, oriented, nondistressed. VITAL SIGNS: Blood pressure is 126/59. HEAD AND NECK: No jugular venous distention. CHEST: No crackles. CARDIOVASCULAR: No rub detected. ABDOMEN: Soft with a diversion colostomy. There is a brown stool material in her bag. LOWER EXTREMITIES: Chronic changes, venous stasis, edema, chronic wounds. LABORATORY DATA: Reviewed. Hemoglobin 7.5. Chemistry from today, sodium of 136, potassium 3.5, chloride of 100, BUN of 20 and a creatinine of 2.6. ASSESSMENT, IMPRESSION AND PLAN: 1. End-stage renal disease. 2. Gastrointestinal bleeding. 3. Multiple sclerosis. 4. Sacral decubitus. 5. Status post diversion colostomy. 6. We will continue with the usual hemodialysis every Tuesday, Tuesday and Tuesday. 7. GI workup is in progress. 8. P.r.n. transfusion. 9. Off blood thinner. 10. We will continue to follow. ��������������������������������������������� ���������������������������������������� By: ��������������������������������������������� [id number] 17 Josep Monsalve MD /nt
[~2018-12-15 10:55] MED LIST changes: -ASPIRIN EC81 M1 PO; -PANTOPRAZOLE SO40 M1 PO
[2018-12-15 12:31] LABS: ABSOLUTE NEUTROPHILS 7.8 thou/uL (1.4-8.2); BASOPHILS 0.7 % (0.0-2.0); EOSINOPHILS 1.1 % (0.0-3.0); HEMATOCRIT 24.8 % (37.0-47.0); HEMOGLOBIN 8.2 gm/dL (12.0-15.0); LYMPHOCYTES 13.6 % (24.0-44.0); MCH 29.1 pg (26.0-34.0); MCHC 33.2 g/dL (28.0-37.0); MCV 87.9 fL (80.0-100.0); MONOCYTES 8.3 % (1.0-8.0); PLATELET COUNT 308 thou/uL (150-400); POLYS 76.3 % (36.0-66.0); RBC 2.82 mil/uL (4.20-5.00); RDW 16.2 % (10.5-14.5); WBC 10.2 thou/uL (4.0-11.0)
[2018-12-15 12:39] LABS: CALCIUM 8.3 mg/dL (8.5-10.1); CREATININE 2.6 mg/dL (0.6-1.0); POTASSIUM 3.5 mmol/L (3.5-5.1)
--- NOTE | 2018-12-15 13:29 | H ---
[facility] [place] [address] HISTORY AND PHYSICAL Name: RADHA ALEMAN Room #: 170-23 ADM IN .R.#: [id number] Admission: 12/15/18 ������������������ Attend Phys: Lucho Neal MD Discharge: ������������������ Date of : 50 Report #: [id number] THIS REPORT FOR: //name// CC: Wesley Neal DATE OF SERVICE: 12/15/2018 CHIEF COMPLAINT: Bleeding from colostomy. HISTORY OF PRESENT ILLNESS: The patient is a 68-year-old female with multiple medical problems who was admitted again today from [facility] for evaluation of bleeding from her colostomy. Two days ago, she began with passing bright red blood per nursing report. Yesterday, I saw her and she had gelatinous melenic type clots passing from the colostomy. I spoke with Dr. Paulino who assessed her and a CT was obtained. Her hemoglobin is varied around 7.6-8.2. Overnight, she has passed a few more clots as well. Hemodynamically, she has remained stable. The other concern was that there was an area of darkening on the 9 o'clock edge of her colostomy and there are concerns of ischemic bowel. PAST MEDICAL HISTORY: End-stage renal disease, anemia of chronic disease, stage 4 sacral wound. She has had a diverting colostomy for wound management. She has had multiple infections, diabetes type 2, multiple sclerosis, pulmonary hypertension, congestive heart failure. PAST SURGICAL HISTORY: As above. FAMILY HISTORY: Noncontributory. SOCIAL HISTORY: She has been in and out of the hospital here recently for several months. No known chronic alcohol or tobacco use. ALLERGIES: None. MEDICATIONS: Pepcid, aspirin, Plavix, Cardizem, Tylenol, Merrem, Lexapro. REVIEW OF SYSTEMS: She denies headache, chest pain, shortness of breath, abdominal pain, nausea, vomiting, diarrhea, constipation, dysuria or syncope. OBJECTIVE: VITAL SIGNS: Per nursing note. GENERAL: She was awake and alert, lying in bed. HEAD AND NECK: Unremarkable. LUNGS: Clear. HEART: Regular. [facility] [address] [place] [address] HISTORY AND PHYSICAL Name: ASHRADHA Room #: 170-23 [facility] IN ..#: [id number] Admission: 12/15/18 ������������������ Attend Phys: Lucho Neal MD Discharge: ������������������ Date of : 50 Report #: [id number] ABDOMEN: Soft, normoactive bowel sounds with colostomy in place. There seems to be some bloody discharge. EXTREMITIES: No edema. NEUROLOGIC: Motor strength 3/5 throughout. She was alert and oriented. LABORATORY DATA: My assessment of her was performed today at [facility] at approximately 0900. Hemoglobin is 8.2, creatinine is 2.6. She has received hemodialysis as scheduled earlier this morning. I have spoken to Dr. Paulino yesterday evening and Dr. Segundo this morning. ASSESSMENT: 1. Gastrointestinal bleed. 2. Colostomy complication. 3. End-stage renal disease. 4. Anemia of chronic disease. 5. Stage IV sacral wound. 6. Multiple sclerosis, bedbound status. 7. Hypertension. 8. Diabetes type 2, by history. 9. Peripheral artery disease by history. PLAN: Her aspirin and Plavix were discontinued at the outlying facility yesterday. Hemoglobin seems to have stabilized. Dr. Segundo will see her in consultation to assess the colostomy. She has had a CT performed yesterday. Her routine dialysis was performed this morning. We will have Dr. Harrison follow her care along with Dr. Eduardo Costello has been managing antibiotic coverage and Dr. Walker for the wound care service. I will ask GI to see her again as well. She had heme positive stools last visit, previously had an EGD in 2017 and quite some time back a colonoscopy. ��������������������������������������������� <ELECTRONICALLY SIGNED> ���������������������������������������� By: Lucho Neal MD ��������������������������������������������� 12/15/18 1329 1306 1324 Lucho Neal MD /nt
[2018-12-15 14:43] LABS: ALBUMIN 1.4 g/dL (3.4-5.0); DIRECT BILIRUBIN 0.2 mg/dL (<0.1-0.3); TOTAL BILIRUBIN 0.4 mg/dL (<0.1-1.0); TOTAL PROTEIN 6.2 g/dL (6.4-8.2)
[2018-12-15 18:00] VITALS: BP 123/59
--- NOTE | 2018-12-15 18:56 | NUR ---
Received pt from the ER, currently on NPO and consults for Sanya made by the ER. Double lumen central line patent. Colostomy bag draining jelly brick red stool. Photo for pressure ulcer on her scarum taken, wet to dry dressing done. Pt now in bed.
[2018-12-15 21:11] VITALS: BP 135/60
[2018-12-16] VITALS (7 sets, daily range): BP systolic 126–155; BP diastolic 49–70
--- NOTE | 2018-12-16 02:26 | NUR ---
SLEPT PART OF SHIFT. REPOSITIONED EVERY 2-3 HOURS FOR COMFORT AND SKIN CARE. WORKING ON GOALS AND PLAN OF CARE FOR NOC. COMPLAINTS OF PAIN WHEN TURNING. BUT FALLS ASLEEP. NOT PROGRESSING TOWARDS DISCHARGE GOALS AT THIS TIME. ADMISSION PROCESS COMPLETED. CONTINUE TO ASSES.
[2018-12-16 06:40] LABS: HEMATOCRIT 22.4 % (37.0-47.0); HEMOGLOBIN 7.5 gm/dL (12.0-15.0); MCH 29.4 pg (26.0-34.0); MCHC 33.4 g/dL (28.0-37.0); MCV 88.1 fL (80.0-100.0); RBC 2.55 mil/uL (4.20-5.00); WBC 8.6 thou/uL (4.0-11.0)
[2018-12-17 03:26] VITALS: BP 116/51
--- NOTE | 2018-12-17 03:31 | NUR ---
PROGRESS PT A/O X4 REPORTS PAIN TO HER ABDOMEN AND SACRUM WITH TURNS, STATES TURNING TO RIGHT HURTS HER COLOSTOMY, REPOSITIONED Q2HRS, DID NOT TURN HER FAR TO RIGHT WITH A LITTLE RELIEF. PAIN CONTROLLED WITH HYDROCODONE. US RESULTS FROM RIGHT ARM SHOWED A CLOT IN HER RIGHT INTERNAL JUGULAR NOTIFIED, ORDERED HER CENTRAL LINE PULLED AND HE WILL HAVE A PLAN TO TREAT IN THE MORNING. SUPRA PUBIC CATHER IN PLACE VERY SCANT OUTPUT. COLOSTOMY PUTTING OUT SMALL AMOUNTS OF DARK BROWN LOOSE STOOL CDIFF SAMPLE SENT TO LAB. COLOSTOMY INTACT, MIDLINE INCISION COVERED WITH DRSG REMAINS C/D/I. SCARAL DRSG INTACT SCANT SHADOW OF DRAINAGE NOTED. RIGHT FISTULA SHUNT WITH GOOD BRUIT AND TRILL. VSS, TELE INTACT READING SR.
[2018-12-17 06:07] LABS: HEMATOCRIT 21.1 % (37.0-47.0); HEMOGLOBIN 7.1 gm/dL (12.0-15.0)
--- NOTE | 2018-12-17 07:44 | NUR ---
PROGRESS PT A/O X4 REPORTS PAIN TO SACRUM AND RIGHT ABDOMEN NEAR COLOSTOMY. MIDLINE INCISON INTACT CLEAN AND DRY, SACRAL DRSG INTACT WITH A FAINT SHADOW OF DRAINAGE. REPOSITIONED Q2HRS. IV FLUIDS INFUSING ORDERED. US RESULTS CALLED TO ORDER TO DC CENTRAL LINE OBTAINED AND COMPLETED, CATHETER REMOVED WITHOUT DIFFICULTY TIP INTACT, SITE WITHOUT S/S OF INFECTION. MESSAGE LEFT FOR IV THERAPY RE; NEED FOR IV ACCESS DAY NURSE TO F/U.
[2018-12-17 08:19] VITALS: BP 137/62
--- NOTE | 2018-12-17 13:24 | HC ---
[facility] [place] [address] CONSULTATION Name: RADHA ALEMAN Room #: 452-P [facility] IN M.R.#: [id number] Admission: 12/15/18 ������������������ Attend Phys: Lucho Neal MD Discharge: ������������������ Date of : 50 Report #: [id number] THIS REPORT FOR: //name// CC: Wesley Neal DATE OF SERVICE: 12/16/2018 WOUND CARE CONSULTATION REASON FOR CONSULTATION: Possible colostomy dysfunction with bleeding from stoma. Wound care for huge sacral stage 4 pressure ulcer. HISTORY OF PRESENT ILLNESS: The patient is a 68-year-old woman well known to me from her care at [facility]. We have been treating her for a huge sacral stage 4 pressure ulcer. She has had a diverting colostomy done by Dr. Segundo and Dr. Paulino. There has been some colostomy dysfunction in the past, which has been assessed and the patient did require a colostomy revision through a midline incision. The patient was transferred to [facility] at this time after the report at [facility] that she had passage of blood clots per the stoma. General surgeons plan to evaluate her stoma and the bleeding. Wound care is consulted for further care of her sacral stage 4 pressure ulcer. 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 PAST SURGICAL HISTORY: Diverting colostomy with revision, debridement of sacral stage 4 pressure ulcer. ALLERGIES: None. MEDICATIONS: See chart. PHYSICAL EXAMINATION: GENERAL: Shows morbidly obese woman who is alert and conversant. HEENT: Mucous membranes are moist. NECK: Supple. LUNGS: Respirations are unlabored. ABDOMEN: Shows healing midline incision with some old hematoma draining from the incision. Incision line is intact. Colostomy site is easily visualized through the stoma bag; however, there is brown stool in the colostomy bag, which appears normal. [facility] [address] [place] [address] CONSULTATION Name: RADHA ALEMAN Room #: 452-P [facility] IN ..#: [id number] Admission: 12/15/18 ������������������ Attend Phys: Lucho Neal MD Discharge: ������������������ Date of : 50 Report #: [id number] EXTREMITIES: No lower extremity wounds. Examination of the patient's back shows a huge sacral stage 4 pressure wound, status post debridement. The wound measures approximately 18 cm x 15 cm x 4 cm deep. Right lateral skin edge and subcutaneous tissues show some necrosis. There is some minimal necrotic tissue at the base of the wound. Wound was repacked with quarter strength Dakin's. IMPRESSION: 1. Morbid obesity. 2. Diabetes mellitus type 2 with skin ulcer. 3. Sacral stage 4 pressure ulcer, status post debridement. 4. Possible colostomy dysfunction with blood per stoma. PLAN: We will continue dressing changes with quarter strength Dakin's packing daily for the large sacral stage 4 pressure ulcer. This may require some further debridement at some point in time. There are some macerated skin areas around the sacrum, which was treated with barrier cream. General Surgery will assess the patient's stoma and evaluate for origin of bleeding per colostomy. Wound care team will follow. ��������������������������������������������� <ELECTRONICALLY SIGNED> ���������������������������������������� By: Keagan Hodge MD ��������������������������������������������� 12/17/18 1324 [id number] Keagan Hodge MD /nt
[2018-12-17 14:22] VITALS: BP 107/57
--- NOTE | 2018-12-17 14:50 | NUR ---
ASSUMED CARE AT 0700. AXOX4. WOUND CARE DONE. AT BEDSIDE. AT BEDSIDE. EDG TOMORROW. NO BLOOD THINNER FOR R IJ THROMBUS TILL EDG R/O BLEEDING. IV TEAM TO PLACE ANOTHER IV ACCESS AWAITING IV TEAM. PER , WILL NOT BE PERFORMING ANY SURGERIES AT THIS TIME. NO S/S ACUTE DISTRESS NOTED OR REPORTED AT THIS TIME. WILL CONT TO MONITOR ANY CHAGNES IN CONSITION.
--- NOTE | 2018-12-17 15:23 | NUR ---
VASCULAR ACCESS NOTIFIED TODAY THAT RTDL LINE WAS DC'D OVERNIGHT DUE TO A DVT IN HER RT IJ...THE LINE WAS IN HER RT EJ AND NOT HER IJ. WOULD RECOMMNED TREATING THE DVT AND NOT PULLING LINE PER [facility]IDENCE BASED PRACTICE AND STANDARDS. THIS LINE WAS PLACED DURING HER LAST ADMISSION, IN THE EJ, BY THIS RN, BECAUSE HER LT AND RT IJ'S WERE NOT COMPRESSIBLE AND LINE PLACEMENT WAS UNSUCCESSFUL IN THE BILAT IJ'S. PT HAS A FISTULA IN HER RT ARM. CALL PLACED TO DR JOLLY TO CLARIFY WHAT LINE WAS NEEDED WE HAVE VERY LIMITED OPTIONS FOR HER. HE STATED HE WOULD HOLD LINE PLACEMENT FOR TODAY AND HAVE THE SITUATION RE-EVALUATED BY DR BLISS ON TUESDAY. RECOMMEND A TUNNELED LINE IF A VASCULAR ACCESS DEVICE IS INDICATED, PLACED BY IR, ON TUESDAY, DUE TO HER LIMITATIONS. RELAYED INFO TO RN FOR THIS PT.
[2018-12-17 19:19] VITALS: BP 123/64
[2018-12-18 03:07] VITALS: BP 116/54
[2018-12-18 07:05] VITALS: BP 112/50
--- NOTE | 2018-12-18 08:17 | NUR ---
PROGRESS PT ALERT AND ORIENTED, PERIPHERAL IV PLACED BY IV THERAPY INTO LEFT WRIST, IVF'S INFUSING LEFT ARM SWOLLEN NOTIFIED AND AND ORDERED US TO R/O DVT, PLAN TO HAVE EGD TODAY AND POSSIBLY DIALYSIS. TO DISCUSS POC WITH BEFORE CENTRAL LINE ORDERED OR PLACED. CONTINUE POC.
--- NOTE | 2018-12-18 09:15 | NUR ---
WOUND CONSULT: PT. WAS SEEN TODAY BY DR. BOURGEOIS AND MYSELF. PT. IS WELL KNOWN TO THE WOUND CARE TEAM. PT. HAS A STAGE 4 PRESSURE ULCER TO HER SACRUM ALONG WITH A HEALING STAGE 3 PRESSURE ULCER TO HER LEFT LATERAL CALF. PT. WOUNDS DO NOT APPEAR TO BE INFECTED AT THIS TIME AND ARE PROGRESSING TOWARDS HEALING. RECOMMENDATIONS: WOUND CARE TO LEFT LATERAL CALF: GENTLY CLEANSE WITH WOUND CLEANSER OR NORMAL SALINE, COVER WITH OPTIFOAM BORDER, COMPLETE CARES M/W/F AND PRN SOILAGE. WOUND CARE TO SACRUM: GENTLY CLEANSE AREA WITH WOUND CLEANSER OR NORMAL SALINE, PACK WITH DAKIN MOIST KERLIX, COVER WITH ABD, SECURE WITH TAPE, COMPLETE CARES DAILY. TURN Q2 HOURS KEEP PT. OFF WOUNDS MUCH POSSIBLE KEEP ON VALENTINO MATRESS. PT. AND STAFF NURSE WERE INSTRUCTED ON PLAN OF CARE.
[2018-12-18 10:14] LABS: HEMATOCRIT 23.1 % (37.0-47.0); HEMOGLOBIN 7.7 gm/dL (12.0-15.0); MCH 29.3 pg (26.0-34.0); MCHC 33.1 g/dL (28.0-37.0); MCV 88.4 fL (80.0-100.0); RBC 2.61 mil/uL (4.20-5.00); RDW 16.6 % (10.5-14.5); WBC 10.5 thou/uL (4.0-11.0)
[2018-12-18 10:20] LABS: CALCIUM 8.3 mg/dL (8.5-10.1); POTASSIUM 3.8 mmol/L (3.5-5.1)
--- NOTE | 2018-12-18 11:13 | NUR ---
ASSUMED CARE AT 0700. ALERT AND ORIENTED. REPORTS DIDN'T SLEEP WELL LAST NIGHT. C/O PAIN 07/26, PT HAS BEEN ON NPO FOR EGD. NIGHT NURSE CALLED DR. DANIELLE AND RECEIVED ORDER TO GIVE HYDROCODONE WITH A SIP OF WATER BEFORE EGD. PT HAD VENOUS DOPPLER ON LEFT ARM FOR SWELLING. IV ON LEFT HAND INFILTRATED. IV TEAM CALL AND REINSERTED IV 20 G ON LEFT AC. STAT LABS DRAW. PT LEFT UNIT FOR EGD AT THIS MOMENT. RODOLFO, INFECTION NURSE CAME AND INFORMED THIS GROUND WORKER THAT PT NEEDS TO BE ON ISOLATION FOR VRE ON WOUND Oct. WOUND CARE DONE BY THIS AM. CONTINUE TO TURN PT Q2HRS. LOW AIR MATRESS APPLIED. SCD WHILE IN BED. FALL PRECAUTION IN PLACE. CALL LIGHT WITHIN REACH. SAT 99% ON 3L. WILL CONTINUE TO MONITOR.
--- NOTE | 2018-12-18 13:44 | NUR ---
chart review, cm visited with pt at bedside. embalmer apprentice assistance with lunch. pt a & o x 3 with some forgetfulness, pleasant and able to make her needs know. intro to dcp, and transition of care " will go back to [facility]. some times need help with meals, use oxygen. on dialysis"/mary. spoke [facility] liaison. per son manfred "yes going back [facility] and then looking into [facility], not going back to [facility]"/son
[2018-12-18 15:03] VITALS: BP 126/60
[2018-12-18 20:14] VITALS: BP 94/54
--- NOTE | 2018-12-18 23:44 | NUR ---
PT TELEMETRY READING BIGEMINY AT THIS TIME TO MONITOR.
[2018-12-19 03:59] VITALS: BP 111/46
[2018-12-19 08:05] VITALS: BP 97/48
--- NOTE | 2018-12-19 08:07 | NUR ---
PROGRESS PT A/O X4 MORE RELAXED AND COMFORTABLE THIS SHIFT HAD DIALYSIS AND TOLERATED IT WELL, HYDROCODONE FOR PAIN GIVEN WITH EFFECT, PT SLEPT MOST OF SHIFT REPOSITIONED Q2HRS AND PROFO BOOTS ORDERED TO FLOAT HEELS. IV TO LAC WORKING WITHOUT DIFFICULTY.
[2018-12-19 08:46] VITALS: BP 97/48
[2018-12-19] MEDS ORDERED: PANTOPRAZOLE SO40 M1 PO (09:29)
[2018-12-19] MEDS ORDERED: ASPIRIN EC81 M1 PO (09:33)
--- NOTE | 2018-12-19 09:57 | NUR ---
PHYSICAIN INDICATED THAT PT IS MEDICALLY STABLE TO DISHCARGE TO [facility] THIS DAY. CHART COPY ORDERED. ORDERS TO BE FAXED. TRANSPORT TO BE ARRANGED BETWEEN 11:00-11:30 VIA [facility]OUGH [facility]. REPORT TO BE CALLED TO . PT'S SON AND PT AWARE AND AGREEABLE. NO OTHER CM INTERVENTION INDICATED AT THIS TIME. CASE CLOSED.
--- NOTE | 2018-12-19 10:38 | NUR ---
patient dc today to [facility], [facility]oc made arrangements for [facility] to pickup at 1100am, unit notified, abhinav Ramos notified, CC made, ambulance form put on from of CC that 4w front office secretary Margarita made. DP faxed to [facility]. Arabella/Anitha notified.
--- NOTE | 2018-12-19 11:32 | NUR ---
ASSUMED CARE AT 0700. AXOX4. SEEN BY AND GI AT BEDSIDE. RECEVIED AN ORDER TO D/C BACK TO [facility]. COLOSTOMY INTACT, SUPRAPUBIC CATHETER INTACT. WOUND CARE RENDERED AND PICTURES TAKEN. IV REMOVED AND TELE REMOVED. NO S/S ACUTE DISTRESS NOTED OR REPORTED UPON DEPARTURE. REPORT CALLED TO [facility] AT [facility]. PRESCRIPTION AND CHART COPY SENT WITH PT.
--- NOTE | 2018-12-22 08:19 | P ---
[place] [address] PROCEDURE REPORT Name: RADHA ALEMAN Room #: 452-P [facility] IN ..#: [id number] Admission: 12/15/18 ������������������ Attend Phys: Lucho Neal MD Discharge: 12/19/18 ������������������ Date of : 50 Report #: [id number] THIS REPORT FOR: //name// CC: Wesley Paulino DATE OF SERVICE: 12/18/2018 PROCEDURE PERFORMED: Upper endoscopy. HISTORY OF PRESENT ILLNESS: The patient is a 68-year-old female with multiple medical problems including end-stage renal disease on hemodialysis Tuesday, Tuesday and Tuesday. She has had two colostomy surgeries within the last 2 months, a revision due to an obstruction. She has chronic anemia. She had a drop in her hemoglobin down to 7.1 yesterday and hemoglobin today is 7.7. There was evidence of a small amount of bright red blood in the ostomy on admission. She denies any abdominal pain at this time. Last EGD was several years ago. Plan is for EGD today. DESCRIPTION OF PROCEDURE: The risks and benefits of the procedure were explained to the patient those risks including but not limited to bleeding, perforation and the risk of sedation. She understood these risks and gave informed consent. Sedation was given using propofol and ketamine per anesthesia. Next, using a standard Olympus upper endoscope, the scope was placed in the patient's mouth and advanced under direct vision through the esophagus, stomach and into the second portion of the duodenum. The larynx was normal in appearance. The esophagus was normal throughout. The GE junction was normal. There was a mild gastritis noted in the mid body. No evidence of ulcerations or erosions. No evidence of bleeding. I did not obtain biopsies at this time. The patient had recently been on aspirin and Plavix. The pylorus was normal and patent. The duodenal bulb, first and second portion were all normal. No evidence of AVMs or blood throughout the duodenum as well. The scope was then withdrawn and the procedure terminated. The patient tolerated the procedure well. IMPRESSION: 1. Mild gastritis. No evidence of bleeding. 2. Otherwise, normal upper endoscopy. RECOMMENDATIONS: We will continue to monitor hemoglobin off anticoagulation therapy. Would recommend continuing long-term PPI therapy. [address] [address] PROCEDURE REPORT Name: RADHA ALEMAN Room #: 452-P [facility] IN ..#: [id number] Admission: 12/15/18 ������������������ Attend Phys: Lucho Neal MD Discharge: 12/19/18 ������������������ Date of : 50 Report #: [id number] Thank you for allowing me to participate in her care. ��������������������������������������������� <ELECTRONICALLY SIGNED> ���������������������������������������� By: Job García MD ��������������������������������������������� 12/22/18 0819 [id number] Job García MD /nt
== END 2018-12-19 11:30 | DRG 393 ==
LOC: EROBS 10:55 → 4W 12:40
PROVIDERS: Internal Medicine Rheumatology; Nurse Practitioner; Specialist; ADMIT Internal Medicine Geriatric Medicine
PROC: 0DJ08ZZ Inspection of Upper Intestinal Tract, Via Natural or Artificial Opening Endoscopic (ICD-10-PCS; principal; 2018-12-18)
PROC: 5A1D70Z Performance of Urinary Filtration, Intermittent, Less than 6 Hours Per Day (ICD-10-PCS; principal; 2018-12-18)
DX: K94.01 Colostomy hemorrhage (principal); L89.154 Pressure ulcer of sacral region, stage 4; N18.6 End stage renal disease; G82.20 Paraplegia, unspecified; I82.C21 Chronic embolism and thrombosis of right internal jugular vein; I13.2 Hypertensive heart and chronic kidney disease with heart failure and with stage 5 chronic kidney disease, or end stage renal disease; Z68.41 Body mass index [BMI] 40.0-44.9, adult; E11.22 Type 2 diabetes mellitus with diabetic chronic kidney disease; E11.51 Type 2 diabetes mellitus with diabetic peripheral angiopathy without gangrene; I48.2 Chronic atrial fibrillation; G35 Multiple sclerosis; I27.20 Pulmonary hypertension, unspecified; E66.01 Morbid (severe) obesity due to excess calories; E11.622 Type 2 diabetes mellitus with other skin ulcer; I50.9 Heart failure, unspecified; F32.9 Major depressive disorder, single episode, unspecified; D63.8 Anemia in other chronic diseases classified elsewhere; D72.829 Elevated white blood cell count, unspecified; Z90.49 Acquired absence of other specified parts of digestive tract; Z90.710 Acquired absence of both cervix and uterus; Z90.10 Acquired absence of unspecified breast and nipple; Z82.49 Family history of ischemic heart disease and other diseases of the circulatory system; Z83.3 Family history of diabetes mellitus; Y83.3 Surgical operation with formation of external stoma as the cause of abnormal reaction of the patient, or of later complication, without mention of misadventure at the time of the procedure; K29.70 Gastritis, unspecified, without bleeding
CPT/HCPCS: 10045; 10047; 32100; 62110; 62900; 70005

== ENCOUNTER 2019-01-05 14:21 | Inpatient (IN) | payer OTHER ==
[~2019-01-05] VITALS: Ht 152.4 cm; Wt 87.3 kg
--- NOTE | ~2019-01-05 | HC ---
[facility] [place] [address] CONSULTATION Name: RADHA ALEMAN Room #: 431-P [facility] IN M.R.#: [id number] Admission: 01/05/19 ������������������ Attend Phys: Joel Knox Discharge: ������������������ Date of : 50 Report #: [id number] THIS REPORT FOR: //name// CC: Wesley Costello DATE OF SERVICE: 01/06/2019 NEPHROLOGY CONSULTATION ATTENDING PHYSICIAN: Dr. Clark Costello. REASON FOR CONSULTATION: End-stage renal disease. HISTORY OF PRESENT ILLNESS: This patient, well known to our service, is a 68-year-old patient with multiple sclerosis, diabetes and end-stage renal disease, on dialysis for the last 6 months or so. The patient has had difficulty with a decubitus sacral ulcer, had a diverting colostomy complicated by intestinal obstruction resulting in a revision of the diverting colostomy and improvement. She has been convalescing at [facility]. The decubitus ulcer has been improving, but is now in need of further debridement and she is admitted here. PAST MEDICAL HISTORY: End-stage renal disease, multiple sclerosis with paraplegia, peripheral vascular disease with relatively recent peripheral arterial endarterectomies, sacral decubitus as mentioned, history of cholecystectomy and AV graft in her right arm, chronic suprapubic catheter. FAMILY HISTORY: Positive for diabetes and hypertension. SOCIAL HISTORY: No cigarettes or alcohol. Resides in extended care facility. REVIEW OF SYSTEMS: GENERAL: She has been feeling reasonably well. EYES: Vision is fine. ENT: Hearing okay, swallows okay. No mouth sores. ENDOCRINE: Positive for the diabetes. RESPIRATORY: No shortness of breath, pleuritic pain, cough or hemoptysis. CARDIAC: No angina, chest pain or heart failure. GASTROINTESTINAL: Lately, now has been eating reasonably well after her obstruction was resolved. GENITOURINARY: Has chronic suprapubic catheter, making less and less urine. NEUROLOGIC: She has the paraparesis and history of multiple sclerosis. MEDICATIONS: Please see charts. [facility] [address] [place] [address] CONSULTATION Name: RADHA ALEMAN Room #: 431-P [facility] IN ..#: [id number] Admission: 01/05/19 ������������������ Attend Phys: Joel Knox Discharge: ������������������ Date of : 50 Report #: [id number] PHYSICAL EXAMINATION: GENERAL: This is a reasonably comfortable appearing patient, awake and alert, quite lucid. SKIN: Unremarkable. SKELETAL: Shows her to be somewhat obese. HEENT: Extraocular movements are full. Vision is intact. Mucous membranes are moist. NECK: Supple. CHEST: Clear to auscultation. HEART: Regular. ABDOMEN: Soft, nontender with colostomy in place. EXTREMITIES: Show no edema. NEUROLOGIC: Shows extreme weakness in the legs. She can move them just a little bit. LABORATORY DATA: Hemoglobin 7.1. Sodium 133, potassium 3.9, chloride 97, bicarbonate 30, creatinine 2.7. ASSESSMENT AND PLAN: 1. End-stage renal disease. We will continue 3 times weekly dialysis, appropriate diet and medications. 2. Hypertension, reasonably well controlled. 3. Multiple sclerosis with paraplegia. 4. Sacral decubitus ulcer in need of debridement. 5. Diabetes mellitus. 6. Chronic indwelling suprapubic catheter. 7. Status post diverting colostomy. ��������������������������������������������� ���������������������������������������� By: ��������������������������������������������� [id number] Cesario Harrison MD /nt
[~2019-01-05 14:21] MED LIST changes: +ASPIRIN EC81 M1 PO; +PANTOPRAZOLE SO40 M1 PO
--- NOTE | 2019-01-05 18:34 | NUR ---
PT ARRIVED TO THIS UNIT ROOM 431 CAME ON STRETCHER VAN WITH ASSIST TIMES 4 PATIENT MOVED TO BED. PT STATES WAS GIVEN PRN PAIN MED FROM [facility] BEFORE SHE LEFT. PT WAS WEIGHTED AND V.S.'S. TAKEN. LUNGS CTA HAS BOWEL SOUNDS XS 4. HAS SUPRA CATH. AND COLOSTOMY. HAS RIGHT AV DIAYLSIS CATH HAS DIAYLSIS M-W-F HAD TODAY WITH 1200 CC TAKEN OFF. PT HAS O2 AT 2L/ NC. PT IS 68 YO FEMALE PLEASANT AND COOPERATIVE WITH CARE. PT HAS NUMEROUS WOUNDS THAT NOC SHIFT WILL MEASURSE AND TAKE PHOTOS OF. PT IS AC/ HS BLOOD SUGARS. [address] JOLLY AND RECIEVED ORDERS FOR RENAL DIET CBC AND RENAL PANEL 01/06/[address] WILSON AND DR RIDDLE CONT MEDS FROM [facility].
[2019-01-05 20:25] LABS: HEMATOCRIT 21.7 % (37.0-47.0); HEMOGLOBIN 7.1 gm/dL (12.0-15.0); MCHC 32.5 g/dL (28.0-37.0); MCV 92.2 fL (80.0-100.0); RBC 2.35 mil/uL (4.20-5.00); RDW 21.4 % (10.5-14.5); WBC 12.8 thou/uL (4.0-11.0)
[2019-01-05 20:45] LABS: ALBUMIN 1.5 g/dL (3.4-5.0); CALCIUM 8.8 mg/dL (8.5-10.1); CREATININE 2.7 mg/dL (0.6-1.0); POTASSIUM 3.9 mmol/L (3.5-5.1)
[2019-01-05 21:22] VITALS: BP 110/45
[2019-01-05] MEDS ORDERED: MIDODRINE HCL 55 M1 PO (23:55)
[2019-01-06] MEDS ORDERED: ZOFRAN ODT4 MG DISSOLVE (00:01)
[2019-01-06] MEDS ORDERED: MANNITOL IV PUSH (00:01)
[2019-01-06] MEDS ORDERED: NOVOLOG100 UNIT/1 SUBQ (00:04)
[2019-01-06 04:45] VITALS: BP 115/45
--- NOTE | 2019-01-06 05:56 | NUR ---
PT ARRIVED ON UNIT 1600. PT ALERT AND ORIENTTED. ASSESSMENT COMPLETED. VSS. ADMISSION COPMPLETED. PICTURES OF WOUNDS TAKEN AND DOCUMENTED. BOBBI AV DIALYSIS FISTULA BRUIT AND THRILL PRESENT. IV DRESSING C/D/I, NO SIGNS OF INFITLRATION. DENIES N/V AT THIS TIME. PT REPORTS PAIN IN BOTTOM, SEE EMAR. MEDICATIONS RESTARTED. PT ON 2L OXYGEN VIA NC. WILL CONTINUE POC UNTIL EOS.
[2019-01-06 07:50] VITALS: BP 115/48
--- NOTE | 2019-01-06 15:17 | NUR ---
PT A&OX4, COLOSTOMY BAG NOT INTACT, ABD WOUND TO IMMEDIATE L OF COLOSTOMY IS NECROTIC WITH FOUL SMELL. PT WITH POOR APPETITE. SUPRA PUBIC CATH INTACT WITH CLOUDY/ SEDIMENT URINE. NON AMB. COLOSTOMY BAG CHANGED, WOUND DRSG CHANGED.
[2019-01-06 17:25] VITALS: BP 122/52
[2019-01-06 21:00] VITALS: BP 114/49
[2019-01-07 03:10] VITALS: BP 122/45
--- NOTE | 2019-01-07 04:25 | NUR ---
ASSESSMENT COMPLETED.PT REPOSITIONED WHILE IN BED.SUPRAPUBIC CATH AND COLOSTOMY IN PLACE.R UPPER ARM FISTULA POSITIVE FOR THRILL AND BRUIT.PT C/O PAIN ON HER SACRUM,MANAGED WITH MEDICATION.FALL & ISOLATION PRECAUTIONS IN PLACE.CALL LIGHT WITHIN REACH.
--- NOTE | 2019-01-07 09:07 | H ---
[facility] [place] [address] HISTORY AND PHYSICAL Name: RADHA ALEMAN Room #: 431-P ADM IN M.R.#: [id number] Admission: 01/05/19 ������������������ Attend Phys: Joel Knox Discharge: ������������������ Date of : 50 Report #: [id number] THIS REPORT FOR: //name// CC: Wesley Costello DATE OF SERVICE: 01/05/2019 CHIEF COMPLAINT: Wounds. HISTORY OF PRESENT ILLNESS: The patient is a 68-year-old female with multiple medical problems who was electively admitted from [facility] facility for surgical debridement of a sacral wound. She has a history of MS and has been bedbound for some time and has developed wounds somewhere through the course of her illness and hospitalizations. She had received a diverting colostomy some months back in order to facilitate sacral wound care. She had a GI bleed recently and a small-bowel obstruction, which required a revision of her colostomy approximately 2 months ago. Recent hospitalization for GI bleed and Plavix was discontinued. There was some gastritis or nonbleeding areas in the upper tract, but nothing in the colon tract. She is now 3 months post-stenting of lower extremities, so the decision was made to discontinue Plavix. PAST MEDICAL HISTORY: MS, end-stage renal disease, colostomy complications requiring revision a month ago. Upper GI bleed due to gastritis. Small-bowel obstruction due to adhesions, surgical treatment a month ago. Hypertension, multiple sclerosis, sacral decubitus wound. She had a DVT in the right internal jugular related to a central line, which was removed. PAST SURGICAL HISTORY: As above. FAMILY HISTORY: Noncontributory. SOCIAL HISTORY: She has been living in care facilities for several months. No known alcohol or tobacco use. ALLERGIES: None. MEDICATIONS: Midodrine, DuoNeb, Procrit, hydrocodone, Tylenol, Lexapro, Zofran, Protonix, insulin, vitamin C, allopurinol. REVIEW OF SYSTEMS: She denies headache, chest pain, shortness of breath, abdominal pain, nausea, vomiting, diarrhea, constipation, dysuria, syncope. OBJECTIVE: VITAL SIGNS: Temperature 36.6, pulse 84, respirations 20, blood pressure 115/45, O2 sat 100% on 2 liters. GENERAL: She is awake and alert, in no distress. [address] [address] HISTORY AND PHYSICAL Name: RADHA ALEMAN Cale Room #: 431-P [facility] IN M.R.#: [id number] Admission: 01/05/19 ������������������ Attend Phys: Joel Knox Discharge: ������������������ Date of : 50 Report #: [id number] HEAD AND NECK: Unremarkable. LUNGS: Clear. HEART: Regular. ABDOMEN: Soft, normoactive bowel sounds. EXTREMITIES: No edema. ASSESSMENT: 1. Stage 4 sacral wound. 2. Colostomy in place. 3. End-stage renal disease. 4. Anemia of chronic disease. 5. Diabetes type 2. 6. Multiple sclerosis. 7. Severe protein-calorie malnutrition. PLAN: I will ask the surgical and wound care teams to assess her in preparation for surgical debridement. Once stabilized, then return to the LTAC facility. ��������������������������������������������� <ELECTRONICALLY SIGNED> ���������������������������������������� By: Lucho Neal MD ��������������������������������������������� 01/07/1907 0826 Lucho Neal MD /nt
--- NOTE | 2019-01-07 17:01 | HC ---
[facility] [place] [address] CONSULTATION Name: RADHA ALEMAN Room #: 431-P ADM IN M.R.#: [id number] Admission: 01/05/19 ������������������ Attend Phys: Joel Knox Discharge: ������������������ Date of : 50 Report #: [id number] THIS REPORT FOR: //name// CC: Wesley Costello DATE OF SERVICE: 01/06/2019 ADDENDUM For her sacral stage 4 pressure wound, we will treat the wound with quarter strength Dakin's packing to the wound twice daily until she goes to surgery for debridement on 01/06/2019. The patient's midline abdominal incision wound, which previously had a hematoma, has been open with a disruption of the skin and subcutaneous tissue down to the fascia. Wound measures 9 cm long x 2.5 cm wide x 2 cm deep. Wound is clean with exposed subcutaneous adipose tissue. Fascia was intact. We will pack this wound with quarter strength Dakin's gauze packing twice daily. ��������������������������������������������� <ELECTRONICALLY SIGNED> ���������������������������������������� By: Keagan Hodge MD ��������������������������������������������� 01/07/19 1701 1023 28 Keagan Hodge MD /nt
--- NOTE | 2019-01-07 17:01 | HC ---
[facility] [place] [address] CONSULTATION Name: RADHA ALEMAN Room #: 431-P ADM IN M.R.#: [id number] Admission: 01/05/19 ������������������ Attend Phys: Joel Knox Discharge: ������������������ Date of : 50 Report #: [id number] THIS REPORT FOR: //name// CC: Wesley Costello DATE OF SERVICE: 01/06/2019 REASON FOR CONSULTATION: Sacral stage 4 pressure ulcer with significant necrotic tissue requiring debridement in the setting of morbid obesity, severe protein-calorie malnutrition, end-stage renal disease with hemodialysis, paraplegia for multiple sclerosis and diabetes mellitus type 2. HISTORY OF PRESENT ILLNESS: The patient is a very pleasant 68-year-old woman well known to the Wound Care team from care here at [facility] and at [facility]. This woman has paraplegia due to multiple sclerosis and developed a huge sacral stage 4 pressure ulcer, which has required multiple debridements in the past. She required a diverting colostomy, which had colostomy complications and bowel obstruction requiring revision. Colostomy is now working well. In her care at [facility], she was noted to have residual significant burden of necrotic tissue at the wound base and with significant necrotic skin and adipose tissue at the wound margins, which would require surgical debridement, so that the wound can receive negative pressure wound therapy of the wound VAC. She was transferred back to [facility] by Dr. Costello for surgical debridement by Dr. Jefferson. PAST MEDICAL HISTORY: Multiple sclerosis with paraplegia; end-stage renal disease on hemodialysis, diverting colostomy, history of upper gastrointestinal bleed due to gastritis, history of small-bowel obstruction, hypertension, diabetes mellitus type 2, history of deep vein thrombosis of right internal jugular related to central line which was removed, morbid obesity. PAST SURGICAL HISTORY: Debridement of sacral stage 4 pressure ulcer on multiple occasions, colostomy with colostomy revision. FAMILY HISTORY: Noncontributory. SOCIAL HISTORY: The patient has been living in medical facilities for several months now. ALLERGIES: None. MEDICATIONS: See chart. REVIEW OF SYSTEMS: Noncontributory. PHYSICAL EXAMINATION: [address] [address] CONSULTATION Name: RADHA ALEMAN Room #: 431-P [facility] IN ..#: [id number] Admission: 01/05/19 ������������������ Attend Phys: Joel Knox Discharge: ������������������ Date of : 50 Report #: [id number] GENERAL: Shows a very pleasant, alert and morbidly obese woman who is elderly. She is a good historian. HEENT: Mucous membranes are moist. NECK: Supple. LUNGS: Respirations are unlabored. ABDOMEN: Obese with a functioning colostomy and a midline wound partially opened and packed. EXTREMITIES: No wounds in lower extremities. BACK: Examination of the patient's back shows a very large sacral stage 4 decubitus ulcer measuring approximately 20 cm x 18 cm x 4 cm deep. There is significant necrotic tissue at the wound edges. There is significant necrotic tissue at the wound base, this will require debridement. IMPRESSION AND PLAN: 1. Morbid obesity. 2. End-stage renal disease, on hemodialysis. 3. Diabetes mellitus 2 with skin ulcer. 4. Sacral stage 4 decubitus ulcer with significant necrotic burden requiring surgical debridement, so that the wound can be effectively treated with the wound VAC. 5. Multiple sclerosis with paraplegia. 6. Severe protein-calorie malnutrition, albumin 1.5. 7. Nonhealing midline abdominal surgical wound open and packed. The patient will proceed with surgical debridement of her sacral wound on 01/08/2019. ��������������������������������������������� <ELECTRONICALLY SIGNED> ���������������������������������������� By: Keagan Hodge MD ��������������������������������������������� 01/07/19 1701 1019 2044 Keagan Hodge MD /nt
[2019-01-07 19:49] VITALS: BP 133/53
--- NOTE | 2019-01-08 04:11 | NUR ---
PT'S COLOSTOMY AND DRSG CHANGED.PT C/O PAIN ON HER SACRUM,MANAGED WITH PO MED.ISOLATION PRECAUTIONS MAINTAINED.PT NPO AT THIS TIME FOR A PROCEDURE LATER ON TODAY.BOBBI FISTULA POSITIVE FOR THRILL AND BRUIT.REPOSITIONED IN BED PER PT'S REQUEST SHE REFUSES SOMETIMES.CALL LIGHT WITHIN REACH.
[2019-01-08 05:18] VITALS: BP 103/52
--- NOTE | 2019-01-08 16:33 | NUR ---
PT ADMITTED RELATED TO SACRAL DECUB. CM REVIEWED CHART AND SPOKE WITH CARE TEAM. CM MET WITH PT AT BEDSIDE. PT IS A&O X4. CM ROLE INTRODUCED. PT INDICATED SHE HAD BEEN AT [facility] AND THAT SHE HADN'T BEEN OUT OF THE HOSPITAL SINCE JUL 2018. PT INDICATED SHE WASN'T SURE WHAT HER DC PLAN WOULD BE. CM SPOKW WITH ;LEONEL AT [facility] AND SHE INDICATED THEY COULD TAKE PT BACK UPON DC IF INDICATED. CM TO FOLLOW INDICATED WITH DC PLANNING.
--- NOTE | 2019-01-08 16:54 | NUR ---
WOUND CONSULT: PT. WAS SEEN TODAY BY THE WOUND CARE TEAM. PT. IS WELL KNOWN TO THE WOUND CARE TEAM. PT. HAS A STAGE 4 PRESSURE ULCER TO HER SACRUM, STAGE 3 TO HER LEFT LATERAL CALF, AND DEHISED MIDLINE ABDOMEN. RECOMMENDATIONS: SEE PLAN OF CARE. PT. AND STAFF NURSE WERE INSTRUCTED ON PLAN OF CARE.
[2019-01-08 17:27] VITALS: BP 104/44
[2019-01-08 20:33] VITALS: BP 114/50
--- NOTE | 2019-01-09 03:01 | NUR ---
PT IS ALERT AND ORIENTED- SLIGHTLY CONFUSED. COLOSTOMY BAG CHANGED WELL ABDOMINAL WOUND DRSG CHANGED TOO. DRSG TO SACCRUM INTACT. PT REPOSITIONED. SHE IS COOPERATIVE.SP CATHETER WITH ALMOST NO URINE.PT IS ON /NC-APPEARS COMFORTABLE. AFEBRILE. PAIN WELL MANAGED WITH ORAL HYDROCODONE.NPO AFTER MIDNOC FOR WOUND I/D TOMORROW?WILL CONTINUE WITH POC TILL EOS.
[2019-01-09 04:30] VITALS: BP 119/58
[2019-01-09 06:35] LABS: HEMATOCRIT 20.3 % (37.0-47.0); HEMOGLOBIN 6.5 gm/dL (12.0-15.0)
[2019-01-09 07:30] LABS: CALCIUM 8.5 mg/dL (8.5-10.1); CREATININE 3.4 mg/dL (0.6-1.0); POTASSIUM 3.8 mmol/L (3.5-5.1)
--- NOTE | 2019-01-09 08:52 | NUR ---
PT OFF THE UNIT AT THIS TIME.
[2019-01-09 11:07] VITALS: BP 101/46
[2019-01-09 11:30] VITALS: BP 101/46
--- NOTE | 2019-01-09 14:13 | NUR ---
Patient was admitted on 01/05/19 for sacral decubitus ulcer stage IV. Patient also has wound on midline of the abdomen. patient went to surgery for wound debridment. doctor cleaned up both wounds and did a wet to dry dressing. patient has colonastomy. patint needed blood transfusion because her Hgb was 6.5 and she lost some blood during surgery. she was NPO till about 1300 and she had lunch around 1300 patient didnt eat much because she didnt loke how the food tested. Patient is alereted and oriented x4.
--- NOTE | 2019-01-09 14:25 | NUR ---
I have reviewed and concur with student documentation.
[2019-01-09 17:42] VITALS: BP 104/58
[2019-01-09 21:00] VITALS: BP 90/48
--- NOTE | 2019-01-10 04:48 | NUR ---
ASSUMED CARE AT 1900, ASSESSMENT COMPLETED. PT DROWSY BUT AROUSEABLE. C/O SEVERE PAIN AT SACRAL WOUND, ESPECIALLY WITH MOVEMENT. REPOSITIONING EVERY TWO HOURS. DENIES NAUSEA OR SOB. WOKE UP AROUND 0200, CRYING OUT LOUDLY IN A LOT OF PAIN, GIVEN A DOSE OF IV MORPHINE WHICH HELPED. DRESSINGS TO SACRUM AND ABD ARE C/D/I, NO DRAINAGE NOTED. HS BLOOD SUGAR OF 129. CALDWELL HAS SCANT OUTPUT; WHAT IS PRESENT IS A VERY DARK BROWN. PLAN FOR DIALYSIS TODAY. NO OTHER CONCERNS, WILL CONTINUE TO MONITOR.
[2019-01-10 08:22] VITALS: BP 120/62
--- NOTE | 2019-01-10 10:56 | NUR ---
Possbile dc back to [facility] today. Pt in dialysis now. [facility] liason aware and agreeable. Will coordinate pending dc orders.
[2019-01-10 16:32] VITALS: BP 99/60
--- NOTE | 2019-01-10 16:44 | NUR ---
PT. DISCHARGING BACK TO [facility] FAXED DC ORDERS/SUMMARY TO FACILITY SPOKE WITH JASON IN ADM,. SHE RECEIVED ORDERS. ARRANGED TRANSPORT THROUGH [facility] TRIP #[id number] FOR [facility]ULANCE ([facility]) TRIED NOTIFYING PT'S SON BUT NO ANSWER AND NO VOICEMAIL. UNIT NOTIFIED AND CHART COPY PER US. RN TO CALL REPORT TO [phone].
--- NOTE | 2019-01-10 16:50 | NUR ---
WOUND FOLLOW UP: PT. WAS SEEN TODAY BY DR. HERRERA AND MYSELF. PT. WENT TO THE OR YESTERDAY AND HAD SURGICAL DEBRIDEMENT OF HER MIDLINE ABDMEN WOUND AND SACRAL WOUND. TODAY WOUNDS ARE CLINICALLY BETTER. PT. HAS NO COMPLAINTS. PT. WILL RETURN TO [facility] TODAY SO, DISCHARGE PLANNING WAS DISCUSSED. RECOMMENDATIONS: CONTINUE WITH CURRENT PLAN OF CARE. PT. AND STAFF NURSE WERE INSTRUCTED ON PLAN OF CARE.
--- NOTE | 2019-01-10 19:29 | NUR ---
PT WAITING FOR TRANSPORTATION TO TAKE PT BACK TO [facility]. SACRAL AND ABD WOUND DRSG CHANGED WELL LLE. IV REMOVED FROM L BREAST AND L FA.
--- NOTE | 2019-01-10 20:29 | O ---
[facility] [place] [address] OPERATIVE REPORT Name: RADHA ALEMAN Room #: 431-P ADM IN M.R.#: [id number] Admission: 01/05/19 ������������������ Attend Phys: Joel Knox Discharge: ������������������ Date of : 50 Report #: [id number] THIS REPORT FOR: //name// CC: Wesley Costello DATE OF SERVICE: 01/09/2019 SURGEON: Oscar Paulino MD [employer] LO[employer] PROCESSOR: None. PREOPERATIVE DIAGNOSES: 1. Stage 4 sacral decubitus ulcer. 2. Abdominal wound, status post exploratory laparotomy. 3. Type 2 diabetes mellitus. 4. Cirrhosis. 5. Congestive heart failure. 6. Chronic obstructive pulmonary disease. 7. Stage 4 chronic kidney disease. 8. Anxiety. POSTOPERATIVE DIAGNOSES: 1. Stage 4 sacral decubitus ulcer. 2. Abdominal wound, status post exploratory laparotomy. 3. Type 2 diabetes mellitus. 4. Cirrhosis. 5. Congestive heart failure. 6. Chronic obstructive pulmonary disease. 7. Stage 4 chronic kidney disease. 8. Anxiety. PROCEDURE: 1. Excisional and ultrasonic debridement (including skin, subcutaneous tissue, muscle and bone) of stage 4 sacral decubitus ulcer with a starting measurement of 225 cm2 and an ending measurement of 460 cm2. 2. Application of Interfyl skin substitute to sacral decubitus ulcer covering 460 cm2. 3. Excisional and ultrasonic debridement (including skin and subcutaneous tissue) of chronic abdominal wound measuring 66 cm2. 4. Application of Interfyl skin substitute to chronic abdominal wound covering 66 cm2. ANESTHESIA: General endotracheal anesthesia and local anesthetic. ESTIMATED BLOOD LOSS: 50 mL. [facility] [address] [place] [address] OPERATIVE REPORT Name: RADHA ALEMAN Room #: 431-P ADM IN M.R.#: [id number] Admission: 01/05/19 ������������������ Attend Phys: Joel Knox Discharge: ������������������ Date of : 50 Report #: [id number] SPECIMEN: Sacral skin, subcutaneous tissue and muscle; sacral bone, abdominal wall skin and subcutaneous tissue. COMPLICATIONS: None appreciated. INDICATIONS FOR PROCEDURE: This is a 68-year-old female patient with multiple medical issues who presented to [facility] for surgical debridement of her sacral wound. The patient has a history of multiple sclerosis and has been bedbound, developing wounds over the course of her illness and hospitalizations. She underwent a diverting colostomy to optimize the healing environment. However, she developed a bowel obstruction and colostomy issues, ultimately requiring revision of her colostomy with an exploratory laparotomy and reduction of herniated small bowel. Her colostomy was converted to an end colostomy. The patient has developed an abdominal wound associated with her midline incision with no evidence for fascial dehiscence. She also has had worsening of her sacral decubitus ulcer. She presents today for excisional and ultrasonic debridement of the wounds as well as application of skin substitute. PROCEDURE IN DETAIL: After the risks, benefits and expectations of the operation were discussed in detail with the patient, informed consent was obtained. The patient was identified in the preoperative holding area. She was given IV antibiotics as documented in the chart in line with SCIP metrics. The patient was then taken to the operating room and she was placed in the supine position. SCDs were placed on the patient's bilateral lower extremities and pneumatic compression was initiated. The patient was then given IV sedation. She was intubated without incident. She was placed in the prone position on the operating table and secured to the table. Her sacral area was prepped and draped in standard sterile fashion. Timeout was performed to identify the correct patient and procedure. Local anesthetic was infiltrated into the skin and subcutaneous tissue. A sharp #10 blade scalpel was used to make the incision around the necrotic tissue. The tissue was then sharply excised with electrocautery. Bleeding points were made hemostatic while excising the tissue. Removal of tissue involved the skin, subcutaneous tissue, and muscle all the way down to bone. The exposed bone from her previous debridements appeared infected and cultures were taken to be sent for aerobes, anaerobes and fungus. A rongeur was used to remove all necrotic appearing bone as well. A rasp was then used to smooth out the jagged edges of bone. After ensuring hemostasis, the [employer] ultrasonic debridement device was used to mechanically debride the entire surface area of the wound. There was good cavitation and bubbling of the tissue indicative of bursting of senescent cells and bacteria to decrease the bacterial load. Bleeding points were again made hemostatic. After ensuring hemostasis, 4.5 mL of Interfyl was topically applied to the wound and spread evenly throughout the surface area digitally. The wound was then dressed with Adaptic and a wet to dry Kerlix dressing, then covered with ABD pads and tape. The patient was returned to the supine position. [address] [address] OPERATIVE REPORT Name: RADHA ALEMAN Room #: 431-P [facility] IN M.R.#: [id number] Admission: 01/05/19 ������������������ Attend Phys: Joel Knox Discharge: ������������������ Date of : 50 Report #: [id number] The abdominal wound was debrided next. Local anesthetic was infiltrated into the skin and subcutaneous tissue. A sharp #10 blade scalpel was used to make an incision to excise the necrotic skin and all necrotic tissue. Fascial sutures were seen and removed. At this point in time, the sutures were providing no strength. There was no evidence for dehiscence. All necrotic tissue was excised down to healthy bleeding tissue. After doing so, the [employer] ultrasonic device was used to mechanically debride the entire surface area of the wound. Bleeding points were made hemostatic with electrocautery. A 1.5 mL of Interfyl was then topically applied to the wound and spread evenly throughout. Adaptic and a Silverlon dressing were placed. The wound was then covered with a wet to dry Kerlix dressing and an ABD pad. The stomal appliance was replaced. The patient tolerated the procedures well. She was awakened, extubated, and taken to recovery room in stable condition with no apparent intraoperative complications. ��������������������������������������������� <ELECTRONICALLY SIGNED> ���������������������������������������� By: Oscar Paulino MD, FACS ��������������������������������������������� 01/10/192028 [id number] Oscar Paulino MD, FACS /nt
--- NOTE | 2019-01-11 12:07 | PATH ---
[facility] [place] [address] PATHOLOGY RPT PROCEDURE Name: RADHA ALEMAN Room #: 431-P [facility] IN M.R.#: [id number] ������������������ Admission: 01/05/19 ������������������ Date of : 50 Discharge: 01/10/19 Report #: [id number] Path Case #: [id number] [facility] Accession Number: [id number] . 01 Material submitted: . PART A: SACRAL TISSUE PART B: SACRAL BONE PART C: ABDOMINAL TISSUE . 01 Clinical history: . Sacral wound . 02 Diagnosis: A. Sacral tissue, debridement: - Marked acute inflammation along with fibrinoid degeneration and gangrenous necrosis, consistent with debridement tissue. . B. Sacral bone, debridement: - Bone with osteonecrosis as well as acute and chronic osteomyelitis, consistent with debridement tissue. . C. Abdominal tissue, debridement: - Marked acute inflammation along with fibrinoid degeneration and gangrenous necrosis, consistent with debridement tissue. (IUV:sampson; 01/10/2019) QMS/01/10/2019 . 02 Electronically signed: . Enedelia Hawkins MD, Pathologist NPI- [id number] . 01 Gross description: . A. The specimen is received in formalin, labeled "Aleman, Radha, sacral tissue" and consists of multiple segments of necrotic valencia-brown skin with underlying yellow-pink tissue measuring 16.0 x 13.8 x 3.3 cm in aggregate. Order Processing Specialist tissue is submitted in A1. . B. The specimen is received in formalin, labeled "Aleman, Radha, sacral bone" and consists of multiple fragments of valencia-brown bone measuring 5.9 x 4.4 x 1.0 cm in aggregate. Order Processing Specialist tissue is submitted in B1 following decalcification. . C. The specimen is received in formalin, labeled "Aleman, Radha, abdominal tissue" and consists of 2 necrotic segments of dark lopez-valencia skin and underlying tissue measuring 4.9 x 4.3 x 1.5 cm in aggregate. Order Processing Specialist sections are submitted in C1. (SDY; 01/09/2019) [place] [address] PATHOLOGY RPT PROCEDURE Name: RADHA ALEMAN Room #: 431-P [facility] IN M.R.#: [id number] ������������������ Admission: 01/05/19 ������������������ Date of : 50 Discharge: 01/10/19 Report #: [id number] Path Case #: [id number] SYU/SYU . 02 Pathologist provided ICD-10: I96, M87.80, M86.10, M86.60 . 02 CPT . 739175, 676098, 641739, [id number] Specimen Comment: A courtesy copy of this report has been sent to Specimen Comment: [phone], . Specimen Comment: Report sent to / DR BLISS Specimen Comment: A duplicate report has been generated due to demographic updates. Performed at: [address] [facility] [id number] MD Michael Orozco MD Phone: [phone] Performed at: [address] [id number] MD Enedelia Hawkins MD Phone: [phone]
--- NOTE | 2019-01-12 14:55 | D ---
[facility] [place] [address] DISCHARGE SUMMARY Name: RADHA ALEMAN Room #: 431-P [facility] IN M.R.#: [id number] Admission: 01/05/19 ������������������ Attend Phys: Joel Knox Discharge: 01/10/19 ������������������ Date of : 50 Report #: [id number] THIS REPORT FOR: //name// CC: Wesley Costello FINAL DIAGNOSES: 1. Sacral decubitus wound. 2. End-stage renal disease. HOSPITAL COURSE: The patient was admitted for sacral wound debridement. Please see the operative note. Otherwise, she continued wound care and other medications and bedside hemodialysis. She had no other medical complications. DISPOSITION: She will return to [facility] facility for ongoing wound care and dialysis support and medical management. Her usual medications will continue. Our service will follow her stay there. ��������������������������������������������� <ELECTRONICALLY SIGNED> ���������������������������������������� By: Lucho Neal MD ��������������������������������������������� 01/12/19 1455 1228 21 Lucho Neal MD /nt
== END 2019-01-10 20:05 | DRG 570 ==
LOC: 4E 14:21
PROVIDERS: Anesthesiology; Internal Medicine Geriatric Medicine; Surgery; ADMIT Internal Medicine
PROC: 5A1D70Z Performance of Urinary Filtration, Intermittent, Less than 6 Hours Per Day (ICD-10-PCS; principal; 2019-01-08)
PROC: 30233N1 Transfusion of Nonautologous Red Blood Cells into Peripheral Vein, Percutaneous Approach (ICD-10-PCS; 2019-01-09)
PROC: 0QB10ZZ Excision of Sacrum, Open Approach (ICD-10-PCS; 2019-01-09)
PROC: 0JB80ZZ Excision of Abdomen Subcutaneous Tissue and Fascia, Open Approach (ICD-10-PCS; 2019-01-09)
PROC: 5A1D70Z Performance of Urinary Filtration, Intermittent, Less than 6 Hours Per Day (ICD-10-PCS; 2019-01-10)
DX: L89.154 Pressure ulcer of sacral region, stage 4 (principal); E43 Unspecified severe protein-calorie malnutrition; N18.6 End stage renal disease; G82.20 Paraplegia, unspecified; I13.2 Hypertensive heart and chronic kidney disease with heart failure and with stage 5 chronic kidney disease, or end stage renal disease; L89.893 Pressure ulcer of other site, stage 3; E11.622 Type 2 diabetes mellitus with other skin ulcer; E11.51 Type 2 diabetes mellitus with diabetic peripheral angiopathy without gangrene; E66.01 Morbid (severe) obesity due to excess calories; D63.8 Anemia in other chronic diseases classified elsewhere; K74.60 Unspecified cirrhosis of liver; F41.9 Anxiety disorder, unspecified; J44.9 Chronic obstructive pulmonary disease, unspecified; I50.9 Heart failure, unspecified; E11.22 Type 2 diabetes mellitus with diabetic chronic kidney disease; G35 Multiple sclerosis; Z90.49 Acquired absence of other specified parts of digestive tract; Z83.3 Family history of diabetes mellitus; Z82.49 Family history of ischemic heart disease and other diseases of the circulatory system; Z93.3 Colostomy status; Z86.718 Personal history of other venous thrombosis and embolism; Z68.37 Body mass index [BMI] 37.0-37.9, adult; Z90.710 Acquired absence of both cervix and uterus; Z90.10 Acquired absence of unspecified breast and nipple; Z79.899 Other long term (current) drug therapy; Z99.2 Dependence on renal dialysis
CPT/HCPCS: 10783; 32100; 50010; 50101; 50386; 50403; 57119; 57120; 57192; 62110; 62900; 65090; 70005